=== PATIENT | male | born 1960 | race Caucasian/White ===

== ENCOUNTER → 2019-01-25 | Outpatient (CLI) | payer MEDICARE, BC ==
--- NOTE | 2019-01-25 12:10 | US ---
EXAMINATION TYPE: US venous doppler duplex LE RT DATE OF EXAM: 01/25/2019 11:44 AM COMPARISON: NONE CLINICAL HISTORY: M79.661 PAIN IN RT LOWER LIMB. Rt calf "jeronimo horse" x few months. No hx of bloo d clots. No blood thinners. No swelling. No redness. No previous surgeries. SIDE PERFORMED: Right TECHNIQUE: The lower extremity deep venous system is examined utilizing real time linear array sonog bailey with graded compression, doppler sonography and color-flow sonography. VESSELS IMAGED: External Iliac Vein (EIV) Common Femoral Vein Deep Femoral Vein Greater Saphenous Vein * Femoral Vein Popliteal Vein Small Saphenous Vein * Proximal Calf Veins (* superficial vessels) Right Leg: Negative for DVT IMPRESSION: 1. Right lower extremity ultrasound negative for deep venous thrombosis.
== END | disposition home or self-care (01) ==
LOC: RADUSWWP 11:10
PROVIDERS: ATTEND Internal Medicine
DX: M79.661 Pain in right lower leg (principal)

== ENCOUNTER 2019-08-12 06:54 | Day surgery (SDC) | payer MEDICARE, BC ==
[2019-08-07 14:25] VITALS: BMI 27.2
[~2019-08-12 06:54] MED LIST: LACTATED RINGERS 1,000 ML IV SCH; LIDOCAINE 1% 20 ML VIAL (10MG/ML) FOR IV START INTRADERMA PRN
[2019-08-12] MEDS ORDERED: LACTATED RINGERS 1,000 ML IV ONE (07:04)
[2019-08-12 07:13] VITALS: TEMP 97.7
[2019-08-12 07:26] LABS: Glucose,Whole Blood 191 mg/dL (75-99)
[2019-08-12] MEDS ORDERED: PROPOFOL 10 MG/ML 20 ML VIAL IV ONE (07:29)
--- NOTE | 2019-08-12 08:42 | P.PCN ---
Date of Procedure: 08/12/19 Description of Procedure: BRIEF HISTORY: Patient is a 58-year-old pleasant male scheduled for an elective colonoscopy as a part of evaluation for a personal history of colon polyps as well as family history of colon cancer. He reports 2 colonoscopies in the past and believes that the last 5 years ago was normal but that 10 years ago he had polyps. He also reports a family history of colon cancer in his father in his 50s. No other acute complaints at this time. PROCEDURE PERFORMED: Colonoscopy with polypectomy . PREOPERATIVE DIAGNOSIS: Personal history of colon polyps, family history of colon cancer in his father in his 50s ESTIMATED BLOOD LOSS: Minimal. IV sedation per Anesthesia. PROCEDURE: After informed consent was obtained, the patient, was brought into the endoscopy unit. IV sedation was administered by Anesthesia under continuous monitoring. Digital rectal examination was normal. Initially the Olympus CF-190 flexible video colonoscope was then inserted in the rectum, gradually advanced into the cecum without any difficulty. Careful examination was performed as the scope was gradually being withdrawn. The appendiceal orifice were visualized and appeared normal. Prep was excellent. Mucosa of the cecum, ascending colon, transverse colon, descending colon, sigmoid colon, and rectum appearedgrossly normal. There was a large flat tubulovillous-appearing polyp in the cecum on the distal side of the ileocecal valve measuring approximately 3 cm with a snare polypectomy used to take a piece of the polyp for sampling on the edge. 2 other polyps seen in the measuring 6 mm and 7 mm also removed with hot snare polypectomy. Retroflexion was performed in the rectum and no lesions were seen. The patient tolerated the procedure well. IMPRESSION: Large tubulovillous-appearing polyp in the cecum sampled with hot snare polypectomy. 2 polyps measuring 6 and 7 mm adjacent to this polyp removed with hot snare polypectomy. RECOMMENDATIONS: Findings of this examination were discussed with the patient and his . Await pathology from polypectomy. Patient will likely need referral to advance endoscopy service for further intervention and removal of the polyp, with referral based on findings from pathology.
[2019-08-12 08:46] VITALS: PULSE 65; RESP 18
[2019-08-12 09:10] VITALS: BP 111/70
== END 2019-08-12 09:45 | disposition home or self-care (01) ==
LOC: ORWHC2ENDO 06:54
PROVIDERS: ATTEND Internal Medicine
DX: Z12.11 Encounter for screening for malignant neoplasm of colon (principal); D12.0 Benign neoplasm of cecum; I10 Essential (primary) hypertension; E11.9 Type 2 diabetes mellitus without complications; E07.9 Disorder of thyroid, unspecified; F32.9 Major depressive disorder, single episode, unspecified; Z87.891 Personal history of nicotine dependence; Z80.0 Family history of malignant neoplasm of digestive organs; Z79.84 Long term (current) use of oral hypoglycemic drugs; Z79.890 Hormone replacement therapy; Z79.899 Other long term (current) drug therapy; Z90.89 Acquired absence of other organs; Z85.828 Personal history of other malignant neoplasm of skin; Z98.890 Other specified postprocedural states; Z83.71 Family history of colonic polyps; Z88.1 Allergy status to other antibiotic agents; Z88.0 Allergy status to penicillin; Z88.8 Allergy status to other drugs, medicaments and biological substances; Z88.5 Allergy status to narcotic agent; Z85.818 Personal history of malignant neoplasm of other sites of lip, oral cavity, and pharynx; Z86.010 Personal history of colon polyps
CPT/HCPCS: 88305; 45385; J2704

== ENCOUNTER 2020-01-05 05:30 | Emergency (ER) | payer MEDICARE, BC ==
[2020-01-05 05:39] VITALS: TEMP 97.7
[2020-01-05] MEDS ORDERED: SODIUM CHLORIDE 0.9% 1,000 ML IV STA (05:57)
[2020-01-05] MEDS ORDERED: KETOROLAC 30 MG/ML 1 ML VIAL IVP STA (06:08)
[2020-01-05 06:09] LABS: Basophils % (A) 0 %; Eosinophils # (A) 0.5 k/uL (0-0.7); Eosinophils % (A) 5 %; HCT 48.1 % (39.0-53.0); Lymphocytes # (A) 3.3 k/uL (1.0-4.8); Lymphocytes % (A) 30 %; MCH 33.4 pg (25.0-35.0); MCHC 33.4 g/dL (31.0-37.0); MCV 100.1 fL (80.0-100.0); Mean Platelet Volume 7.7; Monocytes # (A) 0.7 k/uL (0-1.0); Monocytes % (A) 7 %; Neutrophils # (A) 6.3 k/uL (1.3-7.7); Neutrophils % (A) 57 %; Platelet Count 311 k/uL (150-450); RDW 11.9 % (11.5-15.5); WBC 11.1 k/uL (3.8-10.6)
[2020-01-05 06:18] LABS: ALT 15 U/L (4-49); AST 23 U/L (17-59); African American GFR (CKD) >90 (>60 ml/min/1.73 sqM); Albumin 4.5 g/dL (3.5-5.0); Alkaline Phosphatase 63 U/L (38-126); Amylase 49 U/L (30-110); Anion Gap 10 mmol/L; Blood Urea Nitrogen 11 mg/dL (9-20); Calcium 9.6 mg/dL (8.4-10.2); Carbon Dioxide 24 mmol/L (22-30); Chloride 103 mmol/L (98-107); Glucose 152 mg/dL (74-99); Non-African American GFR(CKD) >90 (>60 ml/min/1.73 sqM); Potassium 4.7 mmol/L (3.5-5.1); Sodium 137 mmol/L (137-145); Total Bilirubin 0.7 mg/dL (0.2-1.3); Total Protein 7.5 g/dL (6.3-8.2)
--- NOTE | 2020-01-05 06:25 | ED ---
Abdominal Pain HPI - General Chief Complaint: Abdominal Pain Stated Complaint: Right flank pain Time Seen by Provider: 01/05/20 06:04 Source: patient, RN notes reviewed Mode of arrival: ambulatory Limitations: no limitations - History of Present Illness Initial Comments: This a 59-year-old male presents emergency Department chief complaint of right-sided abdominal, right flank pain. Patient states has been present for last 1 week. Patient states that the dull achy type pain is worse when he tries to turn over or especially when he tries to get out of bed. He denies any trauma. Denies any chest pain or shortness breath no fevers or chills. States that loose stools no melanotic stools or hematochezia. Patient has no complaints of dysuria or hematuria no nausea vomiting. Patient said no prior abdominal surgeries he does admit that he had a colonoscopy in August and which has small polyp removed at that time sounded very large polyp and was referred down to [place] to another surgeon. At this time he had the polyp removed. Patient does not believe he had any injury but he does state that his been doing more work around house. - Related Data Home Medications Medication Instructions Recorded Confirmed Divalproex Sodium [Depakote] 500 mg PO BID 06/11/14 08/12/19 metFORMIN HCL [Glucophage] 1,000 mg PO BID 06/11/14 08/12/19 Levothyroxine Sodium [Synthroid] 25 mcg PO DAILY 08/07/19 08/12/19 glipiZIDE [Glucotrol] 5 mg PO DAILY 08/07/19 08/12/19 Previous Rx's Medication Instructions Recorded Ibuprofen [Motrin] 600 mg PO Q8HR PRN #20 tab 01/05/20 Allergies Allergy/AdvReac Type Severity Reaction Status Date / Time tetracycline [Tetracycline] Allergy Rash/Hives Verified 01/05/20 05:39 Review of Systems ROS Statement: Those systems with pertinent positive or pertinent negative responses have been documented in the HPI. ROS Other: All systems not noted in ROS Statement are negative. Past Medical History Past Medical History: Cancer, Diabetes Mellitus, Hypertension, Thyroid Disorder Additional Past Medical History / Comment(s): skin cancer,throat cancer, had pancreatitis in summer or 2012 History of Any Multi-Drug Resistant Organisms: None Reported Past Surgical History: Appendectomy Additional Past Surgical History / Comment(s): basal cell removed lt shoulder , head Past Anesthesia/Blood Transfusion Reactions: No Reported Reaction Past Psychological History: Bipolar Smoking Status: Current every day smoker Past Alcohol Use History: Daily Past Drug Use History: Marijuana - Past Family History Mother Family Medical History: No Reported History General Exam Limitations: no limitations General appearance: alert, in no apparent distress Head exam: Present: atraumatic, normocephalic, normal inspection Eye exam: Present: normal appearance, PERRL, EOMI. Absent: scleral icterus, conjunctival injection, periorbital swelling ENT exam: Present: normal exam, normal oropharynx, mucous membranes moist Neck exam: Present: normal inspection. Absent: tenderness, meningismus, lymphadenopathy Respiratory exam: Present: normal lung sounds bilaterally, chest wall tenderness (Tenderness over lower ribs on the right). Absent: respiratory distress, wheezes, rales, rhonchi, stridor Cardiovascular Exam: Present: regular rate, normal rhythm, normal heart sounds. Absent: systolic murmur, diastolic murmur, rubs, gallop, clicks GI/Abdominal exam: Present: soft, tenderness, normal bowel sounds. Absent: distended, guarding, rebound, rigid Back exam: Absent: CVA tenderness (R), CVA tenderness (L) Neurological exam: Present: alert, oriented X3, CN II-XII intact Skin exam: Present: warm, dry, intact, normal color. Absent: rash Course Vital Signs 01/05/20 01/05/20 05:36 07:16 Temperature 97.7 F Pulse Rate 84 80 Respiratory 16 18 Rate Blood Pressure 111/79 158/83 O2 Sat by Pulse 99 98 Oximetry Medical Decision Making - Medical Decision Making 59-year-old male presented for right-sided abdominal pain. This is reproducible over the ribs. I do feel this is related to a strain. Patient workup was negative other than finding of aortic aneurysm 5.6 which is not ruptured. Pulse s are equal bilaterally lower extremity is. Patient advised to follow-up with the primary care physician and vascular surgeon. - Lab Data Result diagrams: 01/05/20 05:59 01/05/20 05:59 Lab Results 01/05/20 01/05/20 01/05/20 Range/Units 05:59 05:59 05:59 WBC 11.1 H (3.8-10.6) k/uL RBC 4.80 (4.30-5.90) m/uL Hgb 16.0 (13.0-17.5) gm/dL Hct 48.1 (39.0-53.0) % MCV 100.1 H (80.0-100.0) fL MCH 33.4 (25.0-35.0) pg MCHC 33.4 (31.0-37.0) g/dL RDW 11.9 (11.5-15.5) % Plt Count 311 (150-450) k/uL Neutrophils % 57 % Lymphocytes % 30 % Monocytes % 7 % Eosinophils % 5 % Basophils % 0 % Neutrophils # 6.3 (1.3-7.7) k/uL Lymphocytes # 3.3 (1.0-4.8) k/uL Monocytes # 0.7 (0-1.0) k/uL Eosinophils # 0.5 (0-0.7) k/uL Basophils # 0.0 (0-0.2) k/uL Sodium 137 (137-145) mmol/L Potassium 4.7 (3.5-5.1) mmol/L Chloride 103 (98-107) mmol/L Carbon Dioxide 24 (22-30) mmol/L Anion Gap 10 mmol/L BUN 11 (9-20) mg/dL Creatinine 0.91 (0.66-1.25) mg/dL Est GFR (CKD-EPI)AfAm >90 (>60 ml/min/1.73 sqM) Est GFR (CKD-EPI)NonAf >90 (>60 ml/min/1.73 sqM) Glucose 152 H (74-99) mg/dL Plasma Lactic Acid Gopal 1.6 (0.7-2.0) mmol/L Calcium 9.6 (8.4-10.2) mg/dL Total Bilirubin 0.7 (0.2-1.3) mg/dL AST 23 (17-59) U/L ALT 15 (4-49) U/L Alkaline Phosphatase 63 (38-126) U/L Total Protein 7.5 (6.3-8.2) g/dL Albumin 4.5 (3.5-5.0) g/dL Amylase 49 (30-110) U/L Lipase 135 (23-300) U/L Urine Color Urine Appearance (Clear) Urine pH (5.0-8.0) Ur Specific [place] (1.001-1.035) Urine Protein (Negative) Urine Glucose (UA) (Negative) Urine Ketones (Negative) Urine Blood (Negative) Urine Nitrite (Negative) Urine Bilirubin (Negative) Urine Urobilinogen (<2.0) mg/dL Ur Leukocyte Esterase (Negative) 01/05/20 Range/Units 07:05 WBC (3.8-10.6) k/uL RBC (4.30-5.90) m/uL Hgb (13.0-17.5) gm/dL Hct (39.0-53.0) % MCV (80.0-100.0) fL MCH (25.0-35.0) pg MCHC (31.0-37.0) g/dL RDW (11.5-15.5) % Plt Count (150-450) k/uL Neutrophils % % Lymphocytes % % Monocytes % % Eosinophils % % Basophils % % Neutrophils # (1.3-7.7) k/uL Lymphocytes # (1.0-4.8) k/uL Monocytes # (0-1.0) k/uL Eosinophils # (0-0.7) k/uL Basophils # (0-0.2) k/uL Sodium (137-145) mmol/L Potassium (3.5-5.1) mmol/L Chloride (98-107) mmol/L Carbon Dioxide (22-30) mmol/L Anion Gap mmol/L BUN (9-20) mg/dL Creatinine (0.66-1.25) mg/dL Est GFR (CKD-EPI)AfAm (>60 ml/min/1.73 sqM) Est GFR (CKD-EPI)NonAf (>60 ml/min/1.73 sqM) Glucose (74-99) mg/dL Plasma Lactic Acid Gopal (0.7-2.0) mmol/L Calcium (8.4-10.2) mg/dL Total Bilirubin (0.2-1.3) mg/dL AST (17-59) U/L ALT (4-49) U/L Alkaline Phosphatase (38-126) U/L Total Protein (6.3-8.2) g/dL Albumin (3.5-5.0) g/dL Amylase (30-110) U/L Lipase (23-300) U/L Urine Color Light Yellow Urine Appearance Clear (Clear) Urine pH 6.5 (5.0-8.0) Ur Specific [place] 1.008 (1.001-1.035) Urine Protein Negative (Negative) Urine Glucose (UA) Negative (Negative) Urine Ketones Negative (Negative) Urine Blood Negative (Negative) Urine Nitrite Negative (Negative) Urine Bilirubin Negative (Negative) Urine Urobilinogen <2.0 (<2.0) mg/dL Ur Leukocyte Esterase Negative (Negative) Disposition Clinical Impression: Muscle strain of anterior chest wall Disposition: HOME SELF-CARE Condition: Stable Instructions (If sedation given, give patient instructions): Muscle Strain (ED) Additional Instructions: Please return to the Emergency Department if symptoms worsen or any other concerns. Prescriptions: Ibuprofen [Motrin] 600 mg PO Q8HR PRN #20 tab PRN Reason: Pain Is patient prescribed a controlled substance at d/c from ED?: No Referrals: Marin Eaton MD [Primary Care Provider] - 1-2 days Time of Disposition: 07:39
--- NOTE | 2020-01-05 06:49 | XR ---
EXAMINATION TYPE: XR KUB DATE OF EXAM: 01/05/2020 COMPARISON: NONE HISTORY: Abdominal pain TECHNIQUE: 2 views FINDINGS: 2 views upright show a normal bowel gas pattern. There is no sign of intestinal obstruction or pneumoperitoneum. Fecal pattern is normal. There are no pathologic calcifications. Lung bases are clear. IMPRESSION: Nonacute abdomen. No change.
[2020-01-05 07:13] LABS: Appearance,Urine Clear (Clear); Bilirubin,Urine Negative (Negative); Blood,Urine Negative (Negative); Color,Urine Light Yellow; Glucose,Urine (UA) Negative (Negative); Ketones,Urine Negative (Negative); Leukocyte Esterase,Urine Negative (Negative); Nitrite,Urine Negative (Negative); PH, Urine 6.5 (5.0-8.0); Protein,Urine Negative (Negative); Specific Gravity,Urine 1.008 (1.001-1.035); Urobilinogen,Urine <2.0 mg/dL (<2.0)
[2020-01-05 07:17] VITALS: BP 158/83; PULSE 80; RESP 18
--- NOTE | 2020-01-05 07:28 | CT ---
EXAMINATION TYPE: CT abdomen pelvis w con DATE OF EXAM: 01/05/2020 REFERENCE: NONE HISTORY: Abdominal pain HISTORY: Right sided flank pain. CT DLP: 967 mGy Automated exposure control for dose reduction was used. TECHNIQUE: Helical acquisition through the abdomen and pelvis was obtained following the oral ingesti on of without Oral Contrast and following intravenous administration of 100ml mL of Isovue 300. The d ricardo was reformatted in axial, coronal and sagittal projections. FINDINGS: There is minimal dependent atelectasis at the lung bases. There is no pleural or pericardi al fluid. The heart is not enlarged. Within the abdomen, the liver, spleen and gallbladder are normal. There is mild fullness to both adrenal glands but no definite adrenal mass is seen. Both kidneys demonstrate function and appear morphologically normal. The pancreas is unremarkable. There is a infrarenal abdominal aortic aneurysm with maximal transverse diameter of 5.6 cm. This exte nds to but does not involve the aortic bifurcation. There is moderate atheromatous calcification of t he visualized arterial tree. There is no significant retroperitoneal, iliac or inguinal adenopathy. There is calcification of the prostate gland. There is thickening of the bladder wall measuring up to 5.3 mm in width. This may relate to chronic bladder obstruction. Cystitis would need to BE excluded. There are scattered diverticula within the sigmoid colon without radiographic evidence of diverticuli tis. The appendix is unremarkable. Small bowel loops are of normal caliber. There is no free fluid and no free air identified. There is facet arthropathy within the lumbar facets. There is mild wedging of the T12 and L1 vertebra l IMPRESSION: 1. NO EVIDENCE OF HYDRONEPHROSIS OR NEPHROLITHIASIS. 2. INFRARENAL ABDOMINAL AORTIC ANEURYSM WITH MAXIMAL TRANSVERSE DIAMETER OF 5.6 3. CENTIMETERS. 3. BLADDER WALL THICKENING, EITHER DUE TO CHRONIC BLADDER OBSTRUCTION OR CYSTITIS. PLEASE CORRELATE C LINICALLY. 4. UNCOMPLICATED DIVERTICULOSIS OF THE SIGMOID COLON.
[2020-01-05] MEDS ORDERED: ACET/COD 300 MG/30 MG STARTER PACK 6 TAB BTL PO STA (07:37)
== END 2020-01-05 07:51 | disposition home or self-care (01) ==
LOC: EC 05:30
DX: S29.011A Strain of muscle and tendon of front wall of thorax, initial encounter (principal); E11.9 Type 2 diabetes mellitus without complications; I10 Essential (primary) hypertension; F31.9 Bipolar disorder, unspecified; E07.9 Disorder of thyroid, unspecified; I71.4 Abdominal aortic aneurysm, without rupture; F17.200 Nicotine dependence, unspecified, uncomplicated; Z79.84 Long term (current) use of oral hypoglycemic drugs; Z79.890 Hormone replacement therapy; Z79.899 Other long term (current) drug therapy; Z88.1 Allergy status to other antibiotic agents; Z85.828 Personal history of other malignant neoplasm of skin
CPT/HCPCS: 99284; 96374; 96361 ×2; 36415; 80053; 82150; 83605; 83690; 85025; 81003; 74018; 74177; J1885; Q9967

== ENCOUNTER 2020-08-12 06:24 | Day surgery (SDC) | payer MEDICARE, BC ==
[2020-08-10 16:51] VITALS: BMI 26.5
[~2020-08-12 06:24] MED LIST changes: +LIDOCAINE 1% (10MG/ML) FOR IV START INTRADERMA PRN; -LIDOCAINE 1% 20 ML VIAL (10MG/ML) FOR IV START INTRADERMA PRN
[2020-08-12] MEDS ORDERED: LACTATED RINGERS 1,000 ML IV ONE (06:40)
[2020-08-12 06:53] LABS: Glucose,Whole Blood 189 mg/dL (75-99)
[2020-08-12 07:01] VITALS: RESP 16; TEMP 98
[2020-08-12] MEDS ORDERED: PROPOFOL 10 MG/ML 20 ML VIAL IV ONE (07:10)
[2020-08-12] MEDS ORDERED: LIDOCAINE 1% INJ 10MG/ML (20 ML MDV) ONE (07:10)
--- NOTE | 2020-08-12 07:23 | P.PCN ---
Date of Procedure: 08/12/20 Procedure(s) Performed: BRIEF HISTORY: Patient is a 59-year-old, pleasant, male scheduled for an upper endoscopy as a part of evaluation of chronic epigastric pain for the last 4 months duration. He was recently started on Protonix 40 mg twice daily and symptoms gradually improving.. PROCEDURE PERFORMED: Esophagogastroduodenoscopy. With the biopsy PREOPERATIVE DIAGNOSIS: . chronic epigastric pain of 4 months duration IV sedation per anesthesia. PROCEDURE: After informed consent was obtained, the patient was brought into the endoscopy unit. IV sedation was administered by Anesthesia under continuous monitoring. Initially the Olympus GIF-140 video endoscope was inserted into the mouth. Esophagus intubated without any difficulty. It was gradually advanced into the stomach and duodenum and carefully examined. The bulb and the second part of the duodenum appeared normal. The scope at this time was withdrawn to the stomach, adequately insufflated with air, and upon careful examination, mucosa of the antrum, had mild mottling of the mucosa consistent with gastritis and biopsies were done from this area. The body, cardia and the fundus appeared normal. The scope was then withdrawn into the esophagus. The GE junction was located at 39 cm from the incisors. there was one small erosion at the GE junction consistent with LA grade a reflux esophagitis. The rest of the esophagus appeared normal. biopsies were done from the distal esophagus. The patient tolerated the procedure well. IMPRESSION: 1. Mild antral gastritis 2. One superficial erosion at the GE junction consistent with LA grade A reflux esophagitis. RECOMMENDATIONS: The findings of this examination were discussed with the patient as well as his family. He was advised to follow with the biopsy results. He was advised to continue with Protonix 40 mg twice daily and continue to follow antireflux measures.
[2020-08-12 07:34] VITALS: BP 155/78; PULSE 95
== END 2020-08-12 08:28 | disposition home or self-care (01) ==
LOC: ORWHC2ENDO 06:24
PROVIDERS: ATTEND Internal Medicine Gastroenterology
DX: K29.50 Unspecified chronic gastritis without bleeding (principal); K21.00 Gastro-esophageal reflux disease with esophagitis, without bleeding; G89.29 Other chronic pain; I10 Essential (primary) hypertension; F17.210 Nicotine dependence, cigarettes, uncomplicated; E11.9 Type 2 diabetes mellitus without complications; E07.9 Disorder of thyroid, unspecified; F31.9 Bipolar disorder, unspecified; Z79.84 Long term (current) use of oral hypoglycemic drugs; Z79.890 Hormone replacement therapy; Z79.899 Other long term (current) drug therapy; Z88.1 Allergy status to other antibiotic agents
CPT/HCPCS: 88305; 43239; J2001; J2704

== ENCOUNTER 2020-10-22 03:55 | Emergency (ER) | payer MEDICARE, BC ==
[2020-10-22 04:05] VITALS: RESP 18
[2020-10-22] MEDS ORDERED: SODIUM CHLORIDE 0.9% 1,000 ML IV STA (04:11)
[2020-10-22] MEDS ORDERED: MORPHINE SULFATE 4 MG/ML SYRINGE IV STA (04:11)
--- NOTE | 2020-10-22 04:13 | ED ---
Abdominal Pain HPI - General Chief Complaint: Abdominal Pain Stated Complaint: Abd Pain Time Seen by Provider: 10/22/20 04:02 Source: patient, RN notes reviewed, old records reviewed Mode of arrival: ambulatory Limitations: no limitations - History of Present Illness Initial Comments: This is a 60-year-old male coming in for evaluation of abdominal pain. Patient is very emotional states pain woke him up from sleep. Patient states had nothing but complications nothing requiring surgery or nothing serious but which is chronic pain ever since having abdominal surgery for abdominal aneurysm. Patient is afebrile no significant weight loss. Decreased appetite and normal bowel movements. Otherwise no other significant complaints MD Complaint: abdominal pain Location: diffuse Radiation: epigastric Migration to: epigastric Severity: moderate Severity scale (1-10): 4 Quality: cramping, stabbing Consistency: intermittent Improves With: nothing Context: recent surgery/procedure (1 year) Associated Symptoms: nausea Treatments Prior to Arrival: NSAIDs, antacids - Related Data Home Medications Medication Instructions Recorded Confirmed Divalproex Sodium [Depakote] 500 mg PO TID 06/11/14 08/12/20 metFORMIN HCL [Glucophage] 1,000 mg PO BID 06/11/14 08/12/20 Levothyroxine Sodium [Synthroid] 25 mcg PO DAILY 08/07/19 08/12/20 glipiZIDE [Glucotrol] 5 mg PO DAILY 08/07/19 08/12/20 Lisinopril [Prinivil] 10 mg PO DAILY 08/10/20 08/12/20 Pantoprazole Sodium 40 mg PO DAILY 08/10/20 08/12/20 Allergies Allergy/AdvReac Type Severity Reaction Status Date / Time tetracycline [Tetracycline] Allergy Rash/Hives Verified 10/22/20 04:04 Review of Systems ROS Statement: Those systems with pertinent positive or pertinent negative responses have been documented in the HPI. ROS Other: All systems not noted in ROS Statement are negative. Past Medical History Past Medical History: Cancer, Diabetes Mellitus, Hypertension, Thyroid Disorder Additional Past Medical History / Comment(s): skin cancer,throat cancer, had pancreatitis in summer or 2012, ABD. PAIN WITH NAUSEA History of Any Multi-Drug Resistant Organisms: None Reported Past Surgical History: Appendectomy Additional Past Surgical History / Comment(s): basal cell removed lt shoulder & head, COLONOSCOPY, AAA REPAIR-3 MONTHS AGO AT [facility]. Past Anesthesia/Blood Transfusion Reactions: No Reported Reaction Past Psychological History: Bipolar Smoking Status: Current every day smoker Past Alcohol Use History: None Reported Past Drug Use History: Marijuana - Past Family History Mother Family Medical History: No Reported History General Exam Limitations: no limitations General appearance: alert, in no apparent distress Head exam: Present: atraumatic, normocephalic, normal inspection Eye exam: Present: normal appearance, PERRL, EOMI. Absent: scleral icterus, conjunctival injection, periorbital swelling ENT exam: Present: normal exam, mucous membranes moist Neck exam: Present: normal inspection. Absent: tenderness, meningismus, lymphadenopathy Respiratory exam: Present: normal lung sounds bilaterally. Absent: respiratory distress, wheezes, rales, rhonchi, stridor Cardiovascular Exam: Present: regular rate, normal rhythm, normal heart sounds. Absent: systolic murmur, diastolic murmur, rubs, gallop, clicks GI/Abdominal exam: Present: soft, normal bowel sounds. Absent: distended, tenderness, guarding, rebound, rigid Extremities exam: Present: normal inspection, full ROM, normal capillary refill. Absent: tenderness, pedal edema, joint swelling, calf tenderness Back exam: Present: normal inspection Neurological exam: Present: alert, oriented X3, CN II-XII intact Psychiatric exam: Present: normal affect, normal mood Skin exam: Present: warm, dry, intact, normal color. Absent: rash Course Vital Signs 10/22/20 10/22/20 03:58 05:30 Temperature 98.4 F 98 F Pulse Rate 82 88 Respiratory 18 18 Rate Blood Pressure 91/62 103/79 O2 Sat by Pulse 100 97 Oximetry - Reevaluation(s) Reevaluation #1: 10/22/20 05:03 medical record is reviewed Reevaluation #2: 10/22/20 07:04 Patient reevaluated and symptoms are improved Reevaluation #3: 10/22/20 07:04 spoke patient length regarding findings, questions have been answered Medical Decision Making - Medical Decision Making 60 male DF for eval [place] pain chronic abdominal pain for one year. Patient feels better here in the ER is in no distress. Labwork scan are normal. Patient can be discharged home - Lab Data Result diagrams: 10/22/20 04:39 10/22/20 04:39 Lab Results 10/22/20 10/22/20 10/22/20 Range/Units 04:39 04:39 04:39 WBC 13.2 H (3.8-10.6) k/uL RBC 5.05 (4.30-5.90) m/uL Hgb 16.9 (13.0-17.5) gm/dL Hct 49.9 (39.0-53.0) % MCV 98.8 (80.0-100.0) fL MCH 33.5 (25.0-35.0) pg MCHC 33.9 (31.0-37.0) g/dL RDW 12.6 (11.5-15.5) % Plt Count 266 (150-450) k/uL MPV 7.6 Neutrophils % 75 % Lymphocytes % 16 % Monocytes % 6 % Eosinophils % 2 % Basophils % 0 % Neutrophils # 9.8 H (1.3-7.7) k/uL Lymphocytes # 2.2 (1.0-4.8) k/uL Monocytes # 0.8 (0-1.0) k/uL Eosinophils # 0.3 (0-0.7) k/uL Basophils # 0.0 (0-0.2) k/uL Sodium 136 L (137-145) mmol/L Potassium 4.5 (3.5-5.1) mmol/L Chloride 105 (98-107) mmol/L Carbon Dioxide 25 (22-30) mmol/L Anion Gap 6 mmol/L BUN 13 (9-20) mg/dL Creatinine 0.84 (0.66-1.25) mg/dL Est GFR (CKD-EPI)AfAm >90 (>60 ml/min/1.73 sqM) Est GFR (CKD-EPI)NonAf >90 (>60 ml/min/1.73 sqM) Glucose 218 H (74-99) mg/dL Plasma Lactic Acid Gopal 1.3 (0.7-2.0) mmol/L Calcium 9.5 (8.4-10.2) mg/dL Total Bilirubin 1.2 (0.2-1.3) mg/dL AST 28 (17-59) U/L ALT 25 (4-49) U/L Alkaline Phosphatase 86 (38-126) U/L Total Protein 7.6 (6.3-8.2) g/dL Albumin 4.5 (3.5-5.0) g/dL Amylase 49 (30-110) U/L Lipase 159 (23-300) U/L Urine Color Urine Appearance (Clear) Urine pH (5.0-8.0) Ur Specific [place] (1.001-1.035) Urine Protein (Negative) Urine Glucose (UA) (Negative) Urine Ketones (Negative) Urine Blood (Negative) Urine Nitrite (Negative) Urine Bilirubin (Negative) Urine Urobilinogen (<2.0) mg/dL Ur Leukocyte Esterase (Negative) Urine Opiates Screen (NotDetected) Ur Oxycodone Screen (NotDetected) Urine Methadone Screen (NotDetected) Ur Propoxyphene Screen (NotDetected) Ur Barbiturates Screen (NotDetected) U Tricyclic Antidepress (NotDetected) Ur Phencyclidine Scrn (NotDetected) Ur Amphetamines Screen (NotDetected) U Methamphetamines Scrn (NotDetected) U Benzodiazepines Scrn (NotDetected) Urine Cocaine Screen (NotDetected) U Marijuana (THC) Screen (NotDetected) Serum Alcohol <10 mg/dL 10/22/20 10/22/20 Range/Units 04:45 04:45 WBC (3.8-10.6) k/uL RBC (4.30-5.90) m/uL Hgb (13.0-17.5) gm/dL Hct (39.0-53.0) % MCV (80.0-100.0) fL MCH (25.0-35.0) pg MCHC (31.0-37.0) g/dL RDW (11.5-15.5) % Plt Count (150-450) k/uL MPV Neutrophils % % Lymphocytes % % Monocytes % % Eosinophils % % Basophils % % Neutrophils # (1.3-7.7) k/uL Lymphocytes # (1.0-4.8) k/uL Monocytes # (0-1.0) k/uL Eosinophils # (0-0.7) k/uL Basophils # (0-0.2) k/uL Sodium (137-145) mmol/L Potassium (3.5-5.1) mmol/L Chloride (98-107) mmol/L Carbon Dioxide (22-30) mmol/L Anion Gap mmol/L BUN (9-20) mg/dL Creatinine (0.66-1.25) mg/dL Est GFR (CKD-EPI)AfAm (>60 ml/min/1.73 sqM) Est GFR (CKD-EPI)NonAf (>60 ml/min/1.73 sqM) Glucose (74-99) mg/dL Plasma Lactic Acid Gopal (0.7-2.0) mmol/L Calcium (8.4-10.2) mg/dL Total Bilirubin (0.2-1.3) mg/dL AST (17-59) U/L ALT (4-49) U/L Alkaline Phosphatase (38-126) U/L Total Protein (6.3-8.2) g/dL Albumin (3.5-5.0) g/dL Amylase (30-110) U/L Lipase (23-300) U/L Urine Color Light Yellow Urine Appearance Clear (Clear) Urine pH 6.5 (5.0-8.0) Ur Specific [place] 1.004 (1.001-1.035) Urine Protein Negative (Negative) Urine Glucose (UA) Negative (Negative) Urine Ketones Negative (Negative) Urine Blood Negative (Negative) Urine Nitrite Negative (Negative) Urine Bilirubin Negative (Negative) Urine Urobilinogen <2.0 (<2.0) mg/dL Ur Leukocyte Esterase Negative (Negative) Urine Opiates Screen Not Detected (NotDetected) Ur Oxycodone Screen Not Detected (NotDetected) Urine Methadone Screen Not Detected (NotDetected) Ur Propoxyphene Screen Not Detected (NotDetected) Ur Barbiturates Screen Not Detected (NotDetected) U Tricyclic Antidepress Not Detected (NotDetected) Ur Phencyclidine Scrn Not Detected (NotDetected) Ur Amphetamines Screen Not Detected (NotDetected) U Methamphetamines Scrn Not Detected (NotDetected) U Benzodiazepines Scrn Not Detected (NotDetected) Urine Cocaine Screen Not Detected (NotDetected) U Marijuana (THC) Screen Detected H (NotDetected) Serum Alcohol mg/dL - Radiology Data Radiology results: report reviewed (CT of the abdomen and pelvis is negative for acute disease), image reviewed Disposition Clinical Impression: Abdominal pain Disposition: HOME SELF-CARE Condition: Good Instructions (If sedation given, give patient instructions): Abdominal Pain (ED) Is patient prescribed a controlled substance at d/c from ED?: No Referrals: Marin Eaton MD [Primary Care Provider] - 1-2 days
[2020-10-22] MEDS ORDERED: NICOTINE 14MG/24HR PATCH TRANSDERM STA (04:18)
[2020-10-22 04:46] LABS: Basophils % (A) 0 %; Eosinophils # (A) 0.3 k/uL (0-0.7); Eosinophils % (A) 2 %; HCT 49.9 % (39.0-53.0); HGB 16.9 gm/dL (13.0-17.5); Lymphocytes # (A) 2.2 k/uL (1.0-4.8); Lymphocytes % (A) 16 %; MCH 33.5 pg (25.0-35.0); MCHC 33.9 g/dL (31.0-37.0); MCV 98.8 fL (80.0-100.0); Mean Platelet Volume 7.6; Monocytes # (A) 0.8 k/uL (0-1.0); Monocytes % (A) 6 %; Neutrophils # (A) 9.8 k/uL (1.3-7.7); Neutrophils % (A) 75 %; Platelet Count 266 k/uL (150-450); RBC 5.05 m/uL (4.30-5.90); RDW 12.6 % (11.5-15.5); WBC 13.2 k/uL (3.8-10.6)
[2020-10-22 05:02] LABS: Appearance,Urine Clear (Clear); Bilirubin,Urine Negative (Negative); Blood,Urine Negative (Negative); Color,Urine Light Yellow; Glucose,Urine (UA) Negative (Negative); Ketones,Urine Negative (Negative); Leukocyte Esterase,Urine Negative (Negative); Nitrite,Urine Negative (Negative); PH, Urine 6.5 (5.0-8.0); Protein,Urine Negative (Negative); Specific Gravity,Urine 1.004 (1.001-1.035); Urobilinogen,Urine <2.0 mg/dL (<2.0)
[2020-10-22 05:06] LABS: ALT 25 U/L (4-49); AST 28 U/L (17-59); African American GFR (CKD) >90 (>60 ml/min/1.73 sqM); Albumin 4.5 g/dL (3.5-5.0); Alcohol <10 mg/dL; Alkaline Phosphatase 86 U/L (38-126); Amylase 49 U/L (30-110); Anion Gap 6 mmol/L; Blood Urea Nitrogen 13 mg/dL (9-20); Calcium 9.5 mg/dL (8.4-10.2); Carbon Dioxide 25 mmol/L (22-30); Chloride 105 mmol/L (98-107); Glucose 218 mg/dL (74-99); Lipase 159 U/L (23-300); Non-African American GFR(CKD) >90 (>60 ml/min/1.73 sqM); Potassium 4.5 mmol/L (3.5-5.1); Sodium 136 mmol/L (137-145); Total Bilirubin 1.2 mg/dL (0.2-1.3); Total Protein 7.6 g/dL (6.3-8.2)
[2020-10-22 05:17] LABS: Amphetamine Screen,Urine Not Detected (NotDetected); Barbiturate Screen,Urine Not Detected (NotDetected); Benzodiazepines Screen,Urine Not Detected (NotDetected); Cocaine Screen,Urine Not Detected (NotDetected); Methadone Screen, Urine Not Detected (NotDetected); Opiate Screen,Urine Not Detected (NotDetected); Oxycodone Screen, Urine Not Detected (NotDetected); Phencyclidine Screen,Urine Not Detected (NotDetected); Tricyclic Antidepressant,Urine Not Detected (NotDetected); Urn Cannabinoid Scrn Detected (NotDetected)
[2020-10-22 05:35] VITALS: BP 103/79; PULSE 88; TEMP 98
--- NOTE | 2020-10-22 06:17 | CT ---
EXAM: CT Abdomen and Pelvis With Intravenous Contrast CLINICAL HISTORY: ITS.REASON CT Reason: abdominal pain TECHNIQUE: Axial computed tomography images of the abdomen and pelvis with intravenous contrast. CTDI is 20.77 mGy and DLP is 1037.7 mGy-cm. This CT exam was performed using one or more of the following dose reduction techniques: automated exposure control, adjustment of the mA and/or kV according to patient size, and/or use of iterative reconstruction technique. COMPARISON: CT 01/05/20. FINDINGS: Lung bases: Bibasilar atelectasis/pneumonitis. ABDOMEN: Liver: Unremarkable. Gallbladder and bile ducts: Unremarkable. Pancreas: Unremarkable. Spleen: Unremarkable. Adrenals: Bilateral adrenal thickening. Kidneys and ureters: Punctate nephrolithiasis Nonspecific bilateral perinephric stranding. Bilateral renal pelviectasis or extrarenal pelves. No visualized ureteral stone. Stomach and bowel: Stool-filled colon. Mild rectosigmoid wall thickening or underdistention. Fluid and the small bowel, query ileus or enteritis. PELVIS: Appendix: Appendix not visualized. Bladder: Mild bladder wall thickening. Reproductive: Unremarkable as visualized. ABDOMEN and PELVIS: Intraperitoneal space: No free air. Bones/joints: No acute fracture. Soft tissues: Small fat-containing umbilical and inguinal hernias. Vasculature: Aortobiiliac stent graft noted. Aneurysm sac again seen measuring 6 cm. Occlusion of the left SFA also again noted. Lymph nodes: Unremarkable. IMPRESSION: 1. Stool-filled colon. 2. Additional findings, as above.
== END 2020-10-22 07:15 | disposition home or self-care (01) ==
LOC: EC 03:55
DX: G89.29 Other chronic pain (principal); R10.9 Unspecified abdominal pain; F31.9 Bipolar disorder, unspecified; E11.9 Type 2 diabetes mellitus without complications; I10 Essential (primary) hypertension; F17.200 Nicotine dependence, unspecified, uncomplicated; E07.9 Disorder of thyroid, unspecified; Z79.899 Other long term (current) drug therapy; Z79.84 Long term (current) use of oral hypoglycemic drugs; Z79.890 Hormone replacement therapy; Z88.1 Allergy status to other antibiotic agents; Z87.19 Personal history of other diseases of the digestive system; Z85.828 Personal history of other malignant neoplasm of skin; Z85.818 Personal history of malignant neoplasm of other sites of lip, oral cavity, and pharynx; Z98.890 Other specified postprocedural states
CPT/HCPCS: 36415; 80053; 82150; 83605; 83690; 85025; 81003; 80306; 74177; 99284; 96374; 96361; G0480; S4990; J2270; Q9967; 80320

== ENCOUNTER 2021-01-16 | Emergency (ER) | payer MEDICARE, BC ==
--- NOTE | 2021-01-16 19:38 | ED ---
General Adult HPI - General Chief complaint: Skin/Abscess/Foreign Body Stated complaint: Post Skin surg/not healing Time Seen by Provider: 01/16/21 19:17 Source: patient Mode of arrival: ambulatory Limitations: no limitations - History of Present Illness Initial comments: 60-year-old male presents to the emergency department with a chief complaint of a wound check. 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 Patient was then contacted again for revision which occurred about one week ago. Patient reports there is a strip of his lower lip measuring approximately 3 cm 5 mm that was removed and the mucosal surface was used to form a new lower lip. Patient states he had no to little sutures removed several days ago and had multiple absorbable sutures that are still in place. Patient was also started on Augmentin but had indigestion problems so contacted the surgeon who started him on Keflex instead. Patient is concerned that the infection is affected and could not get into the surgeon's office on time. He denies any fevers or chills or swelling. States he still having pain at the surgical site. - Related Data Home Medications Medication Instructions Recorded Confirmed Divalproex Sodium [Depakote] 500 mg PO TID 06/11/14 08/12/20 metFORMIN HCL [Glucophage] 1,000 mg PO BID 06/11/14 08/12/20 Levothyroxine Sodium [Synthroid] 25 mcg PO DAILY 08/07/19 08/12/20 glipiZIDE [Glucotrol] 5 mg PO DAILY 08/07/19 08/12/20 Lisinopril [Prinivil] 10 mg PO DAILY 08/10/20 08/12/20 Pantoprazole Sodium 40 mg PO DAILY 08/10/20 08/12/20 Allergies Allergy/AdvReac Type Severity Reaction Status Date / Time tetracycline [Tetracycline] Allergy Rash/Hives Verified 01/16/21 18:56 Review of Systems ROS Statement: Those systems with pertinent positive or pertinent negative responses have been documented in the HPI. ROS Other: All systems not noted in ROS Statement are negative. Past Medical History Past Medical History: Cancer, Diabetes Mellitus, Hypertension, Thyroid Disorder Additional Past Medical History / Comment(s): skin cancer,throat cancer, had pancreatitis in summer or 2012, ABD. PAIN WITH NAUSEA History of Any Multi-Drug Resistant Organisms: None Reported Past Surgical History: Appendectomy Additional Past Surgical History / Comment(s): basal cell removed lt shoulder & head, COLONOSCOPY, AAA REPAIR-3 MONTHS AGO AT [facility]. Squamous cell carcinoma removed form lwoer lip December 2020 Past Anesthesia/Blood Transfusion Reactions: No Reported Reaction Past Psychological History: Bipolar Smoking Status: Current every day smoker Past Alcohol Use History: Daily Past Drug Use History: Marijuana - Past Family History Mother Family Medical History: No Reported History General Exam Limitations: no limitations General appearance: alert, in no apparent distress Head exam: Present: atraumatic, normocephalic, normal inspection Eye exam: Present: normal appearance, PERRL, EOMI Pupils: Present: normal accommodation ENT exam: Present: normal exam, normal oropharynx (Well-healing surgical site on the lower lip. No signs of erythema, warmth or discharge noted. Slight tenderness to the touch.), mucous membranes moist, TM's normal bilaterally, normal external ear exam Neck exam: Present: normal inspection, full ROM. Absent: lymphadenopathy Respiratory exam: Present: normal lung sounds bilaterally. Absent: respiratory distress, wheezes, rales, rhonchi, stridor Cardiovascular Exam: Present: regular rate, normal rhythm, normal heart sounds Extremities exam: Present: normal inspection, full ROM, normal capillary refill. Absent: tenderness, pedal edema, joint swelling Back exam: Present: normal inspection, full ROM. Absent: tenderness, CVA tenderness (R), CVA tenderness (L) Neurological exam: Present: alert, oriented X3 Psychiatric exam: Present: normal affect, normal mood Skin exam: Present: warm, dry, intact, normal color Course Vital Signs 01/16/21 18:51 Temperature 98.2 F Pulse Rate 91 Respiratory 18 Rate Blood Pressure 88/67 O2 Sat by Pulse 99 Oximetry Medical Decision Making - Medical Decision Making 60-year-old male presents to the emergency department with chief complaint of a healing wound. On physical examination, the surgical site on the lower lip appears to be healing well. No signs of infection. No erythematous changes, discharge or swelling noted. Absorbable sutures are still seen. There were placed about one week ago. I advised him to continue taking the Keflex. Vital signs are within normal limits. I advised him to follow up with his cake cutter machine that performed the surgery. Strict return parameters were thoroughly discussed the patient was understanding and agreeable. Case discussed with Dr. Mai. Disposition Clinical Impression: Laceration re-check Disposition: HOME SELF-CARE Condition: Stable Instructions (If sedation given, give patient instructions): Care For Your Absorbable Stitches (ED) Additional Instructions: Follow-up with a cake cutter machine. Return to emergency department if symptoms worsen. Is patient prescribed a controlled substance at d/c from ED?: No Referrals: Marin Eaton MD [Primary Care Provider] - 1-2 days Time of Disposition: 19:37
== END 2021-01-16 19:40 | disposition home or self-care (01) ==
CPT/HCPCS: 99282

== ENCOUNTER → 2021-01-18 | Outpatient (CLI) | payer MEDICARE, BC ==
--- NOTE | 2021-01-18 16:11 | XR ---
Left foot HISTORY: Trauma and pain 3 views the left foot Bone mineralization, joint spaces and alignment are maintained. There is a plantar calcaneus spur. So me spurring present at the tibiotalar joint. IMPRESSION: No fracture or dislocation.
== END | disposition home or self-care (01) ==
LOC: RADXRMAIN 12:24
PROVIDERS: ATTEND Internal Medicine
DX: M79.672 Pain in left foot (principal); S99.922A Unspecified injury of left foot, initial encounter

== ENCOUNTER 2021-02-08 23:03 | Emergency (ER) | payer MEDICARE, BC ==
[2021-02-08 23:08] VITALS: TEMP 97.3
[2021-02-08] MEDS ORDERED: SODIUM CHLORIDE 0.9% 1,000 ML IV ONE (23:53)
[2021-02-08] MEDS ORDERED: HYDROmorphone 0.5 MG/0.5 ML SYRINGE IVP STA (23:53)
[2021-02-08] MEDS ORDERED: ONDANSETRON 4 MG/2 ML VIAL IVP STA (23:53)
[2021-02-09 00:26] LABS: Basophils % (A) 0 %; Eosinophils # (A) 0.4 k/uL (0-0.7); Eosinophils % (A) 3 %; HCT 46.2 % (39.0-53.0); HGB 15.5 gm/dL (13.0-17.5); Lymphocytes # (A) 3.2 k/uL (1.0-4.8); Lymphocytes % (A) 30 %; MCH 32.8 pg (25.0-35.0); MCHC 33.6 g/dL (31.0-37.0); MCV 97.7 fL (80.0-100.0); Mean Platelet Volume 7.5; Monocytes # (A) 0.8 k/uL (0-1.0); Monocytes % (A) 8 %; Neutrophils # (A) 6.1 k/uL (1.3-7.7); Neutrophils % (A) 57 %; Platelet Count 297 k/uL (150-450); RBC 4.73 m/uL (4.30-5.90); RDW 12.9 % (11.5-15.5); WBC 10.6 k/uL (3.8-10.6)
[2021-02-09 00:46] LABS: ALT 20 U/L (4-49); AST 25 U/L (17-59); African American GFR (CKD) >90 (>60 ml/min/1.73 sqM); Albumin 4.2 g/dL (3.5-5.0); Alkaline Phosphatase 85 U/L (38-126); Anion Gap 9 mmol/L; Blood Urea Nitrogen 12 mg/dL (9-20); Calcium 9.9 mg/dL (8.4-10.2); Carbon Dioxide 26 mmol/L (22-30); Chloride 102 mmol/L (98-107); Glucose 140 mg/dL (74-99); Lipase 181 U/L (23-300); Non-African American GFR(CKD) >90 (>60 ml/min/1.73 sqM); Potassium 4.6 mmol/L (3.5-5.1); Sodium 137 mmol/L (137-145); Total Bilirubin 0.5 mg/dL (0.2-1.3); Total Protein 6.9 g/dL (6.3-8.2)
[2021-02-09 00:50] LABS: Appearance,Urine Clear (Clear); Bilirubin,Urine Negative (Negative); Blood,Urine Negative (Negative); Color,Urine Colorless; Glucose,Urine (UA) Trace (Negative); Ketones,Urine Negative (Negative); Leukocyte Esterase,Urine Negative (Negative); Nitrite,Urine Negative (Negative); PH, Urine 6.5 (5.0-8.0); Protein,Urine Negative (Negative); Specific Gravity,Urine 1.005 (1.001-1.035); Urobilinogen,Urine <2.0 mg/dL (<2.0)
[2021-02-09] MEDS ORDERED: HYDROmorphone 1 MG/ML 1 ML SYRINGE IVP STA (00:52)
--- NOTE | 2021-02-09 01:27 | CT ---
EXAM: CT Abdomen and Pelvis With Intravenous Contrast CLINICAL HISTORY: ITS.REASON CT Reason: Left flank pain; hx AAA TECHNIQUE: Axial computed tomography images of the abdomen and pelvis with intravenous contrast. CTDI is 19.3 mGy and DLP is 843.3 mGy-cm. This CT exam was performed using one or more of the following dose reduction techniques: automated exposure control, adjustment of the mA and/or kV according to patient size, and/or use of iterative reconstruction technique. COMPARISON: 10/22/2020 FINDINGS: Lung bases: No mass. No consolidation. ABDOMEN: Liver: Steatosis. Gallbladder and bile ducts: Unremarkable. Pancreas: Unremarkable. Spleen: Unremarkable. Adrenals: Unremarkable. Kidneys and ureters: No hydronephrosis. Mild bilateral pelvocaliectasis. Punctate nonobstructive stones bilaterally. Stomach and bowel: No bowel obstruction. No bowel wall thickening. PELVIS: Appendix: No evidence of appendicitis. Bladder: Unremarkable. Reproductive: Unremarkable. ABDOMEN and PELVIS: Intraperitoneal space: Unremarkable. Bones/joints: No acute fractures. Soft tissues: Small fat-containing umbilical and inguinal hernias. Vasculature: Unchanged 6 cm aortic aneurysm with aortoiliac stent in place. Lymph nodes: No enlarged lymph nodes. IMPRESSION: Unchanged 6 cm aortic aneurysm with aortoiliac stent in place. Punctate nonobstructive stones bilaterally. No hydronephrosis or obstructive nephrolithiasis
--- NOTE | 2021-02-09 02:00 | ED ---
General Adult HPI - General Chief complaint: Back Pain/Injury Stated complaint: Back Pain Time Seen by Provider: 02/08/21 23:44 Source: patient Mode of arrival: ambulatory Limitations: no limitations - History of Present Illness Initial comments: 60-year-old male patient presents to the emergency department today for evaluation of left flank pain. Patient states his been having pain to the area for the last 2 weeks that is worsened today. Patient states he is unable to sleep. States the pain worsens when he lies down. States sometimes it hurts wo rse with movement. States the pain is been intermittent but constant all day today. Does report some nausea denies any vomiting. Denies any pain to the abdomen. Denies any constipation or diarrhea. Denies any hematuria, dysuria, urinary frequency, or urinary urgency. Denies fever or chills. States he did have muscular injury to this area about 6 months ago but it did improve. Does have history of AAA that has been stented. Patient denies any recent rash, cough, shortness of breath, chest pain, back pain, numbness, tingling, dizziness, weakness, headache, visual changes, or any other complaints. - Related Data Home Medications Medication Instructions Recorded Confirmed Divalproex Sodium [Depakote] 500 mg PO TID 06/11/14 08/12/20 metFORMIN HCL [Glucophage] 1,000 mg PO BID 06/11/14 08/12/20 Levothyroxine Sodium [Synthroid] 25 mcg PO DAILY 08/07/19 08/12/20 glipiZIDE [Glucotrol] 5 mg PO DAILY 08/07/19 08/12/20 Lisinopril [Prinivil] 10 mg PO DAILY 08/10/20 08/12/20 Pantoprazole Sodium 40 mg PO DAILY 08/10/20 08/12/20 Allergies Allergy/AdvReac Type Severity Reaction Status Date / Time tetracycline [Tetracycline] Allergy Rash/Hives Verified 02/08/21 23:08 Review of Systems ROS Statement: Those systems with pertinent positive or pertinent negative responses have been documented in the HPI. ROS Other: All systems not noted in ROS Statement are negative. Past Medical History Past Medical History: Cancer, Diabetes Mellitus, Hypertension, Thyroid Disorder Additional Past Medical History / Comment(s): skin cancer,throat cancer, had pancreatitis in summer or 2012, ABD. 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 Vital signs upon presentation are temperature 97.3F, pulse 99, respirations 18, blood pressure 109/78, pulse ox 99% on room air.) Eye exam: Present: normal appearance, PERRL, EOMI. Absent: scleral icterus, conjunctival injection, periorbital swelling ENT exam: Present: normal exam, normal oropharynx, mucous membranes moist Respiratory exam: Present: normal lung sounds bilaterally. Absent: respiratory distress, wheezes, rales, rhonchi, stridor Cardiovascular Exam: Present: regular rate, normal rhythm, normal heart sounds. Absent: systolic murmur, diastolic murmur, rubs, gallop, clicks GI/Abdominal exam: Present: soft, normal bowel sounds. Absent: distended, tenderness, guarding, rebound, rigid Back exam: Present: normal inspection, CVA tenderness (L). Absent: CVA tenderness (R) Neurological exam: Present: alert, oriented X3, CN II-XII intact Psychiatric exam: Present: normal affect, normal mood Skin exam: Present: warm, dry, intact, normal color. Absent: rash Course Vital Signs 02/08/21 02/09/21 23:04 02:29 Temperature 97.3 F L Pulse Rate 99 89 Respiratory 18 16 Rate Blood Pressure 109/78 114/76 O2 Sat by Pulse 99 99 Oximetry Medical Decision Making - Medical Decision Making 60-year-old male patient presents to the emergency department today for evaluation of left flank pain. Physical examination did reveal some tenderness over the left CVA region. No rash. Abdomen soft and nontender. Labs reviewed and are unremarkable. CT abdomen and pelvis with contrast was obtained and redemonstrated 6 cm AAA that has been stented. There is since punctate stones within the kidney but no obstructing stone is identified. No other abno rmalities. Patient was given IV fluids and pain medication. Upon reevaluation is resting comfortably in bed. States pain is still present but better. I did discuss findings and results with him. Discharge to follow-up with his primary care physician for recheck in the morning. Return parameters were discussed in detail. He verbalizes understanding and agrees with this plan. Case discussed with my attending Dr. Wells. - Lab Data Result diagrams: 02/08/21 23:54 02/08/21 23:54 Lab Results 02/08/21 02/08/21 02/08/21 Range/Units 23:54 23:54 23:54 WBC 10.6 (3.8-10.6) k/uL RBC 4.73 (4.30-5.90) m/uL Hgb 15.5 (13.0-17.5) gm/dL Hct 46.2 (39.0-53.0) % MCV 97.7 (80.0-100.0) fL MCH 32.8 (25.0-35.0) pg MCHC 33.6 (31.0-37.0) g/dL RDW 12.9 (11.5-15.5) % Plt Count 297 (150-450) k/uL MPV 7.5 Neutrophils % 57 % Lymphocytes % 30 % Monocytes % 8 % Eosinophils % 3 % Basophils % 0 % Neutrophils # 6.1 (1.3-7.7) k/uL Lymphocytes # 3.2 (1.0-4.8) k/uL Monocytes # 0.8 (0-1.0) k/uL Eosinophils # 0.4 (0-0.7) k/uL Basophils # 0.0 (0-0.2) k/uL Sodium 137 (137-145) mmol/L Potassium 4.6 (3.5-5.1) mmol/L Chloride 102 (98-107) mmol/L Carbon Dioxide 26 (22-30) mmol/L Anion Gap 9 mmol/L BUN 12 (9-20) mg/dL Creatinine 0.83 (0.66-1.25) mg/dL Est GFR (CKD-EPI)AfAm >90 (>60 ml/min/1.73 sqM) Est GFR (CKD-EPI)NonAf >90 (>60 ml/min/1.73 sqM) Glucose 140 H (74-99) mg/dL Plasma Lactic Acid Gopal (0.7-2.0) mmol/L Calcium 9.9 (8.4-10.2) mg/dL Total Bilirubin 0.5 (0.2-1.3) mg/dL AST 25 (17-59) U/L ALT 20 (4-49) U/L Alkaline Phosphatase 85 (38-126) U/L Total Protein 6.9 (6.3-8.2) g/dL Albumin 4.2 (3.5-5.0) g/dL Lipase 181 (23-300) U/L Urine Color Colorless Urine Appearance Clear (Clear) Urine pH 6.5 (5.0-8.0) Ur Specific [place] 1.005 (1.001-1.035) Urine Protein Negative (Negative) Urine Glucose (UA) Trace H (Negative) Urine Ketones Negative (Negative) Urine Blood Negative (Negative) Urine Nitrite Negative (Negative) Urine Bilirubin Negative (Negative) Urine Urobilinogen <2.0 (<2.0) mg/dL Ur Leukocyte Esterase Negative (Negative) 02/08/21 Range/Units 23:54 WBC (3.8-10.6) k/uL RBC (4.30-5.90) m/uL Hgb (13.0-17.5) gm/dL Hct (39.0-53.0) % MCV (80.0-100.0) fL MCH (25.0-35.0) pg MCHC (31.0-37.0) g/dL RDW (11.5-15.5) % Plt Count (150-450) k/uL MPV Neutrophils % % Lymphocytes % % Monocytes % % Eosinophils % % Basophils % % Neutrophils # (1.3-7.7) k/uL Lymphocytes # (1.0-4.8) k/uL Monocytes # (0-1.0) k/uL Eosinophils # (0-0.7) k/uL Basophils # (0-0.2) k/uL Sodium (137-145) mmol/L Potassium (3.5-5.1) mmol/L Chloride (98-107) mmol/L Carbon Dioxide (22-30) mmol/L Anion Gap mmol/L BUN (9-20) mg/dL Creatinine (0.66-1.25) mg/dL Est GFR (CKD-EPI)AfAm (>60 ml/min/1.73 sqM) Est GFR (CKD-EPI)NonAf (>60 ml/min/1.73 sqM) Glucose (74-99) mg/dL Plasma Lactic Acid Gopal 1.7 (0.7-2.0) mmol/L Calcium (8.4-10.2) mg/dL Total Bilirubin (0.2-1.3) mg/dL AST (17-59) U/L ALT (4-49) U/L Alkaline Phosphatase (38-126) U/L Total Protein (6.3-8.2) g/dL Albumin (3.5-5.0) g/dL Lipase (23-300) U/L Urine Color Urine Appearance (Clear) Urine pH (5.0-8.0) Ur Specific [place] (1.001-1.035) Urine Protein (Negative) Urine Glucose (UA) (Negative) Urine Ketones (Negative) Urine Blood (Negative) Urine Nitrite (Negative) Urine Bilirubin (Negative) Urine Urobilinogen (<2.0) mg/dL Ur Leukocyte Esterase (Negative) - Radiology Data Radiology results: report reviewed, image reviewed CT abdomen and pelvis is obtained. Report was reviewed in its entirety. Impression by Dr. Schmidt shows unchanged 6 cm aortic aneurysm with aortoiliac stent in place. Punctate nonobstructive stones bilaterally. No hydronephrosis or obstructive nephrolithiasis. Disposition Clinical Impression: Left flank pain Disposition: HOME SELF-CARE Condition: Good Instructions (If sedation given, give patient instructions): Flank Pain (ED) Additional Instructions: Monitor skin for development of rash. Follow up with your primary care physician for recheck in 1-2 days. Return for any new, worsening, or concerning symptoms. Is patient prescribed a controlled substance at d/c from ED?: No Referrals: Marin Eaton MD [Primary Care Provider] - 1-2 days Time of Disposition: 02:00
[2021-02-09 02:31] VITALS: BP 114/76; PULSE 89; RESP 16
== END 2021-02-09 02:30 | disposition home or self-care (01) ==
LOC: EC 23:03
DX: R10.9 Unspecified abdominal pain (principal); I10 Essential (primary) hypertension; E11.9 Type 2 diabetes mellitus without complications; E07.9 Disorder of thyroid, unspecified; F12.90 Cannabis use, unspecified, uncomplicated; F17.200 Nicotine dependence, unspecified, uncomplicated; Z79.84 Long term (current) use of oral hypoglycemic drugs; Z85.828 Personal history of other malignant neoplasm of skin; Z90.49 Acquired absence of other specified parts of digestive tract
CPT/HCPCS: 99284; 96374; 96376; 96361 ×2; 96375; 36415; 83690; 80053; 83605; 85025; 81003; 74177; J2405; J1170 ×2; Q9967

== ENCOUNTER 2021-02-26 05:08 | Emergency (ER) | payer MEDICARE, BC ==
[2021-02-26 05:17] VITALS: BP 122/71; PULSE 98; RESP 18; TEMP 97.4
--- NOTE | 2021-02-26 06:06 | ED ---
Skin/Abscess/FB HPI - General Chief complaint: Skin/Abscess/Foreign Body Stated complaint: Non-healing wound Time Seen by Provider: 02/26/21 05:17 Source: patient Mode of arrival: ambulatory - History of Present Illness Initial comments: This patient is a 60-year-old man who presents to be evaluated for what he believes is an infected surgical site. Patient states that approximately 2 months ago he had a squamous cell carcinoma resected from his lower lip. He states that the left side of the surgical incision he developed an infection. He states that he is been placed on course of antibiotic and then followed up with the surgeon. He last saw the surgeon about a week ago and he had a new course of antibiotics. When the patient woke today he noticed that the swelling had increased and now some redness. Patient did drain a fair amount of pus from the incision at home. He has not had systemic symptoms. Denies fever or chills. No chest pain, dyspnea, palpitations. MD complaint: abscess/boil -: week(s) Tetanus Up to Date: yes Location: face Severity: mild Quality: dull Consistency: constant Improves with: none Worsens with: none Associated symptoms: denies other symptoms Treatments Prior to Arrival: attempted to drain pus at home, antibiotic - Related Data Home Medications Medication Instructions Recorded Confirmed Divalproex Sodium [Depakote] 500 mg PO TID 06/11/14 08/12/20 metFORMIN HCL [Glucophage] 1,000 mg PO BID 06/11/14 08/12/20 Levothyroxine Sodium [Synthroid] 25 mcg PO DAILY 08/07/19 08/12/20 glipiZIDE [Glucotrol] 5 mg PO DAILY 08/07/19 08/12/20 Lisinopril [Prinivil] 10 mg PO DAILY 08/10/20 08/12/20 Pantoprazole Sodium 40 mg PO DAILY 08/10/20 08/12/20 Allergies Allergy/AdvReac Type Severity Reaction Status Date / Time tetracycline [Tetracycline] Allergy Rash/Hives Verified 02/26/21 05:17 Review of Systems ROS Statement: Those systems with pertinent positive or pertinent negative responses have been documented in the HPI. ROS Other: All systems not noted in ROS Statement are negative. Constitutional: Denies: fever, chills Eyes: Denies: eye pain, eye discharge, vision change ENT: Denies: dental pain, congestion Respiratory: Denies: cough, dyspnea Cardiovascular: Denies: chest pain, palpitations Skin: Reports: as per HPI, other (Lip infection) Neurological: Denies: headache Past Medical History Past Medical History: Cancer, Diabetes Mellitus, Hypertension, Thyroid Disorder Additional Past Medical History / Comment(s): skin cancer,throat cancer, had pancreatitis in summer or 2012, ABD. PAIN WITH NAUSEA History of Any Multi-Drug Resistant Organisms: None Reported Past Surgical History: Appendectomy Additional Past Surgical History / Comment(s): basal cell removed lt shoulder & head, COLONOSCOPY, AAA REPAIR-Squamous cell carcinoma removed form lower lip December 2020 Past Anesthesia/Blood Transfusion Reactions: No Reported Reaction Past Psychological History: Bipolar Smoking Status: Current every day smoker Past Alcohol Use History: None Reported Past Drug Use History: None Reported, Marijuana - Past Family History Mother Family Medical History: No Reported History General Exam General appearance: alert, in no apparent distress Head exam: Present: atraumatic, normocephalic Eye exam: Present: normal appearance Neck exam: Present: full ROM. Absent: lymphadenopathy Skin exam: Present: warm, dry, intact, erythema, other (There is a small amount of erythema adjacent to the healed surgical incision. There is a small ulceration.) Course Vital Signs 02/26/21 05:09 Temperature 97.4 F L Pulse Rate 98 Respiratory 18 Rate Blood Pressure 122/71 O2 Sat by Pulse 99 Oximetry Medical Decision Making - Medical Decision Making With some gentle pressure to the lip, I was able to express a small amount of purulent drainage and some this for culture and sensitivity. The patient is taking Bactrim and clindamycin, and at this point we'll have him continue until he culture and sensitivity results are returned. We discussed appropriate further care and follow-up as well as return parameters. Disposition Clinical Impression: Wound infection Disposition: HOME SELF-CARE Condition: Good Instructions (If sedation given, give patient instructions): Abscess (ED) Is patient prescribed a controlled substance at d/c from ED?: No Referrals: Marin Eaton MD [Primary Care Provider] - 1-2 days
== END 2021-02-26 06:20 | disposition home or self-care (01) ==
LOC: EC 05:08
DX: T81.41XA Infection following a procedure, superficial incisional surgical site, initial encounter (principal); E11.9 Type 2 diabetes mellitus without complications; I10 Essential (primary) hypertension; F17.200 Nicotine dependence, unspecified, uncomplicated; Z79.84 Long term (current) use of oral hypoglycemic drugs; Z85.828 Personal history of other malignant neoplasm of skin; Z88.1 Allergy status to other antibiotic agents
CPT/HCPCS: 87070; 87205; 99283

== ENCOUNTER 2021-09-12 15:29 | Emergency (ER) | payer MEDICARE, BC ==
[2021-09-12 15:36] VITALS: BP 95/67; PULSE 94; RESP 18; TEMP 97.3
[2021-09-12] MEDS ORDERED: ACET/COD 300 MG/30 MG STARTER PACK 6 TAB BTL PO STA (16:22)
--- NOTE | 2021-09-12 16:23 | ED ---
Skin/Abscess/FB HPI - General Chief complaint: Skin/Abscess/Foreign Body Stated complaint: Cyst on lip Time Seen by Provider: 09/12/21 16:04 Source: patient, RN notes reviewed Mode of arrival: ambulatory Limitations: no limitations - History of Present Illness Initial comments: Patient is a 60-year-old male that presents to the emergency department comp laining of a right lower lip bump. He notes he was up and possibly squeezed it and then over the course but today it got larger and tender. Patient notes he does have a history of cysts and he does see a non profit director to have them removed. Patient was otherwise well-appearing. He noted that he does have Bactrim double strength 20 tablets at home. He notes here UTI and was given Bactrim with several refills. Patient took 2 tablets today. Patient notes he did research online and stated that he only took it because the Internet told was okay. Patient denied any other issues or complaints. He denied chest pain shortness of breath headache nausea vomiting diarrhea constipation fever fatigue chills. - Related Data Home Medications Medication Instructions Recorded Confirmed Divalproex Sodium [Depakote] 500 mg PO TID 06/11/14 08/12/20 metFORMIN HCL [Glucophage] 1,000 mg PO BID 06/11/14 08/12/20 Levothyroxine Sodium [Synthroid] 25 mcg PO DAILY 08/07/19 08/12/20 glipiZIDE [Glucotrol] 5 mg PO DAILY 08/07/19 08/12/20 Lisinopril [Prinivil] 10 mg PO DAILY 08/10/20 08/12/20 Pantoprazole Sodium 40 mg PO DAILY 08/10/20 08/12/20 Allergies Allergy/AdvReac Type Severity Reaction Status Date / Time tetracycline [Tetracycline] Allergy Rash/Hives Verified 09/12/21 15:35 Review of Systems ROS Statement: Those systems with pertinent positive or pertinent negative responses have been documented in the HPI. ROS Other: All systems not noted in ROS Statement are negative. Past Medical History Past Medical History: Cancer, Diabetes Mellitus, Hypertension, Thyroid Disorder Additional Past Medical History / Comment(s): skin cancer,throat cancer, had pancreatitis in summer or 2012, ABD. PAIN WITH NAUSEA History of Any Multi-Drug Resistant Organisms: None Reported Past Surgical History: Appendectomy Additional Past Surgical History / Comment(s): basal cell removed lt shoulder & head, COLONOSCOPY, AAA REPAIR-Squamous cell carcinoma removed form lower lip December 2020 Past Anesthesia/Blood Transfusion Reactions: No Reported Reaction Past Psychological History: Bipolar Smoking Status: Current every day smoker Past Alcohol Use History: None Reported Past Drug Use History: None Reported, Marijuana - Past Family History Mother Family Medical History: No Reported History General Exam Limitations: no limitations General appearance: alert, in no apparent distress Head exam: Present: atraumatic, normocephalic, normal inspection Eye exam: Present: normal appearance, PERRL, EOMI. Absent: scleral icterus, conjunctival injection, periorbital swelling ENT exam: Present: normal exam, mucous membranes moist Neck exam: Present: normal inspection Respiratory exam: Present: normal lung sounds bilaterally. Absent: respiratory distress, wheezes, rales, rhonchi, stridor Cardiovascular Exam: Present: regular rate, normal rhythm, normal heart sounds. Absent: systolic murmur, diastolic murmur, rubs, gallop, clicks GI/Abdominal exam: Present: soft, normal bowel sounds. Absent: distended, tenderness, guarding, rebound, rigid Extremities exam: Present: normal inspection, full ROM, normal capillary refill. Absent: tenderness, pedal edema, joint swelling, calf tenderness Neurological exam: Present: alert, oriented X3 Psychiatric exam: Present: normal affect, normal mood Skin exam: Present: warm, dry, intact, normal color, erythema (Right lower lip consistent with a mild cellulitis). Absent: rash Course Vital Signs 09/12/21 15:31 Temperature 97.3 F L Pulse Rate 94 Respiratory 18 Rate Blood Pressure 95/67 O2 Sat by Pulse 97 Oximetry Medical Decision Making - Medical Decision Making 60-year-old male with a right lower lip area of tenderness. Patient notes that there was a pea-sized nodule/bump that he tried squeezing and then got worse. Patient was informed he most likely has a local cellulitis/folliculitis. Per patient's request needle aspiration was attempted only expressing blood. Patient was informed to continue his Bactrim until complete. Case discussed with Dr. Michael, patient can discharge home with follow-up to dermatology and primary care. Disposition Clinical Impression: Cellulitis Disposition: HOME SELF-CARE Condition: Stable Instructions (If sedation given, give patient instructions): Cellulitis (ED) Additional Instructions: Please return to the Emergency Department if symptoms worsen or any other concerns. Follow-up primary care 1-2 days. Follow-up with dermatology as soon as possible. Take one tablet of double strength Bactrim twice a day for 10 days. Can use warm compresses for symptomatically. Take Tylenol Motrin as needed for pain control. Is patient prescribed a controlled substance at d/c from ED?: No Referrals: Marin Eaton MD [Primary Care Provider] - 1-2 days Time of Disposition: 16:22
== END 2021-09-12 16:51 | disposition home or self-care (01) ==
LOC: EC 15:29
DX: K13.0 Diseases of lips (principal); E11.9 Type 2 diabetes mellitus without complications; I10 Essential (primary) hypertension; E07.9 Disorder of thyroid, unspecified; F31.9 Bipolar disorder, unspecified; F17.200 Nicotine dependence, unspecified, uncomplicated; F12.90 Cannabis use, unspecified, uncomplicated; Z79.84 Long term (current) use of oral hypoglycemic drugs; Z88.1 Allergy status to other antibiotic agents; Z85.828 Personal history of other malignant neoplasm of skin; Z90.49 Acquired absence of other specified parts of digestive tract
CPT/HCPCS: 99283

== ENCOUNTER 2021-12-15 15:59 | Emergency (ER) | payer MEDICARE, BC ==
[2021-12-15 16:15] VITALS: BP 89/64; PULSE 56; RESP 18; TEMP 98.1
[2021-12-15] MEDS ORDERED: LIDOCAINE 1% INJ 10MG/ML (20 ML MDV) SQ ONE (17:59)
--- NOTE | 2021-12-15 18:25 | ED ---
General Adult HPI - General Chief complaint: Skin/Abscess/Foreign Body Stated complaint: Boil on chest Time Seen by Provider: 12/15/21 17:14 Source: patient Mode of arrival: ambulatory Limitations: no limitations - History of Present Illness Initial comments: This 61-year-old male percents emergency department with abscess to his anterior chest. Patient states he has a history of multiple abscesses in his past in different locations which he gets lanced and placed on antibiotics and they heal. Patient states he does not want the abscess packed and he states he just wants it to be cut open. Patient states he believes it started as an ingrown hair about 2 weeks ago and over the last 3-5 days if began to become erythematous and fluctuant when he palpates it. He states it does have slight pain. Patient states he saw his primary care provider for this on Monday who placed him on Keflex 10 days, however he states it is not helping the problem and he wants it popped. Patient denies any history of MRSA infections past. He denies any fever. Patient states he is ALLERGIC to Bactrim and ciprofloxacin. Patient denies any chest pain, shortness breath, abdominal pain, nausea, vomiting, change in bowel or bladder, back pain, headache, lightheadedness, dizziness. - Related Data Home Medications Medication Instructions Recorded Confirmed Divalproex Sodium [Depakote] 500 mg PO TID 06/11/14 08/12/20 metFORMIN HCL [Glucophage] 1,000 mg PO BID 06/11/14 08/12/20 Levothyroxine Sodium [Synthroid] 25 mcg PO DAILY 08/07/19 08/12/20 glipiZIDE [Glucotrol] 5 mg PO DAILY 08/07/19 08/12/20 Lisinopril [Prinivil] 10 mg PO DAILY 08/10/20 08/12/20 Pantoprazole Sodium 40 mg PO DAILY 08/10/20 08/12/20 Previous Rx's Medication Instructions Recorded Clindamycin HCl 300 mg PO Q6H #40 cap 12/15/21 Allergies Allergy/AdvReac Type Severity Reaction Status Date / Time tetracycline [Tetracycline] Allergy Rash/Hives Verified 12/15/21 16:12 Review of Systems ROS Statement: Those systems with pertinent positive or pertinent negative responses have been documented in the HPI. ROS Other: All systems not noted in ROS Statement are negative. Past Medical History Past Medical History: Cancer, Diabetes Mellitus, Hypertension, Thyroid Disorder Additional Past Medical History / Comment(s): skin cancer,throat cancer, had pancreatitis in summer or 2012, ABD. PAIN WITH NAUSEA History of Any Multi-Drug Resistant Organisms: None Reported Past Surgical History: Appendectomy Additional Past Surgical History / Comment(s): basal cell removed lt shoulder & head, COLONOSCOPY, AAA REPAIR-Squamous cell carcinoma removed form lower lip December 2020 Past Anesthesia/Blood Transfusion Reactions: No Reported Reaction Past Psychological History: Bipolar Smoking Status: Current every day smoker Past Alcohol Use History: None Reported Past Drug Use History: None Reported, Marijuana - Past Family History Mother Family Medical History: No Reported History General Exam Limitations: no limitations General appearance: alert, in no apparent distress Head exam: Present: atraumatic, normocephalic, normal inspection Eye exam: Present: normal appearance, PERRL, EOMI Pupils: Present: normal accommodation ENT exam: Present: normal exam, mucous membranes moist Neck exam: Present: normal inspection, full ROM. Absent: tenderness, meningismus, lymphadenopathy Respiratory exam: Present: normal lung sounds bilaterally. Absent: respiratory distress, wheezes, rales, rhonchi, stridor Cardiovascular Exam: Present: regular rate, normal rhythm, normal heart sounds. Absent: systolic murmur, diastolic murmur, rubs, gallop, clicks GI/Abdominal exam: Present: soft, normal bowel sounds. Absent: distended, tenderness, guarding, rebound, rigid Extremities exam: Present: normal inspection, full ROM, normal capillary refill. Absent: tenderness, pedal edema, joint swelling, calf tenderness Back exam: Present: full ROM. Absent: CVA tenderness (R), CVA tenderness (L), paraspinal tenderness, vertebral tenderness Neurological exam: Present: alert, oriented X3, CN II-XII intact Psychiatric exam: Present: normal affect, normal mood Skin exam: Present: warm. Absent: intact (Patient with 3 x 3 cm abscess on anterior chest wall in the center of his chest. No warmth to palpation. F luctuant over center of abscess. ) Course Vital Signs 12/15/21 16:12 Temperature 98.1 F Pulse Rate 56 L Respiratory 18 Rate Blood Pressure 89/64 O2 Sat by Pulse 92 L Oximetry Procedures - Incision & Drainage Consent Obtained: verbal consent Site: chest Anesthetic Used: lidocaine 1% I&D Cleaning Method: Alcohol Wipe Scalpel Used: #11 I&D Drainage Obtained: Pus, Blood Packing: Iodoform (Patient did not want any packing placed into the abscess after drinking.) Patient Tolerated Procedure: well, no complications Medical Decision Making - Medical Decision Making This 61-year-old male presents to the emergency department with abscess to anterior surface of mid chest. I&D was performed to 3 x 3 cm abscess. Patient did refuse packing. Pus and blood drained from abscess. Wound culture obtained. Patient is already on Keflex 4 times a day from his primary care provider on Monday. Due to patient having an allergy to Bactrim and ciprofloxacin, patient placed on clindamycin 10 days. Patient instructed to follow up with his primary care provider next 1-2 days. Strict return precautions were discussed. Patient verbally agreed to plan. Patient sent home in stable condition. Case discussed with my attending, . Oxygen was 92% on room air, patient no respiratory distress and states he is a daily smoker since 12 years old and he does have possible COPD, he states he that at baseline and states he is only here to get his abscess drained. Disposition Clinical Impression: Abscess, Encounter for incision and drainage procedure Disposition: HOME SELF-CARE Condition: Stable Instructions (If sedation given, give patient instructions): Abscess (ED), Abscess Incision and Drainage (DC) Additional Instructions: Continue Keflex that you were placed on on Monday for duration of 10 days. Begin clindamycin antibiotic and use as directed. Follow up with your primary care provider in 1 to 2 days. Return to the emergency department with any new, worsening, or concerning symptoms. Prescriptions: Clindamycin HCl 300 mg PO Q6H #40 cap Is patient prescribed a controlled substance at d/c from ED?: No Referrals: Marin Eaton MD [Primary Care Provider] - 1-2 days Time of Disposition: 18:25
== END 2021-12-15 19:04 | disposition home or self-care (01) ==
LOC: EC 15:59
DX: J86.9 Pyothorax without fistula (principal); E11.9 Type 2 diabetes mellitus without complications; I10 Essential (primary) hypertension; E07.9 Disorder of thyroid, unspecified; F31.9 Bipolar disorder, unspecified; F17.200 Nicotine dependence, unspecified, uncomplicated; F12.90 Cannabis use, unspecified, uncomplicated; Z79.84 Long term (current) use of oral hypoglycemic drugs; Z88.1 Allergy status to other antibiotic agents; Z85.828 Personal history of other malignant neoplasm of skin; Z90.49 Acquired absence of other specified parts of digestive tract
CPT/HCPCS: 99283; 10060; 87070; 87205; J2001

== ENCOUNTER 2022-05-04 16:22 | Inpatient (IN) | payer MEDICARE, BC ==
--- NOTE | 2022-05-04 17:25 | ED ---
General Adult HPI - General Chief complaint: Dizziness Stated complaint: Dizzy Time Seen by Provider: 05/04/22 16:45 Source: patient, RN notes reviewed, old records reviewed Mode of arrival: ambulatory Limitations: no limitations - History of Present Illness Initial comments: 61-year-old male presenting with chief complaint of dizziness which is been pr esent throughout the day today. At approximately 10 AM the patient noticed left-sided arm and left sided leg numbness and left face. He denied headache. Denied central chest pain. He has history of abdominal aortic aneurysm, peripheral vascular disease. He states that he's had a low blood pressure and his left arm for at least one year. Patient denies abdominal pain but reports some nausea. No headache. - Related Data Home Medications Medication Instructions Recorded Confirmed Divalproex Sodium [Depakote] 500 mg PO TID 06/11/14 08/12/20 metFORMIN HCL [Glucophage] 1,000 mg PO BID 06/11/14 08/12/20 Levothyroxine Sodium [Synthroid] 25 mcg PO DAILY 08/07/19 08/12/20 glipiZIDE [Glucotrol] 5 mg PO DAILY 08/07/19 08/12/20 Pantoprazole Sodium 40 mg PO DAILY 08/10/20 08/12/20 lisinopriL [Prinivil] 10 mg PO DAILY 08/10/20 08/12/20 Previous Rx's Medication Instructions Recorded clindamycin HCL [Clindamycin HCl] 300 mg PO Q6H #40 cap 12/15/21 Allergies Allergy/AdvReac Type Severity Reaction Status Date / Time tetracycline [Tetracycline] Allergy Rash/Hives Verified 05/04/22 18:48 Review of Systems ROS Statement: Those systems with pertinent positive or pertinent negative responses have been documented in the HPI. ROS Other: All systems not noted in ROS Statement are negative. Past Medical History Past Medical History: Cancer, Diabetes Mellitus, Hypertension, Thyroid Disorder Additional Past Medical History / Comment(s): skin cancer,throat cancer, had pancreatitis in summer or 2012, ABD. PAIN WITH NAUSEA History of Any Multi-Drug Resistant Organisms: None Reported Past Surgical History: Appendectomy Additional Past Surgical History / Comment(s): basal cell removed lt shoulder & head, COLONOSCOPY, AAA REPAIR-Squamous cell carcinoma removed form lower lip December 2020 Past Anesthesia/Blood Transfusion Reactions: No Reported Reaction Past Psychological History: Bipolar Smoking Status: Current every day smoker Past Alcohol Use History: Daily, Heavy Past Drug Use History: Marijuana - Past Family History Mother Family Medical History: No Reported History General Exam Limitations: no limitations General appearance: alert, in no apparent distress Head exam: Present: atraumatic, normocephalic Eye exam: Present: normal appearance, PERRL ENT exam: Present: normal exam Neck exam: Present: normal inspection. Absent: tenderness, meningismus Respiratory exam: Present: normal lung sounds bilaterally. Absent: respiratory distress, wheezes Cardiovascular Exam: Present: regular rate, normal rhythm GI/Abdominal exam: Present: soft. Absent: distended, tenderness, guarding, rebound Extremities exam: Present: normal inspection, other (Bilateral femoral pulses present, 2+. Decreased left radial pulse compared to the right.). Absent: normal capillary refill Neurological exam: Present: alert, oriented X3, CN II-XII intact, motor sensory deficit (NIH 2 left arm and left leg numbness) Psychiatric exam: Present: normal affect, normal mood Skin exam: Present: warm, dry, intact. Absent: cyanosis, diaphoretic Course Vital Signs 05/04/22 16:23 Temperature 97.8 F Pulse Rate 88 Respiratory 16 Rate Blood Pressure 219/102 O2 Sat by Pulse 97 Oximetry - Reevaluation(s) Reevaluation #1: 05/04/22 1700 Current stroke activated onset 10 AM. I discussed case with Dr. Franklin, recommends medical management given the low NIH and onset of symptoms. Not a TPA candidate due to low NIH and onset of 7 hours prior to arrival. Reevaluation #2: 05/04/22 1801 I did discuss the angiography findings with Dr. Carter, recommends Brilinta 90 mg now and 90 mg twice a day as well as aspirin. Reevaluation #3: 05/04/22 18:25 I discussed case with Dr. Douglass regarding the EKG changes and troponin elevation. I reevaluated the patient there is no chest pain. His neurologic exam is unchanged. Given the acute CVA will trend cardiac enzymes and treated with aspirin in Brilinta, no heparin at this time. EKG Findings - EKG Comments: EKG Findings:: EKG: Sinus rhythm with T-wave abnormality in the precordial leads, question ST segment elevation in V3 only. Ventricular rate of 89, WI interval 163, QRS duration 92, QTC 412. Medical Decision Making - Medical Decision Making 61-year-old male presenting with left face, left arm and left leg numbness. He has an NIH of 2. He has no chest pain no headache. No focal weakness. No ataxia. He is hypertensive on the right and normotensive on the left upper extremity. Patient does indicate that this is been an ongoing issue for some time. His legs are warm. He has palpable femoral pulses bilaterally. He is hypertensive upon arrival but does come down without treatment. 170s systolic. The patient has a normal CBC. He has normal CMP with exception of hyponatremia 128. His troponin level is elevated at 0.26. He has EKG changes although his most recent EKG was in 2013. He has a biphasic T-wave with ST segment elevation in V3 alone. He has no active chest pain. I did discuss both the troponin elevation and the EKG changes with Dr. Douglass. The patient has no chest pain. He remains chest pain-free while under my care. I discussed case with the stroke intervention team at the onset and with Dr. Nii rothman for neurology. The patient's neuro exam remains unchanged no focal weakness no ataxia. His cardiac enzymes will be trended. Echo has been ordered. He will be admitted to internal medicine with consults to neurology and cardiology. - Lab Data Result diagrams: 05/04/22 17:21 05/04/22 17:21 Lab Results 05/04/22 05/04/22 05/04/22 Range/Units 17:21 17:21 17:21 WBC 9.0 (3.8-10.6) k/uL RBC 4.56 (4.30-5.90) m/uL Hgb 15.4 (13.0-17.5) gm/dL Hct 45.4 (39.0-53.0) % MCV 99.7 (80.0-100.0) fL MCH 33.8 (25.0-35.0) pg MCHC 33.9 (31.0-37.0) g/dL RDW 11.8 (11.5-15.5) % Plt Count 225 (150-450) k/uL MPV 7.6 Neutrophils % 65 % Lymphocytes % 23 % Monocytes % 8 % Eosinophils % 2 % Basophils % 1 % Neutrophils # 5.8 (1.3-7.7) k/uL Lymphocytes # 2.1 (1.0-4.8) k/uL Monocytes # 0.8 (0-1.0) k/uL Eosinophils # 0.2 (0-0.7) k/uL Basophils # 0.1 (0-0.2) k/uL PT 11.0 (9.0-12.0) sec INR 1.0 (<1.2) APTT 24.7 (22.0-30.0) sec Sodium 128 L (137-145) mmol/L Potassium 4.8 (3.5-5.1) mmol/L Chloride 94 L (98-107) mmol/L Carbon Dioxide 28 (22-30) mmol/L Anion Gap 6 mmol/L BUN 10 (9-20) mg/dL Creatinine 0.83 (0.66-1.25) mg/dL Est GFR (CKD-EPI)AfAm >90 (>60 ml/min/1.73 sqM) Est GFR (CKD-EPI)NonAf >90 (>60 ml/min/1.73 sqM) Glucose 153 H (74-99) mg/dL Calcium 9.1 (8.4-10.2) mg/dL Total Bilirubin 0.8 (0.2-1.3) mg/dL AST 19 (17-59) U/L ALT 14 (4-49) U/L Alkaline Phosphatase 54 (38-126) U/L Troponin I (0.000-0.034) ng/mL Total Protein 6.7 (6.3-8.2) g/dL Albumin 4.0 (3.5-5.0) g/dL 05/04/22 Range/Units 17:21 WBC (3.8-10.6) k/uL RBC (4.30-5.90) m/uL Hgb (13.0-17.5) gm/dL Hct (39.0-53.0) % MCV (80.0-100.0) fL MCH (25.0-35.0) pg MCHC (31.0-37.0) g/dL RDW (11.5-15.5) % Plt Count (150-450) k/uL MPV Neutrophils % % Lymphocytes % % Monocytes % % Eosinophils % % Basophils % % Neutrophils # (1.3-7.7) k/uL Lymphocytes # (1.0-4.8) k/uL Monocytes # (0-1.0) k/uL Eosinophils # (0-0.7) k/uL Basophils # (0-0.2) k/uL PT (9.0-12.0) sec INR (<1.2) APTT (22.0-30.0) sec Sodium (137-145) mmol/L Potassium (3.5-5.1) mmol/L Chloride (98-107) mmol/L Carbon Dioxide (22-30) mmol/L Anion Gap mmol/L BUN (9-20) mg/dL Creatinine (0.66-1.25) mg/dL Est GFR (CKD-EPI)AfAm (>60 ml/min/1.73 sqM) Est GFR (CKD-EPI)NonAf (>60 ml/min/1.73 sqM) Glucose (74-99) mg/dL Calcium (8.4-10.2) mg/dL Total Bilirubin (0.2-1.3) mg/dL AST (17-59) U/L ALT (4-49) U/L Alkaline Phosphatase (38-126) U/L Troponin I 0.264 H* (0.000-0.034) ng/mL Total Protein (6.3-8.2) g/dL Albumin (3.5-5.0) g/dL Critical Care Time Critical Care Time: Yes Total Critical Care Time: 35 Disposition Clinical Impression: CVA (cerebral vascular accident), Troponin level elevated Disposition: ADMITTED IP TO THIS [facility] Condition: Serious Is patient prescribed a controlled substance at d/c from ED?: No Referrals: Marin Eaton MD [Primary Care Provider] - 1-2 days Time of Disposition: 18:51
--- NOTE | 2022-05-04 17:29 | CT ---
EXAMINATION TYPE: CT brain wo con DATE OF EXAM: 05/04/2022 COMPARISON: None HISTORY: cva CT DLP: 1100.2 mGycm Automated exposure control for dose reduction was used. Images of the brain obtained with no contrast. There is a 6 cm area of hypodensity in the right parietal lobe. No mass effect. There is hypodensity in the anterior internal capsule bilaterally consistent with old lacunar infarcts. There is no mass e ffect nor midline shift. No evidence of intracranial hemorrhage. Calvarium is intact. IMPRESSION: Hypodensity right parietal lobe consistent with old cortical infarct. Bilateral internal capsule lacu rico infarcts. No hemorrhage.
[2022-05-04 17:40] LABS: Basophils # (A) 0.1 k/uL (0-0.2); Basophils % (A) 1 %; Eosinophils # (A) 0.2 k/uL (0-0.7); Eosinophils % (A) 2 %; HCT 45.4 % (39.0-53.0); HGB 15.4 gm/dL (13.0-17.5); Lymphocytes # (A) 2.1 k/uL (1.0-4.8); Lymphocytes % (A) 23 %; MCH 33.8 pg (25.0-35.0); MCHC 33.9 g/dL (31.0-37.0); MCV 99.7 fL (80.0-100.0); Mean Platelet Volume 7.6; Monocytes # (A) 0.8 k/uL (0-1.0); Monocytes % (A) 8 %; Neutrophils # (A) 5.8 k/uL (1.3-7.7); Neutrophils % (A) 65 %; Platelet Count 225 k/uL (150-450); RBC 4.56 m/uL (4.30-5.90); RDW 11.8 % (11.5-15.5)
[2022-05-04 17:50] LABS: Partial Thromboplastin Time 24.7 sec (22.0-30.0)
[2022-05-04 17:52] LABS: ALT 14 U/L (4-49); AST 19 U/L (17-59); African American GFR (CKD) >90 (>60 ml/min/1.73 sqM); Alkaline Phosphatase 54 U/L (38-126); Anion Gap 6 mmol/L; Blood Urea Nitrogen 10 mg/dL (9-20); Calcium 9.1 mg/dL (8.4-10.2); Carbon Dioxide 28 mmol/L (22-30); Chloride 94 mmol/L (98-107); Glucose 153 mg/dL (74-99); Non-African American GFR(CKD) >90 (>60 ml/min/1.73 sqM); Potassium 4.8 mmol/L (3.5-5.1); Sodium 128 mmol/L (137-145); Total Bilirubin 0.8 mg/dL (0.2-1.3); Total Protein 6.7 g/dL (6.3-8.2)
--- NOTE | 2022-05-04 17:55 | CT ---
EXAMINATION TYPE: CT angio head neck DATE OF EXAM: 05/04/2022 COMPARISON: None HISTORY: cva CT DLP: 631.8 mGycm Automated exposure control for dose reduction was used. CONTRAST: Performed with IV Contrast, patient injected with 65cc mL of Isovue 370. Images obtained from the aortic arch to the vertex of the brain with IV contrast. There are 3-D post processed images. There is normal branching pattern of the great vessels on the aortic arch. 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 There is arterial flow in the right subclavian artery. There is arterial flow in the common internal and external carotid arteries bilaterally. There is bilateral plaque formation at the carotid artery bifurcations. There is tortuo us origins of the internal carotid arteries bilaterally. There is plaque formation at the carotid art oma bifurcations without evidence of hemodynamic stenosis. There is some kinking of the proximal inte rnal carotid arteries bilaterally and close to 50% luminal narrowing. No carotid dissection. There is arterial flow in both vertebral arteries. There is diminutive left vertebral artery and the basilar artery appears to fill entirely through the right vertebral artery. There is arterial flow in the anterior middle and posterior cerebral arteries bilaterally. No mass ef fect. No evidence of intracranial aneurysm or neovascularity. No evidence of intracranial hemodynamic arterial stenosis. No evidence of intracranial aneurysm or neovascularity. There is significant prun ing of the right middle cerebral artery. There is very little arterial flow demonstrated in the sylvi an fissure on the right side. 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 This c orresponds to the area of infarct in the right cerebral hemisphere. 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 There is distal left subclavian artery co ntrast opacification. Filling of the vessel distally is from uncertain location. No obvious subclavia n steal phenomenon. Left vertebral artery is diminutive. There is some kinking of the proximal internal carotid arteries bilaterally without definite hemodyna dada stenosis.
[2022-05-04] MEDS ORDERED: TICAGRELOR 90 MG TAB PO STA (18:09)
[2022-05-04] MEDS ORDERED: ASPIRIN 325 MG TAB PO STA (18:10)
--- NOTE | 2022-05-04 18:35 | XR ---
EXAMINATION TYPE: XR chest 2V DATE OF EXAM: 05/04/2022 COMPARISON: 06/10/2014 HISTORY: Dizziness TECHNIQUE: 2 view FINDINGS: There is no heart failure nor confluent pneumonic infiltrate. Costophrenic angles are clear . Bony thorax is intact. There are chest leads. IMPRESSION: No active cardiopulmonary disease. No change.
[2022-05-04 20:29] LABS: Glucose,Whole Blood 219 mg/dL (70-110)
[2022-05-04] MEDS ORDERED: ALPRAZolam 0.5 MG TAB PO SCH (21:00)
[2022-05-04] MEDS ORDERED: MELATONIN 5 MG TABLET PO SCH (21:00)
[2022-05-04] MEDS ORDERED: ATORVASTATIN 80 MG TAB PO SCH (21:00)
[2022-05-04] MEDS: DIVALPROEX ER 500 MG TAB.ER.24H PO SCH (21:27)
[2022-05-04] MEDS: metFORMIN 500 MG TAB PO SCH (21:27)
[2022-05-04] MEDS: SODIUM CHLORIDE 0.9% 1,000 ML IV SCH (21:32)
[2022-05-05 06:23] LABS: Glucose,Whole Blood 164 mg/dL (70-110)
[2022-05-05] MEDS ORDERED: LEVOTHYROXINE 25 MCG TAB PO SCH (06:30)
[2022-05-05] MEDS: DIVALPROEX ER 500 MG TAB.ER.24H PO SCH ×2 (08:15→18:21)
[2022-05-05] MEDS: metFORMIN 500 MG TAB PO SCH ×2 (08:16→18:22)
[2022-05-05] MEDS: SODIUM CHLORIDE 0.9% 1,000 ML IV SCH (08:19)
[2022-05-05] MEDS ORDERED: buPROPion XL 300 MG TAB.ER.24H PO SCH (09:00)
[2022-05-05] MEDS ORDERED: lisinopriL 10 MG TAB PO SCH (09:00)
[2022-05-05] MEDS ORDERED: ASPIRIN 81 MG PO SCH (09:00)
[2022-05-05] MEDS ORDERED: ATORVASTATIN 80 MG TAB PO SCH (09:00)
[2022-05-05] MEDS ORDERED: TICAGRELOR 90 MG TAB PO SCH (09:00)
--- NOTE | 2022-05-05 11:06 | US ---
EXAMINATION TYPE: US carotid duplex BILAT DATE OF EXAM: 05/05/2022 COMPARISON: NONE CLINICAL HISTORY: CVA. [place] TECHNIQUE: Carotid duplex ultrasound examination. Indirect Doppler criteria was utilized. FINDINGS: EXAM MEASUREMENTS: RIGHT: Peak Systolic Velocity (PSV) cm/sec ----- Right CCA: 285.6 ----- Right ICA: 274.5 ----- Right ECA: 175.4 ICA/CCA ratio: 1.0 RIGHT: End Diastole cm/sec ----- Right CCA: 26.8 ----- Right ICA: 21.6 ----- Right ECA: 17.9 LEFT: Peak Systolic Velocity (PSV) cm/sec ----- Left CCA: 68.6 ----- Left ICA: 142.9 ----- Left ECA: 133.6 ICA/CCA ratio: 2.1 LEFT: End Diastole cm/sec ----- Left CCA: 14.7 ----- Left ICA: 24 ----- Left ECA: 12.8 VERTEBRALS (direction of flow): Right Vertebral: Antegrade Left Vertebral: Retrograde Rhythm: Normal FOREIGN CLERK NOTES: Elevated velocities right CCA, ICA and ECA. Bilateral plaque. IMPRESSION: 1. Greater than 70% stenosis of the right carotid bifurcation by peak systolic velocity, 2. 50-69% stenosis of the left carotid bifurcation Criteria for Assigning % of Stenosis / Diameter reduction (Estimation based on the indirect measurements of the internal carotid artery velocities (ICA PSV). 1. Normal (no stenosis)=ICA PSV < 125 cm/s: ratio < 2.0: ICA EDV<40 cm/s. 2. Less than 50% stenosis=ICA PSV < 125 cm/s: ratio < 2.0: ICA EDV<40 cm/s. 3. 50 to 69% stenosis=ICA PSV of 125 to 230 cm/s: ration 2.0 ? 4.0: ICA EDV 40-100 cm/s. 4. Greater than 70% stenosis to near occlusion= ICA PSV > 230 cm/s: ratio > 4.0: ICA EDV > 100 cm/s. 5. Near occlusion= ICA PSV velocities may be low or undetectable: variable ratio and ICA EDV. 6. Total occlusion=unable to detect flow.
--- NOTE | 2022-05-05 11:45 | P.CRDCN ---
History of Present Illness History of present illness: 61-year-old male with a past medical history of hypertension, type 2 diabetes, basal cell carcinoma, throat cancer, AAA s/p repair at [facility] by Dr. Cardenas 2 years ago per patient, current every day smoker and alcohol drinking, peripheral vascular disease. He does not follow with a health and safety consultant, did see Dr. Hill in 2019 for pre-op eval in the past. He presenting with chief complaint of dizziness. Yesterday morning patient was mowing his lawn and had acute onset dizziness, he saw "lights flashing". He states he went inside, laid down and symptoms did not improve, presented to the ER for further evaluation. He does also have bilateral lower extremity numbness, tingling and left arm tingling and numbness. He states that the symptoms have been chronic he's been having bilateral lower extremity tingling for about 2 years since his AAA repair. He denies any chest pain, shortness of breath, lightheadedness, dizziness, syncope or near-syncope. He denies any palpitations. He denies any history of coronary artery disease, [place], prior stroke, heart failure. He smokes 1PPD and drinks about 3 beers per day. DIAGNOSTICS * EKG reveals sinus rhythm, heart rate 89, early repolarization in leads V3-V6. No acute ischemia noted. Prior EKG in 2013 with similar findings. * 2D echo in 03/2020, revealed EF 55%, mild mitral regurgitation, mild tricuspid regurgitation, interarterial septum is normal, pericardium is normal. * Telemetry tracings indicate sinus rhythm, no arrhythmia noted * CT brain reported as hypodensity right parietal lobe consistent with old vertical infarct, bilateral internal capsule lacunar infarcts. No hemorrhage * CT angiogram of head and neck reported thrombosis of the right middle cerebral artery and anterior right sylvian fissure. Thrombosis of the proximal left subclavian artery, distal left circumflex coronary artery contrast opacification. No obvious subclavian steal phenomenon. No definitive hemodynamic stenosis of internal carotid arteries. * Chest xray no acute cardiopulmonary process * Laboratory reviewed, CBC unremarkable, troponin 0.26 and 0.34, 0.37, sodium 128, potassium 4.8, BUN 10, serum creatinine 0.8 * Current home cardiac medications include lisinopril 10 mg daily * Lexiscan in 2019, fixed inferior wall defect probably secondary to soft tissue attenuation. No reversible perfusion Defects noted REVIEW OF SYSTEMS At the time of my exam: CONSTITUTIONAL: Denies fever or chills. CARDIOVASCULAR: Denies chest pain, shortness of breath, orthopnea, PND or palpitations. RESPIRATORY: Denies cough. GASTROINTESTINAL: Denies abdominal pain, diarrhea, constipation, nausea or vomiting. MUSCULOSKELETAL: Denies myalgias. NEUROLOGIC: +dizziness Denies numbness, tingling, headacbe or weakness. ENDOCRINE: Denies fatigue, weight change, polydipsia or polyurina. GENITOURINARY: Denies burning, hematuria or urgency with micturation. HEMATOLOGIC: Denies history of anemia or bleeding. PHYSICAL EXAMINATION Blood pressure 173/78, heart rate 90, afebrile, saturations 99% room air CONSTITUTIONAL: No apparent distress. HEENT: Head is normocephalic. Pupils are equal, round. Sclerae anicteric. Mucous membranes of the mouth are moist. No JVD. CHEST EXAMINATION: Lungs are clear to auscultation. No chest wall tenderness is noted on palpation or with deep breathing. HEART EXAMINATION: Regular rate and rhythm. S1, S2 heard. No murmurs, gallops or rub. ABDOMEN: Soft, nontender. Positive bowel sounds. EXTREMITIES: 2+ peripheral pulses, no lower extremity edema and no calf tenderness. NEUROLOGIC EXAMINATION: Patient is awake, alert and oriented x3. 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 Cardenas 2 years ago per patient Current every day smoker Daily alcohol use PLAN 2D echocardiogram and doppler obtained, awaiting read Neurology requesting MAL, Plan for MAL today with Dr. Boyd Continue cardiac telemetry Continue lisinopril I have discussed the risks, benefits and alternative therapies for the above- mentioned procedure and for both sedation/analgesia, as they pertain to this patient. The patient has indicated understanding and acceptance of the risks and procedures discussed. Questions have been answered appropriately and he is agreeable to move forward with the above-stated procedure. Further recommendations based on clinical course Nurse practitioner note has been reviewed by physician. Signing provider agrees with the documented findings, assessment, and plan of care. Past Medical History Past Medical History: Cancer, Diabetes Mellitus, Hypertension, Thyroid Disorder Additional Past Medical History / Comment(s): skin cancer,throat cancer, had pancreatitis in summer or 2012, ABD. PAIN WITH NAUSEA History of Any Multi-Drug Resistant Organisms: None Reported Past Surgical History: Appendectomy Additional Past Surgical History / Comment(s): basal cell removed lt shoulder & head, COLONOSCOPY, AAA REPAIR-Squamous cell carcinoma removed form lower lip December 2020 Past Anesthesia/Blood Transfusion Reactions: No Reported Reaction Past Psychological History: Bipolar Smoking Status: Current every day smoker Past Alcohol Use History: Daily, Heavy Additional Past Alcohol Use History / Comment(s): QUIT SMOKING 2013, STARTED BACK 2017-SMOKING 1 PPD. 3 BEERS NIGHTLY Past Drug Use History: Marijuana Additional Drug Use History / Comment(s): MARIJUANA USE DAILY-INSTRUCTED TO REFRAIN FROM USE FOR AT LEAST 24 HOURS PRIOR TO PROCEDURE - Past Family History Mother Family Medical History: No Reported History Medications and Allergies Home Medications Medication Instructions Recorded Confirmed Type Levothyroxine Sodium [Synthroid] 25 mcg PO DAILY 08/07/19 05/04/22 History glipiZIDE [Glucotrol] 5 mg PO TID PRN 08/07/19 05/04/22 History lisinopriL [Prinivil] 10 mg PO DAILY 08/10/20 05/04/22 History ALPRAZolam [Xanax] 0.5 mg PO HS 05/04/22 05/04/22 History Divalproex ER [Depakote ER] 500 mg PO BID 05/04/22 05/04/22 History Melatonin [Melatonin Dissolving 10 mg PO HS 05/04/22 05/04/22 History Tablet] Nicotine 14Mg/24Hr Patch [Habitrol 1 patch TRANSDERM DAILY PRN 05/04/22 05/04/22 History 14Mg/24Hr Patch] buPROPion XL [Wellbutrin XL] 300 mg PO DAILY 05/04/22 05/04/22 History metFORMIN HCL 1,000 mg PO BID 05/04/22 05/04/22 History Allergies Allergy/AdvReac Type Severity Reaction Status Date / Time tetracycline [Tetracycline] Allergy Rash/Hives Verified 05/04/22 18:48 Physical Exam Vitals: Vital Signs Temp Pulse Pulse Resp BP BP BP 05/05/22 04:15 97.8 F 77 13 70/52 167/79 05/05/22 00:08 97.6 F 84 6 L 150/79 05/04/22 20:36 92/63 05/04/22 20:00 97.4 F L 81 14 179/89 05/04/22 19:48 80 159/84 05/04/22 17:45 88 16 176/93 05/04/22 17:30 85 16 190/100 05/04/22 17:15 90 16 204/92 05/04/22 16:23 97.8 F 88 16 219/102 Pulse Ox 05/05/22 04:15 93 L 05/05/22 00:08 99 05/04/22 20:36 05/04/22 20:00 96 05/04/22 19:48 96 05/04/22 17:45 98 05/04/22 17:30 100 05/04/22 17:15 99 05/04/22 16:23 97 Intake and Output 05/04/22 05/05/22 05/05/22 22:59 06:59 14:59 Output Total 1650 Balance -1650 Output: Urine 1650 Other: Weight 83.915 kg Results 05/04/22 17:21 05/04/22 17:21 Cardiac Enzymes 05/04/22 05/04/22 05/04/22 Range/Units 17:21 17:21 20:04 AST 19 (17-59) U/L Troponin I 0.264 H* 0.340 H* (0.000-0.034) ng/mL 05/05/22 Range/Units 00:07 AST (17-59) U/L Troponin I 0.374 H* (0.000-0.034) ng/mL Coagulation 05/04/22 Range/Units 17:21 PT 11.0 (9.0-12.0) sec APTT 24.7 (22.0-30.0) sec CBC 05/04/22 Range/Units 17:21 WBC 9.0 (3.8-10.6) k/uL RBC 4.56 (4.30-5.90) m/uL Hgb 15.4 (13.0-17.5) gm/dL Hct 45.4 (39.0-53.0) % Plt Count 225 (150-450) k/uL Comprehensive Metabolic Panel 05/04/22 Range/Units 17:21 Sodium 128 L (137-145) mmol/L Potassium 4.8 (3.5-5.1) mmol/L Chloride 94 L (98-107) mmol/L Carbon Dioxide 28 (22-30) mmol/L BUN 10 (9-20) mg/dL Creatinine 0.83 (0.66-1.25) mg/dL Glucose 153 H (74-99) mg/dL Calcium 9.1 (8.4-10.2) mg/dL AST 19 (17-59) U/L ALT 14 (4-49) U/L Alkaline Phosphatase 54 (38-126) U/L Total Protein 6.7 (6.3-8.2) g/dL Albumin 4.0 (3.5-5.0) g/dL Current Medications Generic Name Dose Route Start Last Admin Trade Name Freq PRN Reason Stop Dose Admin Alprazolam 0.5 mg 05/04/22 21:00 05/04/22 21:26 Alprazolam 0.5 Mg Tab PO 0.5 mg HS ARTHUR Administration Aspirin 81 mg 05/05/22 09:00 Aspirin 81 Mg PO DAILY [facility] Atorvastatin Calcium 80 mg 05/05/22 09:00 Atorvastatin 80 Mg Tab PO DAILY ARTHUR Bupropion HCl 300 mg 05/05/22 09:00 Bupropion Xl 300 Mg Tab.Er.24h PO DAILY [facility] Divalproex Sodium 500 mg 05/04/22 21:00 05/04/22 21:27 Divalproex Er 500 Mg Tab.Er.24h PO 500 mg BID ARTHUR Administration Glipizide 5 mg 05/04/22 22:00 Glipizide 5 Mg Tab PO TID PRN HIGH BLOOD SUGAR Sodium Chloride 1,000 mls @ 75 mls/hr 05/04/22 18:45 05/04/22 21:32 Saline 0.9% IV 75 mls/hr .[id number] ARTHUR Administration Levothyroxine Sodium 25 mcg 05/05/22 06:30 05/05/22 06:24 Levothyroxine 25 Mcg Tab PO 25 mcg DAILY@0630 ARTHUR Administration Lisinopril 10 mg 05/05/22 09:00 Lisinopril 10 Mg Tab PO DAILY [facility] Melatonin 10 mg 05/04/22 21:00 05/04/22 21:26 Melatonin 5 Mg Tablet PO 10 mg HS ARTHUR Administration Metformin HCl 1,000 mg 05/04/22 21:00 05/04/22 21:27 Metformin 500 Mg Tab PO 1,000 mg BID ARTHUR Administration Nicotine 1 patch 05/05/22 09:00 Nicotine 14mg/24hr Patch TRANSDERM DAILY PRN Nicotine Cravings Ticagrelor 90 mg 05/05/22 09:00 Ticagrelor 90 Mg Tab PO BID ARTHUR Intake and Output 05/04/22 05/05/22 05/05/22 22:59 06:59 14:59 Output Total 1650 Balance -1650 Output: Urine 1650 Other: Weight 83.915 kg 05/04/22 17:21 05/04/22 17:21
--- NOTE | 2022-05-05 11:52 | P.CNNES ---
History of Present Illness Consult date: 05/05/20 Requesting physician: Kenny Wilson Reason for Consult: CVA History of Present Illness: This is a 61 year-old gentleman with medical history of hypertension, diabetes mellitus, abdominal aortic aneurysm post stent, hypothyroidism, throat cancer s/p radiation therapy about >7 years ago, chronic tobacco user who presented emergency department on 05/04/2022 for left sided numbness and dizziness. Patient stated that yesterday around 10 AM he was more in the line and then felt dizzy and then noticed his left side was numb. He notified the ED team that he was weak in the left arm but he denied any weakness to the left arm for many. He denied of any headache, any difficulty getting his words out, any visual di sturbance. He is on any antiplatelets or at any statin use or any anticoagulation. He stated that he's been smoking for at least 45 years and was smoking 2 packs a day and cut down to one pack and for the past close to 2 weeks has been the evening, and even more down and is on Wellbutrin for that. He stated that he has a difference in blood pressure between the right and left arm for years. He does have history of abdominal aortic aneurysm and had a stent in the past but does not follow up with anybody only follows up with his primary care physician. Patient feels she is been tired fatigue for some time. He denies any history of stroke As a result stroke would was activated. His NIH per ED team was a 2 for left arm and leg numbness. He did not have any focal weakness in the ED team. CT of the head is reported as hypodensity in the right parietal lobe consistent with an old cortical infarct bilateral internal capsule lacunar infarct. No hemorrhage. CT angiography of the head and neck was reported as there is thrombosis of the right middle cerebral artery in the anterior right sylvian pager. This responded to the area of the infarct in the right cerebral hemisphere. 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 There is a distal left subclavian artery contrast opacification. Filling of the vessel distally from the ulcer location. No obvious subclavian steal phenomena. Left vertebral artery is at diminutive. There is some kinking of the proximal internal carotid arteries bilaterally without definite of hemodynamic stenosis. IV TPA since patient is outside the window of more than 4-1/2 hours and he was about 7 hours outside the window and the risk outweighed the benefit. He recommended medical management of Brilinta and ASA. Other lab findings/Work-up finding during this hospital visit: Initial blood pressure is 219/102. His blood pressure over the left arm is 70/52 while the right arm is 167/79. His troponin is 0.264 and it's trending up the sodium is 128 initial serum glucose is 153. PT, PTT and INR is within normal limits I Personally reviewed the CT of the head and I felt the the right parietal was more subacute than the old. I do feel that the patient has old lacunar infarct over the bilateral basal ganglia Review of Systems Review of system: The 12 point system was reviewed and apparent positive and negative per HPI. Past Medical History Past Medical History: Cancer, Diabetes Mellitus, Hypertension, Thyroid Disorder Additional Past Medical History / Comment(s): skin cancer,throat cancer, had pancreatitis in summer or 2012, ABD. PAIN WITH NAUSEA History of Any Multi-Drug Resistant Organisms: None Reported Past Surgical History: Appendectomy Additional Past Surgical History / Comment(s): basal cell removed lt shoulder & head, COLONOSCOPY, AAA REPAIR-Squamous cell carcinoma removed form lower lip December 2020 Past Anesthesia/Blood Transfusion Reactions: No Reported Reaction Past Psychological History: Bipolar Smoking Status: Current every day smoker Past Alcohol Use History: Daily, Heavy Additional Past Alcohol Use History / Comment(s): QUIT SMOKING 2013, STARTED BACK 2017-SMOKING 1 PPD. 3 BEERS NIGHTLY Past Drug Use History: Marijuana Additional Drug Use History / Comment(s): MARIJUANA USE DAILY-INSTRUCTED TO REFRAIN FROM USE FOR AT LEAST 24 HOURS PRIOR TO PROCEDURE - Past Family History Mother Family Medical History: No Reported History Medications and Allergies Home Medications Medication Instructions Recorded Confirmed Type Levothyroxine Sodium [Synthroid] 25 mcg PO DAILY 08/07/19 05/04/22 History glipiZIDE [Glucotrol] 5 mg PO TID PRN 08/07/19 05/04/22 History lisinopriL [Prinivil] 10 mg PO DAILY 08/10/20 05/04/22 History ALPRAZolam [Xanax] 0.5 mg PO HS 05/04/22 05/04/22 History Divalproex ER [Depakote ER] 500 mg PO BID 05/04/22 05/04/22 History Melatonin [Melatonin Dissolving 10 mg PO HS 05/04/22 05/04/22 History Tablet] Nicotine 14Mg/24Hr Patch [Habitrol 1 patch TRANSDERM DAILY PRN 05/04/22 05/04/22 History 14Mg/24Hr Patch] buPROPion XL [Wellbutrin XL] 300 mg PO DAILY 05/04/22 05/04/22 History metFORMIN HCL 1,000 mg PO BID 05/04/22 05/04/22 History Allergies Allergy/AdvReac Type Severity Reaction Status Date / Time tetracycline [Tetracycline] Allergy Rash/Hives Verified 05/04/22 18:48 Physical Examination - Vital Signs Vital Signs: Vital Signs Temp Pulse Pulse Resp BP BP BP 05/05/22 08:29 05/05/22 08:24 97.2 F L 90 17 173/78 05/05/22 04:15 97.8 F 77 13 70/52 167/79 05/05/22 00:08 97.6 F 84 6 L 150/79 05/04/22 20:36 92/63 05/04/22 20:00 97.4 F L 81 14 179/89 05/04/22 19:48 80 159/84 05/04/22 17:45 88 16 176/93 05/04/22 17:30 85 16 190/100 05/04/22 17:15 90 16 204/92 05/04/22 16:23 97.8 F 88 16 219/102 Pulse Ox 05/05/22 08:29 97 05/05/22 08:24 99 05/05/22 04:15 93 L 05/05/22 00:08 99 05/04/22 20:36 05/04/22 20:00 96 05/04/22 19:48 96 05/04/22 17:45 98 05/04/22 17:30 100 05/04/22 17:15 99 05/04/22 16:23 97 Intake and Output 05/04/22 05/05/22 05/05/22 22:59 06:59 14:59 Output Total 1650 Balance -1650 Output: Urine 1650 Other: Weight 83.915 kg GENERAL: The patient is lying in bed and is not in acute distress. CHEST: The heart rate is regular rate rhythm. No murmurs to auscultation. LUNG: Clear to auscultation bilaterally no wheezing noted throughout. Not labored breathing. ABDOMEN/GI: Bowel sounds present in all 4 quadrants. No tenderness to palpation throughout. NEUROLOGICAL: Higher mental function: The patient is awake, alert, oriented to self, place and time. Patient is following commands. No aphasia and no neglect. Cranial nerves: The pupils are round, equal and reactive to light and accommodation. Visual landry are full to confrontation throughout. Extraocular movement is intact no nystagmus is noted. Facial sensation is normal to touch throughout. The facial strength is normal throughout. Hearing is normal bilaterally to hand rub. Tongue is midline and moved [id number] without any difficulty. No dysarthria is noted. Shoulder shrug is normal bilaterally. Motor: Gait is normal. The strength is 5 over 5 throughout. Normal tone and bulk. Cerebellum: Normal finger to nose heel to toscano bilaterally. Sensation: Sensation is normal to touch throughout. Reflexes (right/left): 1+ throughout. Plantars are downgoing bilaterally. Results - Laboratory Findings CBC and BMP: 05/04/22 17:21 05/04/22 17:21 Abnormal Lab Findings: Abnormal Labs 05/04/22 05/04/22 05/04/22 17:21 17:21 20:04 Sodium 128 L Chloride 94 L Glucose 153 H POC Glucose (mg/dL) Troponin I 0.264 H* 0.340 H* 05/04/22 05/05/22 05/05/22 20:27 00:07 06:21 Sodium Chloride Glucose POC Glucose (mg/dL) 219 H 164 H Troponin I 0.374 H* Assessment and Plan Assessment: Acute ischemic stroke (left sided numbness including face and notified ED felt left arm weakness). On initial presentation NIH 2. Currently feels he is back to baseline. No IV tpa since outside window and risk outweigh benefit. On CT head reported as old right parietal but I felt more subacute. Right middle cerebral artery thrombus, proximal left subclavian artery thrombus per CTA History of abdominal aortic aneurysm status post stent many years back Unequal blood pressure between two arms 70/52 while the right arm is 167/79 and stated had this for at least > 1 year Old lacunar strokes due to chronic small vessel disease due to his risk factors Elevated Hypertension and currently elevated likely due to stroke. Elevated troponin Diabetes mellitus Hypothyroidism Chronic ongoing tobacco use Plan: In the ED he received Brilinta 90mg once then was started on Brilinta 90mg 1 tab bid, with ASA 325mg once with ASA 81mg daily per neurointerventionalist. Is started on Lipitor 80mg daily. I ordered MRI the brain. 2-D echo is ordered by ED team and pending report we'll attempt to pursue with also transesophageal echocardiogram. Vascular surgery team is on board in the ordered carotid duplex. Lipid panel is ordered and is pending We'll let vascular team address the difference in blood pressure the right arm versus the left arm to rule out any dissection or any other etiology causing this. PT, OT and [facility] EDGER are consulted Continue neuro checks On cardiac monitoring I ordered TSH, vitamin B12 and folate as well as his hemoglobin A1c because of his generalized weakness. Patient was counseled on tobacco cessation. We'll defer the rest of the medical management to primary team I started the patient on subcu heparin 5000 units every 8 hours for DVT prophylaxis next Plan was discussed with the patient, his son who is at bedside and and his nurse Thank you for the consultation. Leonardo Bales M.D. Neuro-hospitalist Time with Patient: Greater than 30
--- NOTE | 2022-05-05 11:57 | P.GSCN ---
History of Present Illness Consult date: 05/05/22 Reason for Consult: Thrombosis of right cerebral artery and left subclavian artery Requesting physician: Marin Eaton History of present illness: This a pleasant 61-year-old male with multiple medical comorbidities including peripheral arterial disease, abdominal aortic aneurysm status post stenting, hypertension, squamous cell carcinoma, lung cancer, diabetes mellitus, current smoker 45 years, and thyroid disorder who presented to the emergency department wit complaints of left upper and lower extremity numbness and tingling, and left facial numbness and tingling. Patient states he was mowing the lawn he became very dizzy and then he felt that his left upper and lower extremity may be slightly weaker and feeling numbness and tingling. He states he does have chronic lower extremity weakness and pain with ambulation. He states after he rests for 15-30 minutes the pain does improve. He states it's in bilateral calves however worse on the left. he has part of his workup in the emergency department he underwent a CT of the brain as well as a CT angiogram. Concern for CVA, thrombosis of the right middle cerebral artery and thrombosis of the proximal left subclavian artery. Vascular surgery was consulted for the above. Patient currently denies any shortness of breath or chest pain. He denies any visual changes, difficulty with speaking or swallowing. He has been able to ambulate. States that he still has some numbness and tingling in the left upper and lower extremity, no change from yesterday. He denies any recent sick contacts, no fevers, chills. CT brain without contrast reports hypodensity right parietal lobe consistent with old cortical infarct. Bilateral internal capsule lacunar infarcts. No hemorrhage. CT angiogram head and neck reports thrombosis of the right middle cerebral artery and the anterior right sylvian fissure. This corresponds to the area of infarct in the right cerebral hemisphere. Thrombosis of the proximal left subclavian artery. There is distal left subclavian artery contrast opacification. Filling of the vessel distally is from uncertain location. No obvious subclavian steal phenomenon. Left vertebral artery is diminutive. Some kinking of the proximal internal carotid arteries bilaterally without definite hemodynamic stenosis. Chest x-ray no active cardiopulmonary disease. No change Review of Systems A 14 point review systems was completed all pertinent positives and negatives as stated in the HPI. Past Medical History Past Medical History: Cancer, Diabetes Mellitus, Hypertension, Thyroid Disorder Additional Past Medical History / Comment(s): skin cancer,throat cancer, had pancreatitis in summer or 2012, ABD. PAIN WITH NAUSEA History of Any Multi-Drug Resistant Organisms: None Reported Past Surgical History: Appendectomy Additional Past Surgical History / Comment(s): basal cell removed lt shoulder & head, COLONOSCOPY, AAA REPAIR-Squamous cell carcinoma removed form lower lip December 2020 Past Anesthesia/Blood Transfusion Reactions: No Reported Reaction Past Psychological History: Bipolar Smoking Status: Current every day smoker Past Alcohol Use History: Daily, Heavy Additional Past Alcohol Use History / Comment(s): QUIT SMOKING 2013, STARTED BACK 2017-SMOKING 1 PPD. 3 BEERS NIGHTLY Past Drug Use History: Marijuana Additional Drug Use History / Comment(s): MARIJUANA USE DAILY-INSTRUCTED TO REFRAIN FROM USE FOR AT LEAST 24 HOURS PRIOR TO PROCEDURE - Past Family History Mother Family Medical History: No Reported History Medications and Allergies Home Medications Medication Instructions Recorded Confirmed Type Levothyroxine Sodium [Synthroid] 25 mcg PO DAILY 08/07/19 05/04/22 History glipiZIDE [Glucotrol] 5 mg PO TID PRN 08/07/19 05/04/22 History lisinopriL [Prinivil] 10 mg PO DAILY 08/10/20 05/04/22 History ALPRAZolam [Xanax] 0.5 mg PO HS 05/04/22 05/04/22 History Divalproex ER [Depakote ER] 500 mg PO BID 05/04/22 05/04/22 History Melatonin [Melatonin Dissolving 10 mg PO HS 05/04/22 05/04/22 History Tablet] Nicotine 14Mg/24Hr Patch [Habitrol 1 patch TRANSDERM DAILY PRN 05/04/22 05/04/22 History 14Mg/24Hr Patch] buPROPion XL [Wellbutrin XL] 300 mg PO DAILY 05/04/22 05/04/22 History metFORMIN HCL 1,000 mg PO BID 05/04/22 05/04/22 History Allergies Allergy/AdvReac Type Severity Reaction Status Date / Time tetracycline [Tetracycline] Allergy Rash/Hives Verified 05/04/22 18:48 Surgical - Exam Vital Signs Temp Pulse Resp BP Pulse Ox 97.8 F 88 16 219/102 97 05/04/22 16:23 05/04/22 16:23 05/04/22 16:23 05/04/22 16:23 05/04/22 16:23 General appearance: The patient is alert, oriented, appears in no acute distress. HET: Head is normocephalic and atraumatic. Pupils are equal and reactive. Neck: Supple without lymphadenopathy. Trachea midline. No audible carotid bruit. Heart: S1 S2. Regular rate and rhythm. Lungs: Clear to auscultation bilaterally. Abdomen: Soft, nontender, nondistended. Extremities: Normal skin color and turgor. No edema bilateral lower extremities. Palpable femoral pulses bilaterally. Nonpalpable popliteal, posterior tibialis and dorsalis pedis. Palpable +2 right radial pulse, nonpalpable left radial pulse. Patient has full range of motion of bilateral u pper and lower extremities. Neurological: No focal deficits. Patient has facial symmetry, tongue protrudes midline. Speech is fluent. Patient answers questions appropriately. He is alert and oriented 3. Bilateral upper and lower extremity strength and tone intact.. Results - Labs 05/04/22 17:21 05/04/22 17:21 Abnormal Lab Results - Last 24 Hours (Table) 05/04/22 05/04/22 05/04/22 Range/Units 17:21 17:21 20:04 Sodium 128 L (137-145) mmol/L Chloride 94 L (98-107) mmol/L Glucose 153 H (74-99) mg/dL POC Glucose (mg/dL) (70-110) mg/dL Troponin I 0.264 H* 0.340 H* (0.000-0.034) ng/mL 05/04/22 05/05/22 05/05/22 Range/Units 20:27 00:07 06:21 Sodium (137-145) mmol/L Chloride (98-107) mmol/L Glucose (74-99) mg/dL POC Glucose (mg/dL) 219 H 164 H (70-110) mg/dL Troponin I 0.374 H* (0.000-0.034) ng/mL Diabetes panel 05/04/22 Range/Units 17:21 Sodium 128 L (137-145) mmol/L Potassium 4.8 (3.5-5.1) mmol/L Chloride 94 L (98-107) mmol/L Carbon Dioxide 28 (22-30) mmol/L BUN 10 (9-20) mg/dL Creatinine 0.83 (0.66-1.25) mg/dL Glucose 153 H (74-99) mg/dL Calcium 9.1 (8.4-10.2) mg/dL AST 19 (17-59) U/L ALT 14 (4-49) U/L Alkaline Phosphatase 54 (38-126) U/L Total Protein 6.7 (6.3-8.2) g/dL Albumin 4.0 (3.5-5.0) g/dL Calcium panel 05/04/22 Range/Units 17:21 Calcium 9.1 (8.4-10.2) mg/dL Albumin 4.0 (3.5-5.0) g/dL Pituitary panel 05/04/22 Range/Units 17:21 Sodium 128 L (137-145) mmol/L Potassium 4.8 (3.5-5.1) mmol/L Chloride 94 L (98-107) mmol/L Carbon Dioxide 28 (22-30) mmol/L BUN 10 (9-20) mg/dL Creatinine 0.83 (0.66-1.25) mg/dL Glucose 153 H (74-99) mg/dL Calcium 9.1 (8.4-10.2) mg/dL Adrenal panel 05/04/22 Range/Units 17:21 Sodium 128 L (137-145) mmol/L Potassium 4.8 (3.5-5.1) mmol/L Chloride 94 L (98-107) mmol/L Carbon Dioxide 28 (22-30) mmol/L BUN 10 (9-20) mg/dL Creatinine 0.83 (0.66-1.25) mg/dL Glucose 153 H (74-99) mg/dL Calcium 9.1 (8.4-10.2) mg/dL Total Bilirubin 0.8 (0.2-1.3) mg/dL AST 19 (17-59) U/L ALT 14 (4-49) U/L Alkaline Phosphatase 54 (38-126) U/L Total Protein 6.7 (6.3-8.2) g/dL Albumin 4.0 (3.5-5.0) g/dL - Imaging Comments: CT angiogram head and neck reviewed, overall nondiagnostic due to 8 mm cut on imaging. Carotid duplex right ICA PSV to 74.5, ICA/CCA ratio 1.0 left ICA PSV 142.9, ICA/CCA ratio 2.1. Greater than 70% stenosis of the right carotid bifurcation. Peak systolic velocity, 50-69% stenosis of the left carotid bifurcation. Assessment and Plan Assessment: 1. Right ICA stenosis 70%, left 50-69% per carotid duplex 2. Thrombosis of left proximal subclavian artery, no concern for steal syndrome 3. 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 Current tobacco abuse, one pack per day 45 years 6. History of throat cancer 7. History of squamous cell carcinoma 8. Hypertension 9. Peripheral arterial disease 10. History of abdominal aortic aneurysm status post stenting Plan: 1. Recommend aspirin and statin. The patient was started on Brilinta, we'll defer anti-platelet recommendations to neurology. 2. CT angiogram nondiagnostic due to 8 mm cut on imaging 3. Carotid duplex ordered 4. No vascular surgical intervention planned for thrombosed subclavian artery at this time 5. Defer to neurology for recommendations for thrombosed right middle cerebral artery 6. Further recommendations forthcoming based on clinical course Thank you for this consultation, we will continue to follow. The impression and plan of care has been dictated as directed. Dr. Garcia I performed a history and examination of this patient, discussed the same with the dictator. I agree with the dictator's note ,documented as a scribe. Any additional findings or plans will be noted.
[2022-05-05 11:59] LABS: Glucose,Whole Blood 147 mg/dL (70-110)
[2022-05-05] MEDS ORDERED: fentaNYL (PF) 50 MCG/ML 2 ML AMP ONE (13:29)
[2022-05-05] MEDS ORDERED: IV FLUID CONTINUATION 1,000 ML IV ONE (14:10)
[2022-05-05] MEDS ORDERED: BENZOCAINE SPRAY 1 CAN TOPICAL ONE (14:12)
[2022-05-05] MEDS ORDERED: fentaNYL (PF) 50 MCG/ML 2 ML AMP IV ONE (14:18)
[2022-05-05] MEDS ORDERED: MIDAZOLAM 2 MG/2 ML VIAL IV ONE ×2 (14:18→14:22)
[2022-05-05 14:52] LABS: Chol/HDL Ratio 3.91 Ratio; LDL Cholesterol,Calculated 126.2 mg/dL (0.0-131.0)
--- NOTE | 2022-05-05 14:54 | P.PCN ---
Date of Procedure: 05/05/22 Operative Findings: TRANSESOPHAGEAL ECHOCARDIOGRAM FIRE PILOT: VIRGILIO BESS MD, RPVI INDICATION: Rule out cardiac source of embolization. The patient is a 61-year-old gentleman with lower extremities abdominal aortic aneurysm as well as carotid atherosclerosis and also hypertension and dyslipidemia who presented to the hospital with symptoms concerning for embolic stroke. He underwent a computed tomography scan which also was concerning. In the light of that rises she'll echocardiogram was advised. SEDATION: Conscious sedation COMPLICATION: None LEVEL OF SEDATION Moderate with sedation length of 10 minutes PROCEDURE DESCRIPTION: After obtaining an informed consent, the patient was brought to transesophageal echocardiogram room. Pulse oximetry and heart monitors were attached to the patient. The patient throat was sprayed using lidocaine. The patient was turned into left lateral position. After that a bite guard was placed. After an appropriate conscious sedation was initiated, the transesophageal echocardiogram was advanced through a bite guard into the mid esophagus. A 2-D echocardiogram images, color Doppler images, continuous wave images, pulse-wave images, of various cardiac structure were performed. After that the transesophageal echocardiogram probe was advanced into the stomach and fixed to obtain transgastric view was. The probe was brought into the mid esophagus. Inter-atrial septum was interrogated using 2D images, color Doppler images, and then contrast study. After that transesophageal echocardiogram was withdrawn out and upon withdrawing the descending thoracic aorta all the way up to the arch was evaluated. FINDING: The left ventricular dimension and systolic function appeared to be within normal limits. The right ventricle appeared to be within normal limits as well. The left atrium appears to be mildly dilated. The left atrial appendage appeared to be free from any thrombus. The interatrial septum appeared to be intact. The aortic valve is trileaflet valve without stenosis or regurgitation. 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 The mitral valve seems to be mildly prolapsing was mild MR only. There is no tricuspid regurgitation seen. The aorta appears to be mildly dilated. CONCLUSION: 1. 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 The echodensity is a small. The differential diagnosis is also could be degenerative changes 2. Normal mitral valve was only mild physiologic MR 3. Normal tricuspid valve and pulmonic valve 4. Intact interatrial septum was no shunt 5. Normal left atrial abdomen the 6. Normal left ventricular dimension and systolic function
--- NOTE | 2022-05-05 15:13 | CA ---
Transthoracic Echo Report Name: Sumit Yang Age: 61 Gender: M : 1960 Exam Date: 05/05/2022 07:33 Exam Location: [facility] Ht (in): 71 Wt (lb): 185 Ordering Physician: Kenny Wilson MD Attending/Referring Phys: [id number], Katie Research Program Manager Bindu Orr RDCS Procedure CPT: Indications: Thrombus Cardiac Hx: diabetes,htn Technical Quality: Fair Contrast 1: Lumason Total Dose (mL): 1 Contrast 2: Agitated Saline Total Dose (mL): 1 MEASUREMENTS (Male / Female) Normal Values 2D ECHO LV Diastolic Diameter PLAX 3.5 cm 4.2 - 5.9 / 3.9 - 5.3 cm LV Systolic Diameter PLAX 1.4 cm IVS Diastolic Thickness 1.6 cm 0.6 - 1.0 / 0.6 - 0.9 cm LVPW Diastolic Thickness 1.4 cm 0.6 - 1.0 / 0.6 - 0.9 cm LV Relative Wall Thickness 0.9 LA Volume 36.9 cm??? 18 - 58 / 22 - 52 cm??? M-MODE Aortic Root Diameter MM 4.3 cm LA Systolic Diameter MM 3.1 cm LA Ao Ratio MM 0.7 MV E Point Septal Separation 1.4 cm AV Cusp Separation MM 2.3 cm DOPPLER AV Peak Velocity 94.7 cm/s AV Peak Gradient 3.6 mmHg MV Area PHT 5.0 cm??? Mitral E Point Velocity 40.9 cm/s Mitral A Point Velocity 74.8 cm/s Mitral E to A Ratio 0.5 MV Deceleration Time 150.5 ms MV E' Velocity 4.5 cm/s Mitral E to MV E' Ratio 9.1 TR Peak Velocity 103.9 cm/s TR Peak Gradient 4.3 mmHg Right Ventricular Systolic Press 9.0 mmHg FINDINGS Left Ventricle Moderately increased septal wall thickness. Left ventricular ejection fraction is estimated at 50-55_%. Left ventricular cavity size normal. Right Ventricle The right ventricle is normal in size and function. Right Atrium The right atrium is normal in size. Left Atrium The left atrium is normal in size. Mitral Valve Structurally normal mitral valve without significant stenosis or prolapse. There is trace mitral regurgitation. Aortic Valve Structurally normal aortic valve without significant sclerosis or stenosis. There is no aortic regurgitation. Tricuspid Valve Structurally normal tricuspid valve without significant stenosis. Pulmonary artery systolic pressure is normal. Trace tricuspid regurgitation. Pulmonic Valve Structurally normal pulmonic valve without significant stenosis. There is no pulmonic regurgitation. Pericardium Normal pericardium without effusion. Aorta Normal aortic root dimension. CONCLUSIONS Increase LV mass with an ejection fraction of 50-55% with apical hypokinesis Previewed by: Dr. Thor Hoffmann MD (Electronically Signed) Final Date: 05 May 2022 15:12
[2022-05-05] MEDS: HEPARIN SODIUM,PORCINE/PF 5,000 UNIT/0.5 ML SYRINGE SQ SCH (15:36)
[2022-05-05] MEDS: NICOTINE 14MG/24HR PATCH TRANSDERM PRN (16:33)
[2022-05-05 17:05] LABS: Glucose,Whole Blood 214 mg/dL (70-110)
[2022-05-05 18:15] LABS: Glucose,Whole Blood 220 mg/dL (70-110)
[2022-05-05] MEDS: TICAGRELOR 90 MG TAB PO SCH (18:22)
[2022-05-05] MEDS: glipiZIDE 5 MG TAB PO PRN (18:22)
[2022-05-05] MEDS ORDERED: MELATONIN 5 MG TABLET PO SCH (18:30)
[2022-05-05] MEDS ORDERED: ALPRAZolam 0.5 MG TAB PO SCH (18:30)
--- NOTE | 2022-05-05 19:40 | P.HPIM ---
History of Present Illness H&P Date: 05/05/22 Sumit Yang, is a 61-year-old male who presented to [facility] emergency room with a chief complaint of dizziness and numbness involving the left side of his body including the left side of the face and the left upper and lower extremities He was evaluated in the emergency room vital examination on presentation revealed a temperature of 97.8 pulse 88 respirations 16 blood pressure 219 over 1 or 2 pulse ox 97% on room air Laboratory data reveals a white blood count of 9.0 hemoglobin 15.4 platelet count 225 sodium 128 potassium 4.8 chloride 94 CO2 28 BUN 10 creatinine 0.83 troponin level on presentation 0.340 Testing in the emergency room revealed CT angiogram of the head and neck revealed thrombosis of the right middle cerebral artery, and evidence of thrombosis of the proximal left subclavian artery, Patient was admitted to medical floor for further evaluation and treatment, neurology consultation cardiology consultation and vascular surgery consultation requested Past Medical History Past Medical History: Cancer, Diabetes Mellitus, Hypertension, Thyroid Disorder Additional Past Medical History / Comment(s): skin cancer,throat cancer, had pancreatitis in summer or 2012, ABD. PAIN WITH NAUSEA History of Any Multi-Drug Resistant Organisms: None Reported Past Surgical History: Appendectomy Additional Past Surgical History / Comment(s): basal cell removed lt shoulder & head, COLONOSCOPY, AAA REPAIR-Squamous cell carcinoma removed form lower lip December 2020 Past Anesthesia/Blood Transfusion Reactions: No Reported Reaction Past Psychological History: Bipolar Smoking Status: Current every day smoker Past Alcohol Use History: Daily, Heavy Additional Past Alcohol Use History / Comment(s): QUIT SMOKING 2013, STARTED BACK 2017-SMOKING 1 PPD. 3 BEERS NIGHTLY Past Drug Use History: Marijuana Additional Drug Use History / Comment(s): MARIJUANA USE DAILY-INSTRUCTED TO REFRAIN FROM USE FOR AT LEAST 24 HOURS PRIOR TO PROCEDURE - Past Family History Mother Family Medical History: No Reported History Medications and Allergies Home Medications Medication Instructions Recorded Confirmed Type Levothyroxine Sodium [Synthroid] 25 mcg PO DAILY 08/07/19 05/04/22 History glipiZIDE [Glucotrol] 5 mg PO TID PRN 08/07/19 05/04/22 History lisinopriL [Prinivil] 10 mg PO DAILY 08/10/20 05/04/22 History ALPRAZolam [Xanax] 0.5 mg PO HS 05/04/22 05/04/22 History Divalproex ER [Depakote ER] 500 mg PO BID 05/04/22 05/04/22 History Melatonin [Melatonin Dissolving 10 mg PO HS 05/04/22 05/04/22 History Tablet] Nicotine 14Mg/24Hr Patch [Habitrol 1 patch TRANSDERM DAILY PRN 05/04/22 05/04/22 History 14Mg/24Hr Patch] buPROPion XL [Wellbutrin XL] 300 mg PO DAILY 05/04/22 05/04/22 History metFORMIN HCL 1,000 mg PO BID 05/04/22 05/04/22 History Allergies Allergy/AdvReac Type Severity Reaction Status Date / Time tetracycline [Tetracycline] Allergy Rash/Hives Verified 05/04/22 18:48 Physical Exam Vitals: Vital Signs Temp Pulse Pulse Resp BP BP BP 05/05/22 08:29 05/05/22 08:24 97.2 F L 90 17 173/78 05/05/22 04:15 97.8 F 77 13 70/52 167/79 05/05/22 00:08 97.6 F 84 6 L 150/79 05/04/22 20:36 92/63 05/04/22 20:00 97.4 F L 81 14 179/89 05/04/22 19:48 80 159/84 05/04/22 17:45 88 16 176/93 05/04/22 17:30 85 16 190/100 05/04/22 17:15 90 16 204/92 05/04/22 16:23 97.8 F 88 16 219/102 Pulse Ox 05/05/22 08:29 97 05/05/22 08:24 99 05/05/22 04:15 93 L 05/05/22 00:08 99 05/04/22 20:36 05/04/22 20:00 96 05/04/22 19:48 96 05/04/22 17:45 98 05/04/22 17:30 100 05/04/22 17:15 99 05/04/22 16:23 97 Intake and Output 05/04/22 05/05/22 05/05/22 22:59 06:59 14:59 Output Total 1650 Balance -1650 Output: Urine 1650 Other: Weight 83.915 kg In general patient is alert and oriented x 3 in no distress HEENT head normocephalic and atraumatic Neck is supple no JVD no goiter no lymphadenopathy no carotid bruit Chest examination is clear to auscultation no crackles no wheezing Cardiac exam reveals regular heart sounds S1 and S2 no gallops no murmurs Abdomen is soft nontender no organomegaly with normal bowel sounds Extremity exam reveals no edema no cyanosis or clubbing Neurological examination reveals no gross focal deficits patient is alert and oriented 3 cranial nerve II through XII are intact there is no focal motor or sensory deficit that I could appreciate reflexes are 1+ bilaterally and Babinski is negative bilaterally Results CBC & Chem 7: 05/04/22 17:21 05/04/22 17:21 Labs: Abnormal Lab Results - Last 24 Hours (Table) 05/04/22 05/04/22 05/04/22 Range/Units 17:21 17:21 20:04 Sodium 128 L (137-145) mmol/L Chloride 94 L (98-107) mmol/L Glucose 153 H (74-99) mg/dL POC Glucose (mg/dL) (70-110) mg/dL Troponin I 0.264 H* 0.340 H* (0.000-0.034) ng/mL 05/04/22 05/05/22 05/05/22 Range/Units 20:27 00:07 06:21 Sodium (137-145) mmol/L Chloride (98-107) mmol/L Glucose (74-99) mg/dL POC Glucose (mg/dL) 219 H 164 H (70-110) mg/dL Troponin I 0.374 H* (0.000-0.034) ng/mL Thrombosis Risk Factor Assmnt - Choose All That Apply Any of the Below Risk Factors Present?: Yes Each Risk Factor Represents 2 Points: Age 61-74 years Each Risk Factor Represents 5 Points: Stroke (< 1 month) Thrombosis Risk Factor Assessment Total Risk Factor Score: 7 Thrombosis Risk Factor Assessment Level: High Risk Assessment and Plan Plan: Evidence of acute ischemic stroke Episode of dizziness Episodes of numbness involving the left side of the body including the face and the left upper extremity and left lower extremity Evidence of thrombosis of the left proximal subclavian artery Evidence of thrombosis of the right middle cerebral artery Underlying history of abdominal aortic aneurysm Underlying history of hypothyroidism Underlying history of hypertension Underlying history of [id number] diabetes mellitus Underlying history of gastroesophageal reflux disease Underlying history of bipolar disorder Underlying history of squamous cell carcinoma of the lip, with multiple surgical interventions by Dr. Zavala Prolonged history of tobacco use At this time patient is admitted to telemetry floor Neurology consultation cardiology consultation and vascular surgery consultation requested Home medications reviewed and reordered Will follow closely
[2022-05-05 19:55] LABS: Glucose,Whole Blood 163 mg/dL (70-110)
[2022-05-06] MEDS: HEPARIN SODIUM,PORCINE/PF 5,000 UNIT/0.5 ML SYRINGE SQ SCH ×2 (00:09→07:35)
[2022-05-06] MEDS: SODIUM CHLORIDE 0.9% 1,000 ML IV SCH (02:36)
[2022-05-06] MEDS: metFORMIN 500 MG TAB PO SCH (03:02)
[2022-05-06] MEDS: TICAGRELOR 90 MG TAB PO SCH ×2 (03:03→17:15)
[2022-05-06] MEDS: DIVALPROEX ER 500 MG TAB.ER.24H PO SCH (03:03)
[2022-05-06] MEDS ORDERED: ASPIRIN 81 MG PO SCH (04:00)
[2022-05-06] MEDS ORDERED: metFORMIN 500 MG TAB PO SCH (04:00)
[2022-05-06] MEDS ORDERED: TICAGRELOR 90 MG TAB PO SCH (04:00)
[2022-05-06] MEDS ORDERED: DIVALPROEX ER 500 MG TAB.ER.24H PO SCH (04:00)
[2022-05-06] MEDS ORDERED: LEVOTHYROXINE 25 MCG TAB PO SCH (04:00)
[2022-05-06] MEDS ORDERED: buPROPion XL 300 MG TAB.ER.24H PO SCH (04:00)
[2022-05-06] MEDS ORDERED: lisinopriL 10 MG TAB PO SCH (04:00)
[2022-05-06] MEDS ORDERED: ATORVASTATIN 80 MG TAB PO SCH (04:00)
[2022-05-06 05:59] LABS: Glucose,Whole Blood 107 mg/dL (70-110)
[2022-05-06] MEDS: NICOTINE 14MG/24HR PATCH TRANSDERM PRN (07:35)
--- NOTE | 2022-05-06 08:54 | P.PN ---
Subjective Progress Note Date: 05/06/22 Principal diagnosis: Carotid stenosis Patient seen and examined today as a follow-up for carotid stenosis. He states overall he is feeling better. Denies any dizziness or focal deficits. He's been seen by cardiology. 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 The differential diagnosis could also be degenerative changes. Carotid duplex shows right ICA PSV to 74.5, with an inconsistent ICA/CCA ratio. Left ICA PSV 142.9. There is likely greater than 70% stenosis of the right carotid bifurcation, 50-69% stenosis of the left carotid bifurcation. Objective - Vital Signs Vital signs: Vital Signs Temp 98.1 F 05/06/22 03:33 Pulse 88 05/06/22 03:33 Resp 16 05/06/22 03:33 BP 169/85 05/06/22 03:33 Pulse Ox 95 05/06/22 03:33 FiO2 Intake & Output 05/05/22 05/05/22 05/06/22 06:59 18:59 06:59 Intake Total 440 Output Total 1650 300 325 Balance -1650 140 -325 Weight 83.915 kg Intake: IV 200 Oral 240 Output: Urine 1650 300 325 - Exam General appearance: The patient is alert, oriented, appears in no acute distress. HET: Head is normocephalic and atraumatic. Pupils are equal and reactive. Neck: Supple without lymphadenopathy. Trachea midline. No audible carotid bruit. Extremities: Normal skin color and turgor. No edema bilateral lower extremities. Palpable femoral pulses bilaterally. Nonpalpable popliteal, posterior tibialis and dorsalis pedis. Palpable +2 right radial pulse, nonpalpable left radial pulse. Patient has full range of motion of bilateral upper and lower extremities. Neurological: No focal deficits. Patient has facial symmetry, tongue protrudes midline. Speech is fluent. Patient answers questions appropriately. He is alert and oriented 3. Bilateral upper and lower extremity strength and tone intact.. - Labs CBC & Chem 7: 05/04/22 17:21 05/04/22 17:21 Labs: Abnormal Lab Results - Last 24 Hours (Table) 05/05/22 05/05/22 05/05/22 Range/Units 09:00 09:00 11:58 POC Glucose (mg/dL) 147 H (70-110) mg/dL Hemoglobin A1c 6.9 H (0.0-6.0) % Cholesterol 205.00 H (0.00-200.00) mg/dL 05/05/22 05/05/22 05/05/22 Range/Units 17:03 18:14 19:54 POC Glucose (mg/dL) 214 H 220 H 163 H (70-110) mg/dL Hemoglobin A1c (0.0-6.0) % Cholesterol (0.00-200.00) mg/dL Assessment and Plan Assessment: 1. Right ICA stenosis 70%, left 50-69% per carotid duplex 2. Thrombosis of left proximal subclavian artery, no concern for steal syndrome 3. 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 Current tobacco abuse, one pack per day 45 years 6. History of throat cancer 7. History of squamous cell carcinoma 8. Hypertension 9. Peripheral arterial disease 10. History of abdominal aortic aneurysm status post stenting Plan: 1. Recommend aspirin and statin. Continue Brilinta. 2. CT angiogram nondiagnostic due to 8 mm cut on imaging 3. Carotid duplex ordered and reviewed 4. No vascular surgical intervention planned for thrombosed subclavian artery at this time 5. Defer to neurology for recommendations for thrombosed right middle cerebral artery 6. Recommend outpatient right carotid endarterectomy within the next 1-2 weeks. This was discussed with neurology. Will need medical and cardiac clearance. Thank you for this consultation, patient is cleared from a vascular surgical standpoint for discharge. Follow-up within one week. The impression and plan of care has been dictated as directed. Dr. Garcia I performed a history and examination of this patient, discussed the same with the dictator. I agree with the dictator's note ,documented as a scribe. Any additional findings or plans will be noted.
[2022-05-06 11:55] LABS: Basophils % (A) 1 %; Eosinophils # (A) 0.1 k/uL (0-0.7); Eosinophils % (A) 2 %; HCT 48.1 % (39.0-53.0); HGB 15.7 gm/dL (13.0-17.5); Lymphocytes # (A) 2.2 k/uL (1.0-4.8); Lymphocytes % (A) 30 %; MCH 33.1 pg (25.0-35.0); MCHC 32.6 g/dL (31.0-37.0); MCV 101.7 fL (80.0-100.0); Mean Platelet Volume 7.7; Monocytes # (A) 0.5 k/uL (0-1.0); Monocytes % (A) 7 %; Neutrophils # (A) 4.3 k/uL (1.3-7.7); Neutrophils % (A) 59 %; Platelet Count 305 k/uL (150-450); RBC 4.73 m/uL (4.30-5.90); RDW 11.9 % (11.5-15.5); WBC 7.3 k/uL (3.8-10.6)
[2022-05-06 12:05] LABS: Glucose,Whole Blood 166 mg/dL (70-110)
[2022-05-06 12:41] LABS: ALT 17 U/L (4-49); AST 21 U/L (17-59); African American GFR (CKD) >90 (>60 ml/min/1.73 sqM); Albumin 4.4 g/dL (3.5-5.0); Alkaline Phosphatase 57 U/L (38-126); Anion Gap 10 mmol/L; Blood Urea Nitrogen 11 mg/dL (9-20); Calcium 8.9 mg/dL (8.4-10.2); Carbon Dioxide 22 mmol/L (22-30); Chloride 100 mmol/L (98-107); Glucose 171 mg/dL (74-99); Non-African American GFR(CKD) 85 (>60 ml/min/1.73 sqM); Potassium 4.8 mmol/L (3.5-5.1); Sodium 132 mmol/L (137-145); Total Bilirubin 1.5 mg/dL (0.2-1.3); Total Protein 7.1 g/dL (6.3-8.2)
[2022-05-06] MEDS: glipiZIDE 5 MG TAB PO PRN (12:52)
[2022-05-06 14:16] VITALS: TEMP 97.8
--- NOTE | 2022-05-06 14:58 | MR ---
EXAMINATION TYPE: MR brain wo con DATE OF EXAM: 05/06/2022 COMPARISON: CT brain from 2 days ago HISTORY: Mid back pain, left side lower t-spine radiculopathy. CVA on admission 2 days earlier. TECHNIQUE: Multiplanar, multisequence imaging of the brain and brainstem is performed without IV cont rast. FINDINGS: Diffusion weighted images demonstrate area of increased linear signal diffusion weighted images with diminished signal on ADC mapping involving the right aspect of the hue series 303 image 80 and serie s 305 image 76 where there is T2 hyperintense signal axial image 11 could reflect evolving acute infa rct measuring 10 x 3 mm. There is ventricular and sulcal prominence redemonstrated. Scattered focal and confluent areas of T2 hyperintensity throughout the deep and periventricular white matter including involvement in the hue are present. There is old infarct right parietal bowel posterior watershed distribution redemonstrat ed. Smaller old lacunar infarcts in the bilateral internal capsules again seen. Also old infarct infe rior right cerebellum redemonstrated. Midline structures demonstrate normal morphology. The craniocervical junction appears within normal limits. Normal vascular flow voids are present. The visualized sinuses are clear and the globes are i ntact. Increased fluid signal right mastoid air cells on MRI. IMPRESSION: 1. Suspect evolving acute linear infarct right aspect of the hue measuring 10 x 3 mm. 2. Background mild diffuse cerebral atrophy with moderate to advanced chronic small vessel ischemic c hange along with multiple old infarcts is redemonstrated. 3. There is new increased fluid signal right mastoid air cells raises concern for developing mastoidi tis, correlate clinically.
--- NOTE | 2022-05-06 15:03 | P.PN ---
Subjective 61-year-old male with a past medical history of hypertension, type 2 diabetes, basal cell carcinoma, throat cancer, AAA s/p repair at [facility] by Dr. Cardenas 2 years ago per patient, current every day smoker and alcohol drinking, peripheral vascular disease. He does not follow with a bull driver, did see Dr. Hill in 2019 for pre-op eval in the past. He presenting with chief complaint of dizziness. Yesterday morning patient was mowing his lawn and had acute onset dizziness, he saw "lights flashing". He states he went inside, laid down and symptoms did not improve, presented to the ER for further evaluation. He does also have bilateral lower extremity numbness, tingling and left arm tingling and numbness. He states that the symptoms have been chronic he's been having bilateral lower extremity tingling for about 2 years since his AAA repair. He denies any chest pain, shortness of breath, lightheadedness, dizziness, syncope or near-syncope. He denies any palpitations. He denies any history of coronary artery disease, PR, prior stroke, heart failure. He smokes 1PPD and drinks about 3 beers per day. DIAGNOSTICS * EKG reveals sinus rhythm, heart rate 89, early repolarization in leads V3-V6. No acute ischemia noted. Prior EKG in 2013 with similar findings. * 2D echo in 03/2020, revealed EF 55%, mild mitral regurgitation, mild tricuspid regurgitation, interarterial septum is normal, pericardium is normal. * Telemetry tracings indicate sinus rhythm, no arrhythmia noted * CT brain reported as hypodensity right parietal lobe consistent with old vertical infarct, bilateral internal capsule lacunar infarcts. No hemorrhage * CT angiogram of head and neck reported thrombosis of the right middle cerebral artery and anterior right sylvian fissure. Thrombosis of the proximal left subclavian artery, distal left circumflex coronary artery contrast opacification. No obvious subclavian steal phenomenon. No definitive hemodynamic stenosis of internal carotid arteries. * Chest xray no acute cardiopulmonary process * Laboratory reviewed, CBC unremarkable, troponin 0.26 and 0.34, 0.37, sodium 128, potassium 4.8, BUN 10, serum creatinine 0.8 * Current home cardiac medications include lisinopril 10 mg daily * Lexiscan in 2019, fixed inferior wall defect probably secondary to soft tissue attenuation. No reversible perfusion Defects noted 05/05 MAL Report 1. 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 The echodensity is a small. The differential diagnosis is also could be degenerative changes 2. Normal mitral valve was only mild physiologic MR 3. Normal tricuspid valve and pulmonic valve 4. Intact interatrial septum was no shunt 5. Normal left atrial abdomen the 6. Normal left ventricular dimension and systolic function 05/06/2022 Patient seen and examined at bedside, no acute distress. He denies chest pain or shortness of breath. No signs of heart failure. He is euvolemic on exam. Vital signs are stable. PHYSICAL EXAMINATION Vitals reviewed CONSTITUTIONAL: No apparent distress. HEENT: Head is normocephalic. Pupils are equal, round. Sclerae anicteric. Mucous membranes of the mouth are moist. No JVD. CHEST EXAMINATION: Lungs are clear to auscultation. No chest wall tenderness is noted on palpation or with deep breathing. HEART EXAMINATION: Regular rate and rhythm. S1, S2 heard. No murmurs, gallops or rub. ABDOMEN: Soft, nontender. Positive bowel sounds. EXTREMITIES: 2+ peripheral pulses, no lower extremity edema and no calf tenderness. NEUROLOGIC EXAMINATION: Patient is awake, alert and oriented x3. 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 Cardenas 2 years ago per patient Current every day smoker Daily alcohol use PLAN From cardiology perspective, no further inpatient workup is indicated at this time. Vascular recommended right carotid endarterectomy within the next 12 weeks. From a cardiology perspective, this is an intermediate surgery. Patient has no acute cardiac conditions at this time. Patient is euvolemic on exam, no chest pain, no source of breath. Patient is able to perform >4 METs levels of acti vity. There are no absolute contraindications to undergo surgery at this time. Continue aspirin and statin, Brilinta, lisinopril. No further changes at this time. Patient is stable. Recommend close follow-up as an outpatient. Nurse practitioner note has been reviewed by physician. Signing provider agrees with the documented findings, assessment, and plan of care. Objective - Vital Signs Vital signs: Vital Signs Temp 97.8 F 05/06/22 12:17 Pulse 96 05/06/22 12:17 Resp 18 05/06/22 12:17 BP 188/97 05/06/22 12:17 Pulse Ox 99 05/06/22 12:17 FiO2 Intake & Output 05/05/22 05/06/22 05/06/22 18:59 06:59 18:59 Intake Total 440 Output Total 300 325 Balance 140 -325 Intake: IV 200 Oral 240 Output: Urine 300 325 Other: # Voids 3 - Labs CBC & Chem 7: 05/06/22 11:16 05/06/22 11:16 Labs: Abnormal Lab Results - Last 24 Hours (Table) 05/05/22 05/05/22 05/05/22 Range/Units 09:00 17:03 18:14 MCV (80.0-100.0) fL Sodium (137-145) mmol/L Glucose (74-99) mg/dL POC Glucose (mg/dL) 214 H 220 H (70-110) mg/dL Hemoglobin A1c 6.9 H (0.0-6.0) % Total Bilirubin (0.2-1.3) mg/dL 05/05/22 05/06/22 05/06/22 Range/Units 19:54 11:16 11:16 MCV 101.7 H (80.0-100.0) fL Sodium 132 L (137-145) mmol/L Glucose 171 H (74-99) mg/dL POC Glucose (mg/dL) 163 H (70-110) mg/dL Hemoglobin A1c (0.0-6.0) % Total Bilirubin 1.5 H (0.2-1.3) mg/dL 05/06/22 Range/Units 12:04 MCV (80.0-100.0) fL Sodium (137-145) mmol/L Glucose (74-99) mg/dL POC Glucose (mg/dL) 166 H (70-110) mg/dL Hemoglobin A1c (0.0-6.0) % Total Bilirubin (0.2-1.3) mg/dL
--- NOTE | 2022-05-06 15:06 | P.PN ---
Subjective Progress Note Date: 05/06/22 The patient is seen at bedside and feels doing better today. He continues to have numbness on left side but otherwise no new neurological deficits. Objective - Vital Signs Vital signs: Vital Signs Temp 97.8 F 05/06/22 12:17 Pulse 96 05/06/22 12:17 Resp 18 05/06/22 12:17 BP 188/97 05/06/22 12:17 Pulse Ox 99 05/06/22 12:17 FiO2 Intake & Output 05/05/22 05/06/22 05/06/22 18:59 06:59 18:59 Intake Total 440 Output Total 300 325 Balance 140 -325 Intake: IV 200 Oral 240 Output: Urine 300 325 - Exam GENERAL: The patient is sitting at side of bed and is not in acute distress. NEUROLOGICAL: Higher mental function: The patient is awake, alert, oriented to self, place and time. Patient is following commands. No aphasia and no neglect. Cranial nerves: The pupils are round, equal and reactive to light and acc ommodation. Visual landry are full to confrontation throughout. Extraocular movement is intact no nystagmus is noted. Facial sensation is normal to touch throughout. The facial strength is normal throughout. Hearing is normal bilaterally to hand rub. Tongue is midline and moved [id number] without any difficulty. No dysarthria is noted. Shoulder shrug is normal bilaterally. Motor: Gait is normal. Gait is normal. The strength is 5 over 5 throughout. Normal tone and bulk. Cerebellum: Normal finger to nose heel to toscano bilaterally. Sensation: Sensation is normal to touch throughout but subjectively feel numbness on the left side in patchy distribution on feet, hand. Reflexes (right/left): 1+ throughout. Plantars are downgoing bilaterally. SOME OF THE WORK-UP DURING THIS HOSPITAL VISIT CONSISTED OF: Lipid panel is triglyceride 132, cholesterol 205, LDLs 126 and HDL of 52 Hemoglobin A1c is 6.9 Vitamin B12 is 5/70 Folate is 11.[address] of the head is reported as hypodensity in the right parietal lobe consistent with an old cortical infarct bilateral internal capsule lacunar infarct. No hemorrhage. CT angiography of the head and neck was reported as there is thrombosis of the right middle cerebral artery in the anterior right sylvian pager. This r esponded to the area of the infarct in the right cerebral hemisphere. 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 There is a distal left subclavian artery contrast opacification. Filling of the vessel distally from the ulcer location. No obvious subclavian steal phenomena. Left vertebral artery is at diminutive. There is some kinking of the proximal internal carotid arteries bilaterally without definite of hemodynamic stenosis. PT, PTT and INR is within normal limits The echo was reported as increased left ventricle mass with ejection fraction of 50-55% with apical hypokinesis. 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 The echodensity is a small. Differential diagnosis also could be degenerative changes. Intact intra- arterial septum with no shunt. Normal left ventricular dye mentioned and systolic function. Carotid Duplex was reported as greater than 70% stenosis of the right carotid the bifurcation by peak systolic velocity. 50-69% stenosis of the left carotid bifurcation - Labs CBC & Chem 7: 05/06/22 11:16 05/06/22 11:16 Labs: Abnormal Lab Results - Last 24 Hours (Table) 05/05/22 05/05/22 05/05/22 Range/Units 09:00 09:00 17:03 MCV (80.0-100.0) fL Sodium (137-145) mmol/L Glucose (74-99) mg/dL POC Glucose (mg/dL) 214 H (70-110) mg/dL Hemoglobin A1c 6.9 H (0.0-6.0) % Total Bilirubin (0.2-1.3) mg/dL Cholesterol 205.00 H (0.00-200.00) mg/dL 05/05/22 05/05/22 05/06/22 Range/Units 18:14 19:54 11:16 MCV 101.7 H (80.0-100.0) fL Sodium (137-145) mmol/L Glucose (74-99) mg/dL POC Glucose (mg/dL) 220 H 163 H (70-110) mg/dL Hemoglobin A1c (0.0-6.0) % Total Bilirubin (0.2-1.3) mg/dL Cholesterol (0.00-200.00) mg/dL 05/06/22 05/06/22 Range/Units 11:16 12:04 MCV (80.0-100.0) fL Sodium 132 L (137-145) mmol/L Glucose 171 H (74-99) mg/dL POC Glucose (mg/dL) 166 H (70-110) mg/dL Hemoglobin A1c (0.0-6.0) % Total Bilirubin 1.5 H (0.2-1.3) mg/dL Cholesterol (0.00-200.00) mg/dL Assessment and Plan Assessment: Acute ischemic stroke (left sided numbness including face and notified ED felt left arm weakness). On initial presentation NIH 2. Currently feels he continues to have numbness on left side. No IV tpa since outside window and risk outweigh benefit. On CT head reported as old right parietal but I felt more subacute. Right middle cerebral artery thrombus, proximal left subclavian artery thrombus per CTA Right ICA >70% stenosis which is symptomatic per carotid dupllex History of abdominal aortic aneurysm status post stent many years back Unequal blood pressure between two arms 70/52 while the right arm is 167/79 and stated had this for at least > 1 year Old lacunar strokes due to chronic small vessel disease due to his risk factors Elevated Hypertension and currently elevated likely due to stroke. Elevated troponin Diabetes mellitus Hypothyroidism Chronic ongoing tobacco use Plan: Continue Brilinta 90mg 1 tab bid and ASA 81mg daily (both new) per neurointerventionalist. This is sufficient for stroke prophylaxis and carotid stenosis. Will have him continue dual antiplatlets and have him follow-up with neurologit and vascular for modification of medication of medication. Continue Lipitor 80mg daily for secondary stroke prophylaxis and it was felt patient has peripheral arterial disease. Pending MRI the brain. Vascular surgery team is on board. For his symptomatic right ICA stenosis, recommend intervention within 1-2 weeks. We'll let vascular team address the difference in blood pressure the right arm versus the left arm to rule out any dissection or any other etiology causing this. PT, OT and [employer] are consulted Continue neuro checks On cardiac monitoring MAL reported as echodensity attached to the aortic side of the noncoronary cusp of the aortic valve concerning for fibroadenoma. The echodensity is a small. Differential diagnosis also could be degenerative changes. Intact intra- arterial septum with no shunt. Normal left ventricular dye mentioned and systolic function. I spoke with spanish tutor and he stated they will observe. Patient was counseled on tobacco cessation. We'll defer the rest of the medical management to primary team On subcu heparin 5000 units every 8 hours for DVT prophylaxis Upon discharge the patient to follow-up with neurologist as outpatient within 1- 2 weeks. Plan was discussed with the patient, his son who is at bedside and and his nurse UPDATE: MRI Brain is reported suspected evolving acute linear infarct in the right hospital hue measuring 10 x 3 mm. Background mild diffuse cerebral atrophy with moderate to advanced chronic small vessel ischemic changes along the multiple old infarct is reviewed demonstrated. I personally reviewed the MRI and I do agree the patient has an acute infarct over the right hue. I feel the patient's stroke is likely due to his all multiple risk factor of his diabetes, hypertension, peripheral arterial disease, tobacco use, history of old strokes. From a neurology perspective patient is cleared for discharge. Leonardo Bales M.D. Neuro-hospitalist Time with Patient: Less than 30
--- NOTE | 2022-05-06 16:39 | P.DS ---
Providers Date of admission: 05/04/22 18:38 Expected date of discharge: 05/06/22 Attending physician: Marin Eaton Consults: 05/04/22 18:36 Consult Physician Routine Consulting Provider: Leonardo Bales Consult Reason/Comments: CVA Do you want consulting provider notified?: Already Contacted Consult Physician Urgent Consulting Provider: Katrina Douglass Consult Reason/Comments: trop elevated Do you want consulting provider notified?: Already Contacted 05/04/22 20:52 Consult Physician Routine Consulting Provider: Alfa Lane Consult Reason/Comments: thrombosis of R cerebral artery and L subclavian artery Do you want consulting provider notified?: Yes, Notify in am Primary care physician: Marin Angelito [facility] Course: Diagnosis on discharge: Evidence of acute ischemic stroke Episode of dizziness Episodes of numbness involving the left side of the body including the face and the left upper extremity and left lower extremity 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 Zavala Prolonged history of tobacco use Hospital course: Sumit Yang, is a 61-year-old male who presented to [facility] emergency room with a chief complaint of dizziness and numbness involving the left side of his body including the left side of the face and the left upper and lower extremities He was evaluated in the emergency room vital examination on presentation revealed a temperature of 97.8 pulse 88 respirations 16 blood pressure 219 over 1 or 2 pulse ox 97% on room air Laboratory data reveals a white blood count of 9.0 hemoglobin 15.4 platelet count 225 sodium 128 potassium 4.8 chloride 94 CO2 28 BUN 10 creatinine 0.83 troponin level on presentation 0.340 Testing in the emergency room revealed CT angiogram of the head and neck revealed thrombosis of the right middle cerebral artery, and evidence of thrombosis of the proximal left subclavian artery, Patient was admitted to medical floor for further evaluation and treatment, neurology consultation cardiology consultation and vascular surgery consultation requested on 05/06/2022 patient was seen and examined on the telemetry floor, he is alert and oriented x 3 in no distress, he is feeling better and denies any symptoms at this time, MRI revealed evidence of stroke, he was evaluated by neurology and was cleared for discharge, baby aspirin, Brilinta and atorvastatin were added to his medication regimen, he was evaluated by cardiology and was cleared for discharge and also cleared for surgery for carotid endarterectomy in the next 2 weeks. Patient will follow with me in the office within one week, he will also follow with vascular surgery in one week. Patient was counseled in length during this admission in regard to smoking cessation. MRI revealed evidence of acute mastoiditis, he was given a course of Ceftin 500 mg twice daily for 10 days at the time of discharge. Patient Condition at Discharge: Serious Plan - Discharge Summary Discharge Rx Participant: No New Discharge Prescriptions: New Ticagrelor [Brilinta] 90 mg PO 1800,0400 tab cefUROXime axetiL [Cefuroxime] 500 mg PO BID 10 Days #20 tab Aspirin 81 mg PO 0400 tab Atorvastatin [Lipitor] 80 mg PO 0400 tab Continue glipiZIDE [Glucotrol] 5 mg PO TID PRN PRN Reason: HIGH BLOOD SUGAR Levothyroxine Sodium [Synthroid] 25 mcg PO DAILY lisinopriL [Prinivil] 10 mg PO DAILY Divalproex ER [Depakote ER] 500 mg PO BID buPROPion XL [Wellbutrin XL] 300 mg PO DAILY ALPRAZolam [Xanax] 0.5 mg PO HS metFORMIN HCL 1,000 mg PO BID Nicotine 14Mg/24Hr Patch [Habitrol] 1 patch TRANSDERM DAILY PRN PRN Reason: Nicotine Cravings Melatonin [Melatonin Dissolving Tablet] 10 mg PO HS Discharge Medication List Levothyroxine Sodium [Synthroid] 25 mcg PO DAILY 08/07/19 [History] glipiZIDE [Glucotrol] 5 mg PO TID PRN 08/07/19 [History] lisinopriL [Prinivil] 10 mg PO DAILY 08/10/20 [History] ALPRAZolam [Xanax] 0.5 mg PO HS 05/04/22 [History] Divalproex ER [Depakote ER] 500 mg PO BID 05/04/22 [History] Melatonin [Melatonin Dissolving Tablet] 10 mg PO HS 05/04/22 [History] Nicotine 14Mg/24Hr Patch [Habitrol] 1 patch TRANSDERM DAILY PRN 05/04/22 [History] buPROPion XL [Wellbutrin XL] 300 mg PO DAILY 05/04/22 [History] metFORMIN HCL 1,000 mg PO BID 05/04/22 [History] Aspirin 81 mg PO 0400 tab 05/06/22 [Rx] Atorvastatin [Lipitor] 80 mg PO 0400 tab 05/06/22 [Rx] Ticagrelor [Brilinta] 90 mg PO 1800,0400 tab 05/06/22 [Rx] cefUROXime axetiL [Cefuroxime] 500 mg PO BID 10 Days #20 tab 05/06/22 [Rx] Follow up Appointment(s)/Referral(s): [facility] [NON-STAFF] - [facility], [NON-STAFF] - [facility] [REFERRING] - Mauro Garcia DO [Doctor of Osteopathic Medicine] - 1 Week Marin Eaton MD [Primary Care Provider] - 1-2 days Julio Hill MD [STAFF PHYSICIAN] - 1 Week Discharge/Stand Alone Forms: Who Do I Call?
[2022-05-06 17:30] VITALS: BP 175/84; PULSE 95; RESP 17
== END 2022-05-06 17:18 | disposition home health service (06) | DRG 65 ==
LOC: EC 16:22 → 3SCARD 18:38
PROVIDERS: ADMIT Internal Medicine; ATTEND Internal Medicine
PROC: B24BZZ4 Ultrasonography of Heart with Aorta, Transesophageal (ICD-10-PCS; principal; 2022-05-05 12:15)
DX: I63.311 Cerebral infarction due to thrombosis of right middle cerebral artery (principal); E87.1 Hypo-osmolality and hyponatremia; I74.8 Embolism and thrombosis of other arteries; H70.001 Acute mastoiditis without complications, right ear; G81.94 Hemiplegia, unspecified affecting left nondominant side; E11.51 Type 2 diabetes mellitus with diabetic peripheral angiopathy without gangrene; G31.9 Degenerative disease of nervous system, unspecified; F31.9 Bipolar disorder, unspecified; I71.4 Abdominal aortic aneurysm, without rupture; R29.702 NIHSS score 2; I10 Essential (primary) hypertension; I65.21 Occlusion and stenosis of right carotid artery; E03.9 Hypothyroidism, unspecified; E78.5 Hyperlipidemia, unspecified; K21.9 Gastro-esophageal reflux disease without esophagitis; R77.8 Other specified abnormalities of plasma proteins; F17.210 Nicotine dependence, cigarettes, uncomplicated; Z71.6 Tobacco abuse counseling; Z79.84 Long term (current) use of oral hypoglycemic drugs; Z79.890 Hormone replacement therapy; Z79.899 Other long term (current) drug therapy; Z86.73 Personal history of transient ischemic attack (TIA), and cerebral infarction without residual deficits; Z95.828 Presence of other vascular implants and grafts; Z85.819 Personal history of malignant neoplasm of unspecified site of lip, oral cavity, and pharynx; Z85.118 Personal history of other malignant neoplasm of bronchus and lung; Z85.828 Personal history of other malignant neoplasm of skin; Z92.3 Personal history of irradiation; Z87.19 Personal history of other diseases of the digestive system; Z88.1 Allergy status to other antibiotic agents
CPT/HCPCS: 36415; 70450; 70496; 70498; 70551; 71046; 80053; 80061; 82607; 82746; 83036; 84443; 84484; 85025; 85610; 85730; 93306; 93312; 93320; 93325; 93880; 94760; 99291

== ENCOUNTER → 2022-06-30 | Outpatient (CLI) | payer MEDICARE, BC ==
[2022-06-30 18:33] LABS: HCT 40.8 % (39.6-50.0); HGB 14.3 g/dL (13.0-17.0); MCH 34.1 pg (27.0-32.0); MCV 97.4 fL (80.0-97.0); Mean Platelet Volume 9.6 fL (9.5-12.2); NRBC Per 100 WBC 0 /100 WBCS (0.0-0.0); Platelet Count 289 X 10*3/uL (140-440); RBC 4.19 X 10*6/uL (4.40-5.60); RDW 12.4 % (11.5-14.5)
== END | disposition home or self-care (01) ==
LOC: LABPAT 13:24
PROVIDERS: ATTEND Surgery
DX: Z01.812 Encounter for preprocedural laboratory examination (principal)
CPT/HCPCS: 85027

== ENCOUNTER 2022-07-04 08:47 | Inpatient (IN) | payer MEDICARE, BC ==
[2022-06-29 12:40] VITALS: BMI 26.6
[~2022-07-04 08:47] MED LIST changes: +HYDROmorphone 0.5 MG/0.5 ML SYRINGE IVP PRN; +ONDANSETRON 4 MG/2 ML VIAL IVP ONE
[2022-07-04 09:40] LABS: Glucose,Whole Blood 147 mg/dL (70-110)
[2022-07-04] MEDS ORDERED: ONDANSETRON 4 MG/2 ML VIAL IVP ONE (09:45)
[2022-07-04] MEDS ORDERED: METOCLOPRAMIDE 5 MG/ML 2 ML VIAL IVP ONE (09:45)
[2022-07-04] MEDS ORDERED: METOCLOPRAMIDE 5 MG/ML 2 ML VIAL ONE (09:49)
[2022-07-04 09:58] LABS: HCT 39.7 % (39.0-53.0); HGB 13.9 gm/dL (13.0-17.5); MCH 33.3 pg (25.0-35.0); MCHC 35.1 g/dL (31.0-37.0); Mean Platelet Volume 7.8; Platelet Count 288 k/uL (150-450); RBC 4.18 m/uL (4.30-5.90); RDW 12.7 % (11.5-15.5)
[2022-07-04 10:00] LABS: MCV 94.9 fL (80.0-100.0)
[2022-07-04] MEDS ORDERED: MIDAZOLAM 2 MG/2 ML VIAL IVP ONE (10:15)
[2022-07-04] MEDS ORDERED: LIDOCAINE 2% INJ 20 MG/ML (2 ML VIAL) ONE (11:00)
[2022-07-04] MEDS ORDERED: PROTAMINE SULFATE 10 MG/ML 5 ML VIAL IV ONE (11:00)
[2022-07-04] MEDS ORDERED: LIDOCAINE 4% LTA KIT (4 ML) TOPICAL ONE (11:00)
[2022-07-04] MEDS ORDERED: WATER FOR INJECTION, STERILE 10 ML VIAL IV ONE (11:00)
[2022-07-04] MEDS ORDERED: MIDAZOLAM 2 MG/2 ML VIAL ONE (11:00)
[2022-07-04] MEDS ORDERED: SUCCINYLCHOLINE CHLORIDE 200 MG/10 ML VIAL IV ONE (11:00)
[2022-07-04] MEDS ORDERED: ROCURONIUM 10 MG/ML (5 ML VIAL) IV ONE (11:00)
[2022-07-04] MEDS ORDERED: PROPOFOL 10 MG/ML 20 ML VIAL IV ONE (11:00)
[2022-07-04] MEDS ORDERED: NEOSTIGMINE 1 MG/ML 10 ML VIAL ONE (11:00)
[2022-07-04] MEDS ORDERED: GLYCOPYRROLATE 0.2 MG/ML 2 ML VIAL ONE (11:00)
[2022-07-04] MEDS ORDERED: NITROGLYCERIN-D5W PMX 50 MG/250 ML BOTTLE IV ONE (11:00)
[2022-07-04] MEDS ORDERED: HEPARIN SODIUM,PORCINE 10,000 UNIT/ML 1 ML VIAL ONE (11:00)
[2022-07-04] MEDS ORDERED: LABETALOL 5 MG/ML VIAL MDV ONE (11:00)
[2022-07-04] MEDS ORDERED: fentaNYL (PF) 50 MCG/ML 2 ML AMP ONE (11:00)
[2022-07-04] MEDS ORDERED: PHENYLEPHRINE-0.9% NACL SYG 1,000 MCG/10 ML SYRINGE ONE (11:00)
[2022-07-04] MEDS ORDERED: HEPARIN SODIUM (1,000 UNIT/ML) 2,000 UNIT in SODIUM CHLORIDE 0.9% 1,000 ML IRRIGATION ONE (12:20)
[2022-07-04] MEDS ORDERED: THROMBIN (BOVINE) 5,000 UNIT VIAL TOPICAL ONE (13:24)
[2022-07-04] MEDS ORDERED: GELATIN SPONGE,ABSORB (SMALL) 1 EACH SPONGE TOPICAL ONE (13:25)
[2022-07-04] MEDS ORDERED: LACTATED RINGERS 1,000 ML IV ONE (14:00)
[2022-07-04] MEDS ORDERED: TRIMETHOBENZAMIDE 100 MG/ML 2 ML VIAL IM PRN (14:05)
[2022-07-04] MEDS ORDERED: MAG HYDROX/AL HYDROX/SIMETH 30 ML CUP PO PRN (14:05)
[2022-07-04] MEDS ORDERED: HYDROcodone/APAP 5-325MG 1 EACH TAB PO PRN (14:05)
[2022-07-04] MEDS ORDERED: ACETAMINOPHEN TAB 325 MG TAB PO PRN (14:05)
[2022-07-04] MEDS ORDERED: ASPIRIN 81 MG PO SCH (14:15)
[2022-07-04 14:21] LABS: Glucose,Whole Blood 116 mg/dL (70-110)
--- NOTE | 2022-07-04 15:21 | P.OP ---
Date of Procedure: 07/04/22 Preoperative Diagnosis: Hemodynamically severe right ICA stenosis. Postoperative Diagnosis: Same. Procedure(s) Performed: Right carotid endarterectomy with patch angioplasty. Implants: None. Anesthesia: GETA Surgeon: Mauro Garcia Estimated Blood Loss (ml): 100 Urine output (ml): 0 Pathology: other (Right cervical lymph node) Condition: stable Disposition: PACU Indications for Procedure: Patient is a 58 through male with a history of radiation therapy to the cervical area for cancer therapy who was found to be suffering from hemodynamically severe right ICA stenosis. The patient was not considered an appropriate cand idate for carotid stenting secondary to anatomic considerations. Because the degree of severity was felt appropriate the patient undergo carotid endarterectomy. The procedure, risk and benefits were discussed. Patient wishes to proceed. Operative Findings: Please see operative note. Description of Procedure: Patient was brought the upper and placed in the supine position and administered general endotracheal anesthesia delivered by the department anesthesiology. The patient received intravenously administered prophylactic antibiotics in the perioperative phase. The right lateral neck supraclavicular and anterior chest wall were sterilely prepped and draped in usual manner. Incision was made along the anterior border sternocleidomastoid muscle carried down through subjacent tissues. Hemostasis was achieved using electrocautery. Incision was deepened through the platysma muscle and continued along the anterior border of the sternocleidomastoid muscle. Facial vein was identified doubly ligated and divided. Entrance was gained into the carotid sheath. Inflammatory changes from his radiation were evident. The common carotid artery was identified dissected free of investing tissues and encircled Vesseloops. The dissection was then carried cephalad toward the bulb area. A large ansa cervicalis branch was identified. This was mobilized but left intact otherwise. The origin of the external carotid artery was identified and encircled Vesseloops as was the origin of the superior thyroid artery. The vagus nerve was identified and left undisturbed. The dissection was then carried cephalad along the internal carotid artery. The hypoglossal nerve was identified and left undisturbed. The artery was tortuous and required mobilization however once mobilized a vessel loop was placed around the internal carotid artery. The patient was systemically heparinized and after adequate circulation time the Vesseloops surrounding the internal carotid followed by the common and external and carotid segments were drawn closed. Arteriotomy was made in the common carotid and extended with Potshelbi Paredes scissors into the internal carotid. Backbleeding was questionable as to indication of adequate collateral flow. Difficulty was experienced obtaining a stump pressure and as such a shunt was placed. This was initially placed in the internal carotid artery allowed to backbleed and then placed in the common carotid artery. Flow was then restored into the internal segment. Endarterectomy was begun at the level of the common and extended to the bulb where a retraction endarterectomy was performed on the external segment. The thromboendarterectomy plane was then extended into the internal segment and the plaque was removed and sent to the pathology department. The distal end did not feather off as otherwise desired and was tacked with 6-0 Prolene suture. The remaining luminal surface was inspected for any loose or free-floating material and where identified was removed. Patch angioplasty closure of the arteriotomy was performed with bovine pericardium and 6-0 Prolene suture placed in running fashion. Just prior to completion of the anastomotic line the shunt was clamped and removed. The artery was then flushed with heparinized saline solution and just prior to completion of the anastomotic line backbleeding through the internal and common as well as external carotid arteries were performed and no thrombus was retrieved. The anastomotic line was then completed. Vesseloops surrounding the external carotid were released and flow was then restored into the internal carotid segment excellent pulse was identified in the internal segment to distal to the endarterectomy plane. 2 points of bleeding were identified about the anastomotic line. These were controlled with Prolene suture. The patient received 25 mg of protamine to reverse the heparin effect. Topical thrombin and Gelfoam were placed about the anastomotic line. Reinspection demonstrated adequate hemostasis. Deep tissues were closed with 3-0 Vicryl and dermis was approximated with a running intradermal suture of 4-0 Monocryl. Skin glue and appropriate dressings were applied. Patient tolerated procedure well. Awoke without apparent neurologic complication was transferred to the recovery areas fact and stable condition.
[2022-07-04] MEDS ORDERED: HYDROmorphone 0.5 MG/0.5 ML SYRINGE IVP ONE (16:14)
[2022-07-04 16:51] LABS: Glucose,Whole Blood 141 mg/dL (70-110)
[2022-07-04 19:40] LABS: Glucose,Whole Blood 176 mg/dL (70-110)
[2022-07-04] MEDS ORDERED: ENOXAPARIN 40 MG/0.4 ML SYRINGE SQ SCH (20:00)
[2022-07-04] MEDS: metFORMIN 500 MG TAB PO SCH (20:03)
[2022-07-04] MEDS: glipiZIDE 5 MG TAB PO SCH (20:03)
[2022-07-04] MEDS: DIVALPROEX ER 500 MG TAB.ER.24H PO SCH (20:03)
--- NOTE | 2022-07-04 20:27 | P.ANPRN ---
Procedure Note - Anesthesia - Invasive Line Right Arterial Line Time Out Performed: Yes Date of Procedure: 07/04/22 Time of Procedure: 10:35 Location of Patient: PreOp Preparation: Sterile Prep, Sterile Dressing Arterial Line Location: Brachial Ultrasound Used: Yes Purpose - Visualization and Identification of Vasculature: Yes Narrative: Central line placement per sterile protocol utilized. Informed consent obtained from the patient. Procedure was performed under complete aseptic precautions. The right wrist is slightly extended and placed on a roll of cloth. Radial artery palpated and appeared to have a intact collateral circulation. Front of the wrist was cleaned with ChloraPrep. It was draped and 2 mL of 1% lidocaine was infiltrated and ability into the front of the wrist. A 20-gauge two and half inch Arrow arterial catheter was inserted and a bright red blood/back was noticed. I was unable to thread the catheter through the guidewire. After a few attempts it was abandoned. A right brachial arterial line was inserted under ultrasound guidance in aseptic manner. It was connected to the pressure monitoring line and the flashback was confirmed. The line was sutured into the skin. Tegaderm dressing was applied. Patient tolerated the procedure very well with no apparent complications.
[2022-07-04] MEDS ORDERED: METOPROLOL SUCCINATE 25 MG PO SCH (21:00)
[2022-07-04] MEDS ORDERED: ALPRAZolam 0.5 MG TAB PO SCH (21:00)
[2022-07-04] MEDS ORDERED: MELATONIN 5 MG TABLET PO SCH (21:00)
[2022-07-05 05:40] LABS: Glucose,Whole Blood 157 mg/dL (70-110)
[2022-07-05] MEDS ORDERED: LEVOTHYROXINE 25 MCG TAB PO SCH (06:30)
[2022-07-05] MEDS: metFORMIN 500 MG TAB PO SCH (06:39)
--- NOTE | 2022-07-05 07:28 | P.PN ---
Progress Note - Text Consult received. I am on vacation this week. IPR has been notified of referal. No PT/OT orders on chart or H&P. Insurance will require these.
[2022-07-05] MEDS ORDERED: PANTOPRAZOLE 40 MG TABLET PO SCH (07:30)
[2022-07-05] MEDS ORDERED: buPROPion XL 300 MG TAB.ER.24H PO SCH (09:00)
[2022-07-05] MEDS ORDERED: lisinopriL 10 MG TAB PO SCH (09:00)
[2022-07-05] MEDS ORDERED: TICAGRELOR 90 MG TAB PO SCH (09:00)
[2022-07-05] MEDS ORDERED: METOPROLOL SUCCINATE (ER) 25 MG TAB.ER.24H PO SCH (09:00)
[2022-07-05] MEDS ORDERED: ASPIRIN 81 MG PO SCH (09:00)
[2022-07-05] MEDS ORDERED: ATORVASTATIN 80 MG TAB PO SCH (09:00)
[2022-07-05] MEDS ORDERED: NICOTINE 14MG/24HR PATCH TRANSDERM STA (09:40)
[2022-07-05] MEDS: glipiZIDE 5 MG TAB PO SCH (09:46)
[2022-07-05] MEDS: DIVALPROEX ER 500 MG TAB.ER.24H PO SCH (09:46)
[2022-07-05 11:12] VITALS: PULSE 84
[2022-07-05 11:24] VITALS: BP 160/74; RESP 20; TEMP 98.2
[2022-07-05 11:38] LABS: Glucose,Whole Blood 148 mg/dL (70-110)
--- NOTE | 2022-07-05 13:09 | P.DS ---
Providers Date of admission: 07/04/22 08:47 Expected date of discharge: 07/05/22 Attending physician: Mauro Garcia, Consults: 07/04/22 14:05 Consult Physician Routine Consulting Provider: Marin Eaton Consult Reason/Comments: medical management Do you want consulting provider notified?: Yes 07/04/22 17:17 Consult Physician Routine Consulting Provider: Reji Pickering Consult Reason/Comments: gait disturbance Do you want consulting provider notified?: Yes Primary care physician: Marin [facility] Course: This is a pleasant 61-year-old man who was diagnosed with severe right internal carotid artery stenosis, yesterday he presented for scheduled right carotid endarterectomy with patch angioplasty. Today he is postop day #1. He states he does have some tenderness along the right side of his neck. He is not having any difficulty swallowing. He has no reported focal deficits through the night. Blood pressure is stable. Primary medicine following an consulted Dr. Pickering, inpatient rehab has been notified for gait imbalance. However patient states he lives alone he walks and ambulates without any difficulty. Moore catheter was discontinued, he has voided. He has been up and ambulating in the room to the chair. Exam General appearance: The patient is alert, oriented, appears in no acute distress. HET: Head is normocephalic and atraumatic. Pupils are equal and reactive. Neck: Supple without lymphadenopathy. Trachea midline. Right-sided neck surgical incision well approximated with glue, some surrounding swelling, no erythema no hematoma. Heart: S1 S2. Regular rate and rhythm. Lungs: Clear to auscultation bilaterally. Abdomen: Soft, nontender, nondistended. Extremities: Normal skin color and turgor. No cyanosis, rash, ulceration, clubbing, or edema. Neurological: No focal deficits. Strength and sent sensation intact. The impression and plan of care has been dictated as directed. I performed a history and examination of this patient, discussed the same with the dictator. I agree with the dictator's note ,documented as a scribe. Any additional findings or plans will be noted. Procedures: Right carotid endarterectomy with patch angioplasty Patient Condition at Discharge: Stable Plan - Discharge Summary Discharge Rx Participant: Yes New Discharge Prescriptions: Continue glipiZIDE [Glucotrol] 5 mg PO TID Levothyroxine Sodium [Synthroid] 25 mcg PO QAM Divalproex ER [Depakote ER] 500 mg PO BID buPROPion XL [Wellbutrin XL] 300 mg PO QAM ALPRAZolam [Xanax] 0.5 mg PO HS Pantoprazole [Protonix] 40 mg PO QAM lisinopriL [Zestril] 10 mg PO DAILY metFORMIN HCL 1,000 mg PO BID Melatonin [Melatonin Dissolving Tablet] 10 mg PO HS Ticagrelor [Brilinta] 90 mg PO DAILY Atorvastatin [Lipitor] 80 mg PO DAILY Aspirin 81 mg PO DAILY Metoprolol Succinate (? Dose) 25 mg PO DAILY Discharge Medication List Levothyroxine Sodium [Synthroid] 25 mcg PO QAM 08/07/19 [History] glipiZIDE [Glucotrol] 5 mg PO TID 08/07/19 [History] ALPRAZolam [Xanax] 0.5 mg PO HS 05/04/22 [History] Divalproex ER [Depakote ER] 500 mg PO BID 05/04/22 [History] Melatonin [Melatonin Dissolving Tablet] 10 mg PO HS 05/04/22 [History] buPROPion XL [Wellbutrin XL] 300 mg PO QAM 05/04/22 [History] metFORMIN HCL 1,000 mg PO BID 05/04/22 [History] Aspirin 81 mg PO DAILY 06/29/22 [History] Atorvastatin [Lipitor] 80 mg PO DAILY 06/29/22 [History] Metoprolol Succinate (? Dose) 25 mg PO DAILY 06/29/22 [History] Pantoprazole [Protonix] 40 mg PO QAM 06/29/22 [History] Ticagrelor [Brilinta] 90 mg PO DAILY 06/29/22 [History] lisinopriL [Zestril] 10 mg PO DAILY 07/04/22 [History] Follow up Appointment(s)/Referral(s): Mauro Garcia DO [Doctor of Osteopathic Medicine] - 2 Weeks Marin Eaton MD [Primary Care Provider] - 3 Days Patient Instructions/Handouts: Carotid Endarterectomy (DC) Activity/Diet/Wound Care/Special Instructions: No strenuous activity or heavy lifting greater than 10 pounds. May shower tomorrow 07/06/2022 but no tub bathing or soaking. Watch incision site for infection including redness, drainage, or temperature greater than 100.4. If you notice he symptoms please call office Discharge Disposition: HOME SELF-CARE
== END 2022-07-05 15:18 | disposition home health service (06) | DRG 39 ==
LOC: 2ORMAIN 08:47 → 3SCARD 14:58
PROVIDERS: ADMIT Surgery; ATTEND Surgery
PROC: 03CK0ZZ Extirpation of Matter from Right Internal Carotid Artery, Open Approach (ICD-10-PCS; principal; 2022-07-04 10:30)
PROC: 03UK0KZ Supplement Right Internal Carotid Artery with Nonautologous Tissue Substitute, Open Approach (ICD-10-PCS; principal; 2022-07-04 10:30)
DX: I65.23 Occlusion and stenosis of bilateral carotid arteries (principal); R26.89 Other abnormalities of gait and mobility; I71.40 Abdominal aortic aneurysm, without rupture, unspecified; E03.9 Hypothyroidism, unspecified; I10 Essential (primary) hypertension; E11.51 Type 2 diabetes mellitus with diabetic peripheral angiopathy without gangrene; F31.9 Bipolar disorder, unspecified; E78.5 Hyperlipidemia, unspecified; Z92.3 Personal history of irradiation; Z87.891 Personal history of nicotine dependence; Z85.21 Personal history of malignant neoplasm of larynx; Z85.828 Personal history of other malignant neoplasm of skin; Z79.890 Hormone replacement therapy; Z79.899 Other long term (current) drug therapy; Z79.84 Long term (current) use of oral hypoglycemic drugs; Z88.1 Allergy status to other antibiotic agents; Z88.8 Allergy status to other drugs, medicaments and biological substances; Z86.73 Personal history of transient ischemic attack (TIA), and cerebral infarction without residual deficits; Z98.890 Other specified postprocedural states; Z82.49 Family history of ischemic heart disease and other diseases of the circulatory system; Z83.3 Family history of diabetes mellitus
CPT/HCPCS: 85027; 86850; 86900; 86901; 88304; 88305

== ENCOUNTER → 2022-08-29 | Outpatient (CLI) | payer MEDICARE, BC ==
[2022-08-29 12:29] LABS: African American GFR (CKD) >90 (>60 ml/min/1.73 sqM); Blood Urea Nitrogen 15 mg/dL (9-20); Non-African American GFR(CKD) >90 (>60 ml/min/1.73 sqM)
--- NOTE | 2022-08-29 13:50 | CT ---
EXAMINATION TYPE: CT angio abd aorta w/Runoff DATE OF EXAM: 08/29/2022 COMPARISON: 02/09/2021 INDICATION: Leg cramping, history of AAA repair DLP: 3412 mGycm, Automated exposure control for dose reduction was used. CONTRAST: 125 mL of Isovue 370. Study performed without Oral Contrast TECHNIQUE: Axial images were obtained from above the diaphragm to the pubic rami in the axial plane a t 5 mm thick sections. Reconstructed images are reviewed on the computer in the coronal plane. FINDINGS: Limited CT sections are obtained the lung bases. The lung bases are clear. CT ABDOMEN: Liver: Normal Spleen: Normal Pancreas: Normal Adrenal glands: The adrenal glands are normal. Gallbladder: Normal Kidneys: No masses are evident. No hydronephrosis is present. No cysts are present. No renal stone s are evident Aorta: Vascular calcification is within the aorta. There is aneurysmal dilatation of the abdominal a augie. There is been prior repair of aortic stent placement below the renal arteries. This extends to the common iliac vessels. No endovascular leak is identified. Internal and external iliac vessels are patent proximally. The left internal iliac artery may be obstructed. Inferior vena cava: Normal. CT PELVIS: Loops of bowel within the abdomen and pelvis are normal. This study is without oral contrast limi ting bowel evaluation. Moderate fecal retention appears to be present in the colon. Appendix: Not identified. No dilated tubular structure or inflammatory change is evident. Urinary bladder: Diffusely thickened urinary bladder wall. Correlate for neurogenic bladder or cystit is. Genitourinary structures: Prostate contains calcification. Osseous structures: No suspicious lytic or sclerotic lesions. RUNOFF: Superficial femoral arteries are obstructed near their origins. Profunda femoris vessels are patent. Collateralization extends to the popliteal arteries which are patent bilaterally. Trifurcatio n vessels are patent bilaterally at their origins. The posterior tibial arteries appear diminutive an d obstructed within the midportion of the calf. This is slightly extended greater on the right compar ed to the left. Anterior tibial and peroneal arteries extend to nearly the ankle. These are lost at t he level of the ankle earlier on the left. Anterior tibial arteries are patent bilaterally. IMPRESSIONS: 1. Obstruction of the superficial femoral arteries bilaterally near their origins. 2. Collateralization reconstituting the popliteal arteries bilaterally. Proximal trifurcation vessels are patent. 3. Posterior tibial arteries obstructed within the mid to distal calf, earlier on the left than the r ight. 4. Anterior tibial arteries patent at the level of the ankles. 5. No endovascular leak within the stented aortic aneurysm evident. 6. Diffusely thickened urinary bladder wall. Correlate for neurogenic bladder and cystitis. Neoplasm would be considered less likely. 7. Moderate fecal retention diffusely throughout the colon without obstruction.
== END | disposition home or self-care (01) ==
LOC: RADCTMAIN 11:42
PROVIDERS: ATTEND Surgery
DX: I74.3 Embolism and thrombosis of arteries of the lower extremities (principal); K56.41 Fecal impaction; N32.89 Other specified disorders of bladder
CPT/HCPCS: 82565; 84520; 75635; 36415; Q9967

== ENCOUNTER 2022-10-17 05:54 | Inpatient (IN) | payer MEDICARE, BC ==
[2022-10-17] MEDS ORDERED: HYDROmorphone 0.5 MG/0.5 ML SYRINGE IVP PRN (06:05)
[2022-10-17] MEDS ORDERED: LIDOCAINE 1% (10MG/ML) FOR IV START INTRADERMA PRN (06:05)
[2022-10-17] MEDS ORDERED: ONDANSETRON 4 MG/2 ML VIAL IVP ONE (06:05)
[2022-10-17] MEDS ORDERED: DEXAMETHASONE SOD PHOSPHATE 4 MG/ML 1 ML VIAL IV ONE (06:05)
[2022-10-17 06:53] LABS: Glucose,Whole Blood 140 mg/dL (70-110)
[2022-10-17] MEDS: LACTATED RINGERS 1,000 ML IV SCH (06:53)
[2022-10-17] MEDS ORDERED: MIDAZOLAM 2 MG/2 ML VIAL IVP ONE (07:02)
[2022-10-17 07:14] LABS: HGB 13.2 gm/dL (13.0-17.5); MCH 33.7 pg (25.0-35.0); MCHC 34.7 g/dL (31.0-37.0); MCV 97.2 fL (80.0-100.0); Mean Platelet Volume 7.6; Platelet Count 238 k/uL (150-450); RBC 3.91 m/uL (4.30-5.90); RDW 13.9 % (11.5-15.5); WBC 8.1 k/uL (3.8-10.6)
[2022-10-17] MEDS ORDERED: NEOSTIGMINE 1 MG/ML 10 ML VIAL ONE (07:34)
[2022-10-17] MEDS ORDERED: ePHEDrine 50 MG/ML 1 ML VIAL ONE (07:34)
[2022-10-17] MEDS ORDERED: MIDAZOLAM 2 MG/2 ML VIAL ONE (07:34)
[2022-10-17] MEDS ORDERED: PROPOFOL 10 MG/ML 20 ML VIAL IV ONE (07:34)
[2022-10-17] MEDS ORDERED: ROCURONIUM 10 MG/ML (5 ML VIAL) IV ONE (07:34)
[2022-10-17] MEDS ORDERED: fentaNYL (PF) 50 MCG/ML 2 ML AMP ONE (07:34)
[2022-10-17] MEDS ORDERED: HEPARIN SODIUM,PORCINE 10,000 UNIT/ML 1 ML VIAL ONE (07:34)
[2022-10-17] MEDS ORDERED: GLYCOPYRROLATE 0.2 MG/ML 2 ML VIAL ONE (07:34)
[2022-10-17] MEDS ORDERED: LIDOCAINE 2% INJ 20 MG/ML (2 ML VIAL) ONE (07:34)
[2022-10-17] MEDS ORDERED: SUCCINYLCHOLINE CHLORIDE 200 MG/10 ML VIAL IV ONE (07:34)
[2022-10-17] MEDS ORDERED: PHENYLEPHRINE-0.9% NACL SYG 1,000 MCG/10 ML SYRINGE ONE (07:34)
[2022-10-17 07:51] LABS: Partial Thromboplastin Time 26.5 sec (22.0-30.0); Prothrombin Time 10.9 sec (9.0-12.0)
[2022-10-17 07:52] LABS: African American GFR (CKD) >90 (>60 ml/min/1.73 sqM); Anion Gap 6 mmol/L; Blood Urea Nitrogen 8 mg/dL (9-20); Calcium 8.9 mg/dL (8.4-10.2); Carbon Dioxide 28 mmol/L (22-30); Chloride 97 mmol/L (98-107); Glucose 131 mg/dL (74-99); Non-African American GFR(CKD) >90 (>60 ml/min/1.73 sqM); Potassium 4.8 mmol/L (3.5-5.1); Sodium 131 mmol/L (137-145)
[2022-10-17] MEDS ORDERED: ceFAZolin 1,000 MG in SODIUM CHLORIDE 0.9% 1,000 ML IRRIGATION ONE (08:19)
[2022-10-17] MEDS ORDERED: HEPARIN SODIUM,PORCINE 10,000 UNIT in SODIUM CHLORIDE 0.9% 1,000 ML IRRIGATION ONE (08:19)
[2022-10-17] MEDS ORDERED: LACTATED RINGERS 1,000 ML IV ONE ×2 (09:46→10:10)
[2022-10-17] MEDS ORDERED: ACETAMINOPHEN TAB 325 MG TAB PO PRN (10:20)
[2022-10-17] MEDS ORDERED: MORPHINE SULFATE 2 MG/ML SYRINGE IVP PRN (10:20)
[2022-10-17] MEDS ORDERED: MAG HYDROX/AL HYDROX/SIMETH 30 ML CUP PO PRN (10:20)
--- NOTE | 2022-10-17 10:32 | P.OP ---
Date of Procedure: 10/17/22 Preoperative Diagnosis: #1: Left superficial femoral artery occlusion. #2: Lifestyle limiting Claudication secondary to #1. Postoperative Diagnosis: Same. Procedure(s) Performed: Left femoral-popliteal bypass graft utilizing 8 mm PTFE graft. Implants: PTFE bypass graft. Anesthesia: GETA Surgeon: Mauro Garcia Estimated Blood Loss (ml): 50 Pathology: none sent Condition: stable Disposition: floor Indications for Procedure: Patient is a 62-year-old male with a history of lifestyle limiting calf claudication. Evaluation demonstrated femoral pulse to be intact on the left lobe the popliteal, DP and PT pulses are absent. Patient did undergo CT angiogram which demonstrated a left SFA occlusion with good popliteal and tibial vessel runoff. Patient was felt to be appropriate candidate for bypass utilizing PTFE as we are able to stay above the knee for the target vessel. The procedure, risk and benefits were discussed. Patient wishes to proceed. Description of Procedure: Description of procedure and findings: Patient was brought the upper and placed in supine position and administered general endotracheal anesthesia delivered by the department of anesthesiology. Moore catheter is placed to gravity drainage. Patient received 2 g of Ancef in the perioperative phase for prophylactic perioperative antibiotic therapy. The left lower extremity was then sterilely prepped and draped in the usual manner. Skin incision was made overlying the femoral artery on the left and carried down through the subcu change tissues. Hemostasis was achieved using electrocautery. Lymphatic layer was divided laterally swept medially exposing the femoral sheath. This was incised and the femoral artery was identified. The artery was dissected free of investing tissues up to the inguinal ligament where a vessel loop was doubly passed around the proximal common femoral artery. The profundus femoris as well as superficial femoral arteries were similarly encircled with vessel loop. The wound was then packed with antibiotic-soaked gauze. Attention was turned to the distal thigh area were skin incision was made medially extended through subcu change tissues. Hemostasis was achieved using electrocautery. Care was taken to avoid the great saphenous vein. The incision was deepened through the subcutaneous tissues and the popliteal space was entered. The distal SFA and proximal popliteal arterial segments were dissected free of investing tissues and encircled Vesseloops. An 8 mm PTFE graft was selected and tunneled between the 2 incisions. The patient was systemically heparinized and after adequate circulation time vessel loops surrounding the superficial femoral and fundus femoris arteries were drawn closed and a clamp was placed at the proximal common femoral level. Arteriotomy in the common femoral artery was made and carried proximally and distally. Good backbleeding through the profundus was identified. The profundus was flushed with heparinized saline solution. The graft was spatulated match arteriotomy and an end-to-side anastomosis between the graft and the artery was completed with 6-0 Prolene suture. Just prior to completion of the anastomotic line the graft was clamped and ba ckbleeding through the profundus and superficial femoral arteries were allowed to occur and finally through the common femoral artery. No thrombus was retrieved in the anastomotic line was completed. The artery was once again clamped and hemostatic agent was placed about the anastomotic line to help with hemostasis. Antibiotic soaked gauze was placed within the wound. Attention was turned to the thigh incision. The Vesseloops surrounding the distal SFA/popliteal artery were drawn closed and arteriotomy was made and extended with Pott Paredes scissors. Backbleeding through the popliteal artery was confirmed and the artery was flushed with heparinized saline solution. The graft was cut the appropriate length and spatulated. End-to-side anastomosis between the graft and the artery was performed with 6-0 Prolene suture. Just prior to completion of the anastomotic line the artery was backbled and the graft was flushed and no thrombus was retrieved. The anastomotic line was then completed and flow restored through the graft. Excellent pulse in the artery distal to the anastomotic line was noted. The patient received 25 mg of protamine to help reverse the heparin effect. Both wounds were inspected for hemostasis and hemostasis was judged be adequate. Both wounds were then irrigated with antibiotic containing solution. Both wounds were closed in multiple layers with 3-0 Vicryl suture and 4-0 Monocryl was placed within the dermal level placed in a running fashion. Skin glue was then applied to both wounds. Patient tolerated the procedure well and had a palpable dorsalis pedis pulse at the completion of the surgery. He awoke without apparent complication and was transferred to the recovery area satisfactory and stable condition.
[2022-10-17 10:44] LABS: Glucose,Whole Blood 193 mg/dL (70-110)
[2022-10-17] MEDS ORDERED: hydrALAZINE HCL 20 MG/ML 1 ML VIAL IV ONE (11:23)
[2022-10-17] MEDS ORDERED: HYDROmorphone 0.5 MG/0.5 ML SYRINGE IVP ONE (12:55)
[2022-10-17] MEDS ORDERED: ATORVASTATIN 80 MG TAB PO SCH ×2 (14:45→21:00)
[2022-10-17 16:31] LABS: Glucose,Whole Blood 228 mg/dL (70-110)
[2022-10-17] MEDS: glipiZIDE 5 MG TAB PO SCH (17:46)
[2022-10-17] MEDS: ASPIRIN 81 MG PO SCH (17:46)
[2022-10-17] MEDS: metFORMIN 500 MG TAB PO SCH (17:46)
[2022-10-17] MEDS: HYDROcodone/APAP 5-325MG 1 EACH TAB PO PRN ×2 (17:46→23:25)
[2022-10-17] MEDS: CLOPIDOGREL 75 MG TAB PO SCH (17:46)
[2022-10-17] MEDS: ALPRAZolam 0.5 MG TAB PO SCH (17:46)
[2022-10-17] MEDS: NICOTINE 7MG/24HR PATCH TRANSDERM SCH (18:06)
[2022-10-17 19:44] LABS: Glucose,Whole Blood 231 mg/dL (70-110)
[2022-10-17 19:54] VITALS: RESP 16
[2022-10-17] MEDS: DIVALPROEX ER 500 MG TAB.ER.24H PO SCH (20:24)
[2022-10-17] MEDS: TAMSULOSIN 0.4 MG CAP.ER.24H PO SCH (20:24)
[2022-10-17] MEDS ORDERED: MELATONIN 5 MG TABLET PO SCH (21:00)
[2022-10-17] MEDS ORDERED: metFORMIN 500 MG TAB PO SCH (21:00)
[2022-10-18] MEDS: HYDROcodone/APAP 5-325MG 1 EACH TAB PO PRN ×2 (03:42→08:23)
[2022-10-18] MEDS: LACTATED RINGERS 1,000 ML IV SCH (03:44)
[2022-10-18 06:02] LABS: Glucose,Whole Blood 169 mg/dL (70-110)
[2022-10-18] MEDS: glipiZIDE 5 MG TAB PO SCH ×3 (06:07→17:24)
[2022-10-18] MEDS: metFORMIN 500 MG TAB PO SCH ×2 (06:08→17:24)
[2022-10-18] MEDS ORDERED: LEVOTHYROXINE 25 MCG TAB PO SCH ×2 (06:30→09:00)
[2022-10-18] MEDS ORDERED: glipiZIDE 5 MG TAB PO SCH (07:30)
[2022-10-18] MEDS ORDERED: ONDANSETRON 4 MG/2 ML VIAL IVP PRN (08:19)
[2022-10-18] MEDS: ALPRAZolam 0.5 MG TAB PO SCH (08:25)
[2022-10-18] MEDS: CLOPIDOGREL 75 MG TAB PO SCH (08:25)
[2022-10-18] MEDS: ASPIRIN 81 MG PO SCH (08:25)
[2022-10-18] MEDS: DIVALPROEX ER 500 MG TAB.ER.24H PO SCH (08:25)
[2022-10-18] MEDS: NICOTINE 7MG/24HR PATCH TRANSDERM SCH (08:25)
[2022-10-18] MEDS ORDERED: METOPROLOL SUCCINATE (ER) 25 MG TAB.ER.24H PO SCH (09:00)
[2022-10-18] MEDS ORDERED: buPROPion XL 300 MG TAB.ER.24H PO SCH (09:00)
[2022-10-18] MEDS ORDERED: ASPIRIN 81 MG PO SCH (09:00)
[2022-10-18] MEDS ORDERED: lisinopriL 10 MG TAB PO SCH (09:00)
[2022-10-18] MEDS ORDERED: PANTOPRAZOLE 40 MG TABLET PO SCH (09:00)
[2022-10-18] MEDS ORDERED: DOCUSATE 100 MG CAP PO SCH (09:00)
[2022-10-18] MEDS ORDERED: TAMSULOSIN 0.4 MG CAP.ER.24H PO STA (10:45)
--- NOTE | 2022-10-18 10:49 | P.DS ---
Providers Date of admission: 10/17/22 05:54 Expected date of discharge: 10/18/22 Attending physician: Mauro Garcia DO Consults: 10/17/22 10:17 Consult Physician Routine Consulting Provider: Marin Eaton Consult Reason/Comments: medical management, status post left fem/pop bypass Do you want consulting provider notified?: Yes Primary care physician: Marin Angelito [facility] Course: 62-year-old male with a history of lifestyle limiting claudication with absent popliteal DP and PT pulses underwent a CT angiogram that demonstrated a left SFA occlusion with good popliteal and tibial vessel runoff. Patient scheduled for outpatient left femoral to popliteal bypass. He is postop day #1 for left femoral-popliteal bypass graft with PTFE graft. This morning patient did have some vomiting after breakfast. He states that the food and coffee or neck which prompted him to have nausea and vomiting. He otherwise denies any current nausea. No abdominal pain, fevers or chills. His pain has been well-managed of he does have some pain mostly in the left groin. He does have swelling down that left lower extremity. He did have some urinary retention yesterday evening, straight cathed for 800 mL out. This morning a bladder scan shows approximately 100 mL urine. Patient does use Flomax at home. Physical therapy was in to see patient and is recommending a walker. Patient has been up and walking to the bathroom. Patient was still unable to void, urology consulted and has seen patient. He was straight cathed at 12:45 for 800 ML output. Urology recommends home with Moore catheter if patient not able to void in the next 2 hours. Agree with this plan. With follow-up with urology on Monday. Assessment: 1. Left superficial femoral artery occlusion with lifestyle limiting extremity claudication status post left fem-pop bypass 2. Urinary retention Exam: General appearance: The patient is alert, oriented, appears in no acute distress. HET: Head is normocephalic and atraumatic. Neck: Supple without lymphadenopathy. Trachea midline. Heart: Regular. Lungs: Equal expansion, normal respiratory effort. Abdomen: Soft, nontender, nondistended. Extremities: Normal skin color and turgor. Left lower extremity with swelling. Left groin incision well approximated without any hematoma, bruising or drainage. Left bypass incision well approximated. Palpable DP and PT pulses. Neurological: No focal deficits. Strength and sensation are grossly intact. Procedures: Date of Procedure: 10/17/22 Preoperative Diagnosis: #1: Left superficial femoral artery occlusion. #2: Lifestyle limiting Claudication secondary to #1. Postoperative Diagnosis: Same. Procedure(s) Performed: Left femoral-popliteal bypass graft utilizing 8 mm PTFE graft. Implants: PTFE bypass graft. Patient Condition at Discharge: Stable Plan - Discharge Summary Discharge Rx Participant: No New Discharge Prescriptions: New Nicotine 7Mg/24Hr Patch [Habitrol] 1 patch TRANSDERM DAILY patch HYDROcodone/APAP 5-325MG [[place] 5-325] 1 each PO Q4HR PRN #18 tab PRN Reason: Pain Scale 8 To 10 Metoprolol Succinate (ER) [Toprol XL] 25 mg PO DAILY tab Continue glipiZIDE [Glucotrol] 5 mg PO TID Levothyroxine Sodium [Synthroid] 25 mcg PO QAM Divalproex ER [Depakote ER] 500 mg PO BID buPROPion XL [Wellbutrin XL] 300 mg PO QAM ALPRAZolam [Xanax] 0.5 mg PO DAILY Pantoprazole [Protonix] 40 mg PO QAM lisinopriL [Zestril] 10 mg PO DAILY metFORMIN HCL 1,000 mg PO BID Melatonin [Melatonin Dissolving Tablet] 10 mg PO HS Ticagrelor [Brilinta] 90 mg PO DAILY Atorvastatin [Lipitor] 80 mg PO DAILY Aspirin 81 mg PO DAILY Tamsulosin HCl [Flomax] 0.4 mg PO Discontinued Metoprolol Succinate (? Dose) 25 mg PO DAILY Discharge Medication List Levothyroxine Sodium [Synthroid] 25 mcg PO QAM 08/07/19 [History] glipiZIDE [Glucotrol] 5 mg PO TID 08/07/19 [History] ALPRAZolam [Xanax] 0.5 mg PO DAILY 05/04/22 [History] Divalproex ER [Depakote ER] 500 mg PO BID 05/04/22 [History] Melatonin [Melatonin Dissolving Tablet] 10 mg PO HS 05/04/22 [History] buPROPion XL [Wellbutrin XL] 300 mg PO QAM 05/04/22 [History] metFORMIN HCL 1,000 mg PO BID 05/04/22 [History] Aspirin 81 mg PO DAILY 06/29/22 [History] Atorvastatin [Lipitor] 80 mg PO DAILY 06/29/22 [History] Pantoprazole [Protonix] 40 mg PO QAM 06/29/22 [History] Ticagrelor [Brilinta] 90 mg PO DAILY 06/29/22 [History] lisinopriL [Zestril] 10 mg PO DAILY 07/04/22 [History] Tamsulosin HCl [Flomax] 0.4 mg PO 10/17/22 [History] HYDROcodone/APAP 5-325MG [[place] 5-325] 1 each PO Q4HR PRN #18 tab 10/18/22 [Rx] Metoprolol Succinate (ER) [Toprol XL] 25 mg PO DAILY tab 10/18/22 [Rx] Nicotine 7Mg/24Hr Patch [Habitrol] 1 patch TRANSDERM DAILY patch 10/18/22 [Rx] Follow up Appointment(s)/Referral(s): [facility], [NON-STAFF] - Marin Eaton MD [Primary Care Provider] - 1 Week Mauro Garcia DO [Doctor of Osteopathic Medicine] - 2 Weeks Patient Instructions/Handouts: Femoropopliteal Bypass (DC) Activity/Diet/Wound Care/Special Instructions: No driving for 3-4 days. Avoid heavy lifting greater than 10 lbs , pushing, pulling, straining, flights of stairs for three days. ok to shower tomorrow but no baths, pools, soaking in tubs for three days to avoid risk of infection. signs of infection ie: fever, rash, drainage from puncture site, swelling contact doctor or return to ER immediately. Heavy bleeding from puncture site apply firm direct pressure and return to ER. Do not attempt to drive self. low sodium/low fat diet Smoking cessation Discharge Disposition: HOME WITH HOME HEALTH SERVICES
[2022-10-18 11:34] LABS: Glucose,Whole Blood 204 mg/dL (70-110)
--- NOTE | 2022-10-18 14:59 | P.GSCN ---
History of Present Illness Consult date: 10/18/22 Reason for Consult: Urinary retention Requesting physician: Purvi Justin History of present illness: The patient is a 66-year-old male with a past medical history significant for diabetes mellitus, hypertension, skin cancer, hypothyroid, and pancreatitis. The patient had a left superficial femoral artery occlusion and underwent a femoral popliteal bypass graft on 10/17/[address] Espinosa. The patient was unable to void once his Moore catheter was discontinued. He was straight catheterized for 825 ml and 800 mls. He has a history of BPH and has been taking Flomax that was prescribed by Dr. Eaton. Review of Systems - Constitutional Denies chills, Denies fever - EENT Ears, nose, mouth and throat: Denies headache - Cardiovascular Denies chest pain - Respiratory Denies cough - Gastrointestinal Denies abdominal pain, Denies nausea, Denies vomiting - Genitourinary Reports urinary hesitancy, Denies dysuria, Denies urinary frequency - Neurological Denies confusion Past Medical History Past Medical History: Cancer, CVA/TIA, Diabetes Mellitus, Hyperlipidemia, Hypertension, Thyroid Disorder, Vascular Disorder Additional Past Medical History / Comment(s): Current pain in calves. 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 No residual effects from CVA. Hx skin and throat cancer. Hx pancreatitis in 2012. "abdominal pain and nausea from medications, better since taking Pantoprazole". 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, colonoscopy, AAA REPAIR.rt carotid endartectomy 07/2022 Past Anesthesia/Blood Transfusion Reactions: No Reported Reaction Smoking Status: Former smoker - Past Family History Mother Family Medical History: No Reported History Medications and Allergies Home Medications Medication Instructions Recorded Confirmed Type Levothyroxine Sodium [Synthroid] 25 mcg PO QAM 08/07/19 10/17/22 History glipiZIDE [Glucotrol] 5 mg PO TID 08/07/19 10/17/22 History ALPRAZolam [Xanax] 0.5 mg PO DAILY 05/04/22 10/17/22 History Divalproex ER [Depakote ER] 500 mg PO BID 05/04/22 10/17/22 History Melatonin [Melatonin Dissolving 10 mg PO HS 05/04/22 10/17/22 History Tablet] buPROPion XL [Wellbutrin XL] 300 mg PO QAM 05/04/22 10/17/22 History metFORMIN HCL 1,000 mg PO BID 05/04/22 10/17/22 History Aspirin 81 mg PO DAILY 06/29/22 10/17/22 History Atorvastatin [Lipitor] 80 mg PO DAILY 06/29/22 10/17/22 History Pantoprazole [Protonix] 40 mg PO QAM 06/29/22 10/17/22 History Ticagrelor [Brilinta] 90 mg PO DAILY 06/29/22 10/17/22 History lisinopriL [Zestril] 10 mg PO DAILY 07/04/22 10/17/22 History Tamsulosin HCl [Flomax] 0.4 mg PO 10/17/22 History HYDROcodone/APAP 5-325MG [[place] 1 each PO Q4HR PRN #18 tab 10/18/22 Rx 5-325] Metoprolol Succinate (ER) [Toprol 25 mg PO DAILY tab 10/18/22 Rx XL] Nicotine 7Mg/24Hr Patch [Habitrol] 1 patch TRANSDERM DAILY patch 10/18/22 Rx Allergies Allergy/AdvReac Type Severity Reaction Status Date / Time levofloxacin [From Levaquin] Allergy Unknown Verified 10/17/22 06:21 pioglitazone [From Actos] Allergy Unknown Verified 10/17/22 06:21 tetracycline [Tetracycline] Allergy Rash/Hives Verified 10/17/22 06:21 Surgical - Exam Vital Signs Temp Pulse Resp BP Pulse Ox 97.0 F L 81 15 140/67 97 10/17/22 06:56 10/17/22 06:56 10/17/22 06:56 10/17/22 06:56 10/17/22 06:56 General: Well developed, well nourished. No acute distress. Chronically ill appearing HEENT: Head is atraumatic, normocephalic. Lungs:Respirations even and nonlabored. On RA Abdomen/GI: Soft.No guarding, rigidity, or abdominal tenderness. : No suprapubic tenderness. Skin: Warm and dry Neurologic: Awake, alert and oriented times 3. CN II-XII grossly intact. No focal deficits. Psychiatric: Appropriate mood and affect. Results - Labs 10/17/22 06:40 10/17/22 07:30 Abnormal Lab Results - Last 24 Hours (Table) 10/17/22 10/17/22 10/18/22 Range/Units 16:29 19:42 06:00 POC Glucose (mg/dL) 228 H 231 H 169 H (70-110) mg/dL 10/18/22 Range/Units 11:32 POC Glucose (mg/dL) 204 H (70-110) mg/dL Assessment and Plan Assessment: The patient's son was present during examination. The patient denies any history of kidney stones, kidney surgeries, bladder surgeries. He states that he has a history of an enlarged prostate and has been taking Flomax for a long time. He denies any dysuria or hematuria. He does have occasional nocturia. He has been unable to urinate since his Moore catheter has been removed requiring straight catheterization. The patient's son states that this has happened a couple times before postoperatively. The patient has just recently been straight catheterized. He was encouraged to increase his fluid intake. He will attempt to void in a couple hours. Nursing staff was instructed to bladder scan. He will either be able to void, or have to be sent home with a Moore catheter. Plan: - Continue Flomax - Discharge home with Moore catheter - Patient's son was instructed to remove Moore catheter 10/20 pm, and patient will follow up with Dr. Stevenson on Saturday 10/21 at 8:50 AM. Impression and plan of care have been directed as dictated by the signing physician. Cony Bell nurse practitioner acting as scribe for signing physician. Cony Bell [facility] Palliative Care/Urology Spectralink [phone] Email: [email or web address] I have personally seen and examined the patient, reviewed the documentation and agree with the assessment and plan as written. Number of minutes spent on the visit: 35. Ton Stevenson MD
[2022-10-18 15:48] VITALS: BP 156/71; PULSE 86; TEMP 98.1
[2022-10-18 16:27] LABS: Glucose,Whole Blood 213 mg/dL (70-110)
[2022-10-18] MEDS ORDERED: ALPRAZolam 0.5 MG TAB PO PRN (17:12)
--- NOTE | 2022-10-18 17:29 | P.CONS ---
History of Present Illness - Reason for Consult Consult date: 10/17/22 - History of Present Illness Sumit Yang, is a 62-year-old male who was admitted to [facility] by Dr. Espinosa and underwent left femoral popliteal bypass graft surgery due to left superficial femoral artery occlusion. Patient was admitted to medical floor post surgery consultation was requested for medical management while hospitalized. 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 Zavala, history of bipolar disorder, history of gastroesophageal reflux disease, and history of tobacco a buse. On review of systems patient is alert and oriented 3 in no apparent distress there is no fever or chills no headache or dizziness no chest pain no shortness of breath no cough no nausea or vomiting no abdominal pain no diarrhea no blood in the stools no burning with urination no frequency or urgency no hematuria. Past Medical History Past Medical History: Cancer, CVA/TIA, Diabetes Mellitus, Hyperlipidemia, Hypertension, Thyroid Disorder, Vascular Disorder Additional Past Medical History / Comment(s): Current pain in calves. 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 No residual effects from CVA. Hx skin and throat cancer. Hx pancreatitis in 2012. "abdominal pain and nausea from medications, better since taking Pantoprazole". 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, colonoscopy, AAA REPAIR.rt carotid endartectomy 07/2022 Past Anesthesia/Blood Transfusion Reactions: No Reported Reaction Smoking Status: Former smoker - Past Family History Mother Family Medical History: No Reported History Medications and Allergies Home Medications Medication Instructions Recorded Confirmed Type Levothyroxine Sodium [Synthroid] 25 mcg PO QAM 08/07/19 10/17/22 History glipiZIDE [Glucotrol] 5 mg PO TID 08/07/19 10/17/22 History ALPRAZolam [Xanax] 0.5 mg PO DAILY 05/04/22 10/17/22 History Divalproex ER [Depakote ER] 500 mg PO BID 05/04/22 10/17/22 History Melatonin [Melatonin Dissolving 10 mg PO HS 05/04/22 10/17/22 History Tablet] buPROPion XL [Wellbutrin XL] 300 mg PO QAM 05/04/22 10/17/22 History metFORMIN HCL 1,000 mg PO BID 05/04/22 10/17/22 History Aspirin 81 mg PO DAILY 06/29/22 10/17/22 History Atorvastatin [Lipitor] 80 mg PO DAILY 06/29/22 10/17/22 History Pantoprazole [Protonix] 40 mg PO QAM 06/29/22 10/17/22 History Ticagrelor [Brilinta] 90 mg PO DAILY 06/29/22 10/17/22 History lisinopriL [Zestril] 10 mg PO DAILY 07/04/22 10/17/22 History Tamsulosin HCl [Flomax] 0.4 mg PO 10/17/22 History HYDROcodone/APAP 5-325MG [[place] 1 each PO Q4HR PRN #18 tab 10/18/22 Rx 5-325] Metoprolol Succinate (ER) [Toprol 25 mg PO DAILY tab 10/18/22 Rx XL] Nicotine 7Mg/24Hr Patch [Habitrol] 1 patch TRANSDERM DAILY patch 10/18/22 Rx Allergies Allergy/AdvReac Type Severity Reaction Status Date / Time levofloxacin [From Levaquin] Allergy Unknown Verified 10/17/22 06:21 pioglitazone [From Actos] Allergy Unknown Verified 10/17/22 06:21 tetracycline [Tetracycline] Allergy Rash/Hives Verified 10/17/22 06:21 Physical Exam Vitals: Vital Signs Temp Pulse Resp BP BP Pulse Ox 10/17/22 14:27 96 16 149/63 98 10/17/22 13:53 96 16 135/62 98 10/17/22 13:30 99 16 135/69 98 10/17/22 13:03 97 16 117/57 98 10/17/22 12:30 97 16 122/57 98 10/17/22 12:15 102 H 16 123/58 100 10/17/22 12:00 98 16 143/64 99 10/17/22 11:45 94 16 153/70 92 L 10/17/22 11:30 93 16 165/77 100 01/16/23 11:15 85 16 186/86 100 10/17/22 11:00 83 16 189/87 100 10/17/22 10:45 82 16 176/84 100 10/17/22 10:31 97.1 F L 97 16 177/75 100 10/17/22 07:15 70 15 138/70 97 10/17/22 06:56 97.0 F L 81 15 81/49 140/67 97 Intake and Output 10/16/22 10/17/22 10/17/22 22:59 06:59 14:59 Intake Total 150 2202 Output Total 550 Balance 150 1652 Intake: IV 150 2202 Output: Urine 500 Estimated Blood Loss 50 Other: Weight 80.9 kg In general patient is alert and oriented x 3 in no distress HEENT head normocephalic and atraumatic Neck is supple no JVD no goiter no lymphadenopathy no carotid bruit Chest examination is clear to auscultation no crackles no wheezing Cardiac exam reveals regular heart sounds S1 and S2 no gallops no murmurs Abdomen is soft nontender no organomegaly with normal bowel sounds Extremity exam reveals no edema no cyanosis or clubbing Neurological examination reveals no gross focal deficits Results CBC & Chem 7: 10/17/22 06:40 10/17/22 07:30 Labs: Abnormal Lab Results - Last 24 Hours (Table) 10/17/22 10/17/22 10/17/22 Range/Units 06:40 06:48 07:30 RBC 3.91 L (4.30-5.90) m/uL Hct 38.0 L (39.0-53.0) % Sodium 131 L (137-145) mmol/L Chloride 97 L (98-107) mmol/L BUN 8 L (9-20) mg/dL Glucose 131 H (74-99) mg/dL POC Glucose (mg/dL) 140 H (70-110) mg/dL 10/17/22 Range/Units 10:38 RBC (4.30-5.90) m/uL Hct (39.0-53.0) % Sodium (137-145) mmol/L Chloride (98-107) mmol/L BUN (9-20) mg/dL Glucose (74-99) mg/dL POC Glucose (mg/dL) 193 H (70-110) mg/dL Assessment and Plan Plan: Superficial femoral artery occlusion status post left femoral-popliteal bypass g raft surgery Underlying history of hypertension Underlying history of hypothyroidism Underlying history of benign prostatic hypertrophy Underlying history of gzr-gfapycy-yrdkjwfcv diabetes mellitus Underlying history of bipolar disorder with anxiety Underlying history of tobacco abuse At this time patient was seen and examined on the medical floor Home medications reviewed and reordered Patient was counseled to quit smoking Pain medications and DVT prophylaxis per surgical protocol Will follow during this admission
--- NOTE | 2022-10-18 17:32 | P.PN ---
Subjective Progress Note Date: 10/18/22 Sumit Yang, is a 62-year-old male who was admitted to [facility] by Dr. Espinosa and underwent left femoral popliteal bypass graft surgery due to left superficial femoral artery occlusion. Patient was admitted to medical floor post surgery consultation was requested for medical management while hospitalized. 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 Zavala, history of bipolar disorder, history of gastroesophageal reflux disease, and history of tobacco abuse. On review of systems patient is alert and oriented 3 in no apparent distress there is no fever or chills no headache or dizziness no chest pain no shortness of breath no cough no nausea or vomiting no abdominal pain no diarrhea no blood in the stools no burning with urination no frequency or urgency no hematuria.. On 10/18/2022 patient was seen and examined on the medical floor he is alert and oriented 3 in no apparent distress there is no fever or chills no headache or dizziness no chest pain no shortness of breath no cough no nausea or vomiting no abdominal pain no diarrhea and no blood in the stools, patient was having symptoms of urinary retention, he was cleared for discharge by surgery, he will have a Moore catheter in, we will continue to use Flomax he will follow-up with neurology on Monday. Objective - Vital Signs Vital signs: Vital Signs Temp 98.1 F 10/18/22 15:42 Pulse 86 10/18/22 15:42 Resp 16 10/18/22 15:42 BP 156/71 10/18/22 15:42 Pulse Ox 99 10/18/22 15:42 FiO2 Intake & Output 10/17/22 10/18/22 10/18/22 18:59 06:59 18:59 Intake Total 2202 506 Output Total 132 840 9669 Balance 1402 -825 -604 Intake: IV 2202 Oral 506 Output: Urine 401 941 2466 Straight 825 800 Estimated Blood Loss 50 Other: Voiding Method Urinal Urinal # Voids 1 - Exam In general patient is alert and oriented x 3 in no distress HEENT head normocephalic and atraumatic Neck is supple no JVD no goiter no lymphadenopathy no carotid bruit Chest examination is clear to auscultation no crackles no wheezing Cardiac exam reveals regular heart sounds S1 and S2 no gallops no murmurs Abdomen is soft nontender no organomegaly with normal bowel sounds Extremity exam reveals no edema no cyanosis or clubbing Neurological examination reveals no gross focal deficits - Labs CBC & Chem 7: 10/17/22 06:40 10/17/22 07:30 Labs: Abnormal Lab Results - Last 24 Hours (Table) 10/17/22 10/18/22 10/18/22 Range/Units 19:42 06:00 11:32 POC Glucose (mg/dL) 231 H 169 H 204 H (70-110) mg/dL 10/18/22 Range/Units 16:26 POC Glucose (mg/dL) 213 H (70-110) mg/dL Assessment and Plan Plan: Superficial femoral artery occlusion status post left femoral-popliteal bypass graft surgery Underlying history of hypertension Underlying history of hypothyroidism Underlying history of benign prostatic hypertrophy Underlying history of [id number] diabetes mellitus Underlying history of bipolar disorder with anxiety Underlying history of tobacco abuse Plan by surgery is for discharge to home today Continue home medications as prior to admission Pain medication prescription was given by surgery Patient will have Moore catheter in not the time of discharge he will continue to use Flomax and follow-up with urology on Monday He was instructed to call our office for any medication needs
[2022-10-18] MEDS: TAMSULOSIN 0.4 MG CAP.ER.24H PO SCH (18:08)
[2022-10-18] MEDS ORDERED: TAMSULOSIN 0.4 MG CAP.ER.24H PO SCH (20:00)
== END 2022-10-18 18:25 | disposition home health service (06) | DRG 254 ==
LOC: 2ORMAIN 05:54 → 3SCARD 13:40
PROVIDERS: ADMIT Surgery; ATTEND Surgery
PROC: 041L0JL Bypass Left Femoral Artery to Popliteal Artery with Synthetic Substitute, Open Approach (ICD-10-PCS; principal; 2022-10-17 07:30)
DX: E11.51 Type 2 diabetes mellitus with diabetic peripheral angiopathy without gangrene (principal); E03.9 Hypothyroidism, unspecified; F31.9 Bipolar disorder, unspecified; I70.212 Atherosclerosis of native arteries of extremities with intermittent claudication, left leg; I10 Essential (primary) hypertension; N40.1 Benign prostatic hyperplasia with lower urinary tract symptoms; R33.8 Other retention of urine; F41.9 Anxiety disorder, unspecified; E78.5 Hyperlipidemia, unspecified; R35.1 Nocturia; Z87.891 Personal history of nicotine dependence; Z79.84 Long term (current) use of oral hypoglycemic drugs; Z79.890 Hormone replacement therapy; Z79.82 Long term (current) use of aspirin; Z79.899 Other long term (current) drug therapy; Z79.02 Long term (current) use of antithrombotics/antiplatelets; Z88.8 Allergy status to other drugs, medicaments and biological substances; Z88.1 Allergy status to other antibiotic agents; Z85.828 Personal history of other malignant neoplasm of skin; Z86.73 Personal history of transient ischemic attack (TIA), and cerebral infarction without residual deficits; Z85.819 Personal history of malignant neoplasm of unspecified site of lip, oral cavity, and pharynx; Z86.79 Personal history of other diseases of the circulatory system
CPT/HCPCS: 80048; 85027; 85610; 85730

== ENCOUNTER 2023-01-05 05:48 | Inpatient (IN) | payer MEDICARE, BC ==
[~2023-01-05 05:48] MED LIST changes: +ENOXAPARIN 30 MG/0.3 ML SYRINGE SQ PRN; -HYDROmorphone 0.5 MG/0.5 ML SYRINGE IVP PRN; -LACTATED RINGERS 1,000 ML IV SCH; -LIDOCAINE 1% (10MG/ML) FOR IV START INTRADERMA PRN; -ONDANSETRON 4 MG/2 ML VIAL IVP ONE
[2023-01-05] MEDS ORDERED: LACTATED RINGERS 1,000 ML IV SCH (06:07)
[2023-01-05] MEDS ORDERED: ONDANSETRON 4 MG/2 ML VIAL ONE (06:28)
[2023-01-05 06:36] LABS: Glucose,Whole Blood 153 mg/dL (70-110)
[2023-01-05] MEDS ORDERED: DEXAMETHASONE SOD PHOSPHATE 4 MG/ML 1 ML VIAL IVP ONE (06:52)
[2023-01-05] MEDS ORDERED: MIDAZOLAM 2 MG/2 ML VIAL IVP ONE (06:57)
[2023-01-05] MEDS ORDERED: PROTAMINE SULFATE 10 MG/ML 5 ML VIAL IV ONE (07:05)
[2023-01-05] MEDS ORDERED: ETOMIDATE 2 MG/ML 10 ML VIAL ONE (07:05)
[2023-01-05] MEDS ORDERED: METOPROLOL TARTRATE 5 MG/5 ML VIAL IVP ONE (07:05)
[2023-01-05] MEDS ORDERED: PHENYLEPHRINE-0.9% NACL SYG 1,000 MCG/10 ML SYRINGE ONE (07:05)
[2023-01-05] MEDS ORDERED: GLYCOPYRROLATE 0.2 MG/ML 2 ML VIAL ONE (07:05)
[2023-01-05] MEDS ORDERED: LABETALOL 5 MG/ML VIAL MDV ONE (07:05)
[2023-01-05] MEDS ORDERED: NEOSTIGMINE 1 MG/ML 10 ML VIAL ONE (07:05)
[2023-01-05] MEDS ORDERED: HEPARIN SODIUM,PORCINE 10,000 UNIT/ML 1 ML VIAL ONE (07:05)
[2023-01-05] MEDS ORDERED: ROCURONIUM 10 MG/ML (5 ML VIAL) IV ONE (07:05)
[2023-01-05] MEDS ORDERED: hydrALAZINE HCL 20 MG/ML 1 ML VIAL ONE (07:05)
[2023-01-05] MEDS ORDERED: SUCCINYLCHOLINE CHLORIDE 200 MG/10 ML VIAL IV ONE (07:05)
[2023-01-05] MEDS ORDERED: SODIUM BICARB 8.4% 50 ML SYR (1 MEQ/ML) ONE (07:05)
[2023-01-05] MEDS ORDERED: fentaNYL (PF) 50 MCG/ML 2 ML AMP ONE (07:05)
[2023-01-05] MEDS ORDERED: LIDOCAINE 2% INJ 20 MG/ML (2 ML VIAL) ONE (07:05)
[2023-01-05] MEDS ORDERED: MIDAZOLAM 2 MG/2 ML VIAL ONE (07:05)
[2023-01-05] MEDS ORDERED: HEPARIN SODIUM (1,000 UNIT/ML) 10,000 UNIT in SODIUM CHLORIDE 0.9% 1,000 ML IRRIGATION ONE (08:12)
[2023-01-05] MEDS ORDERED: ceFAZolin 4,000 MG in SODIUM CHLORIDE 0.9% 1,000 ML IRRIGATION ONE (08:13)
[2023-01-05 08:14] LABS: Allen Test Performed? Yes
[2023-01-05] MEDS ORDERED: THROMBIN (BOVINE) 5,000 UNIT VIAL TOPICAL ONE (08:14)
[2023-01-05] MEDS ORDERED: GELATIN SPONGE,ABSORB (LARGE) 1 EACH SPONGE TOPICAL ONE (08:15)
[2023-01-05 08:16] LABS: HCT 34.9 % (39.0-53.0); HGB 11.9 gm/dL (13.0-17.5); MCH 32.8 pg (25.0-35.0); MCHC 34.1 g/dL (31.0-37.0); MCV 96.1 fL (80.0-100.0); Mean Platelet Volume 7.6; Platelet Count 250 k/uL (150-450); RBC 3.63 m/uL (4.30-5.90); RDW 13.9 % (11.5-15.5); WBC 6.3 k/uL (3.8-10.6)
[2023-01-05 08:18] LABS: ABG Base Excess -9.2 mmol/L; ABG HCO3 15 mmol/L (21-25); ABG Oxygen Saturation 99.3 % (94-97); ABG PCO2 26 mmHg (35-45); ABG PH 7.37 (7.35-7.45); ABG PO2 233 mmHg (83-108)
[2023-01-05] MEDS ORDERED: LACTATED RINGERS 1,000 ML IV ONE (08:41)
[2023-01-05 09:06] LABS: ALT 20 U/L (4-49); AST 24 U/L (17-59); African American GFR (CKD) >90 (>60 ml/min/1.73 sqM); Albumin 3.2 g/dL (3.5-5.0); Alkaline Phosphatase 44 U/L (38-126); Anion Gap 9 mmol/L; Blood Urea Nitrogen 7 mg/dL (9-20); Calcium 8.3 mg/dL (8.4-10.2); Carbon Dioxide 25 mmol/L (22-30); Chloride 99 mmol/L (98-107); Glucose 138 mg/dL (74-99); Non-African American GFR(CKD) >90 (>60 ml/min/1.73 sqM); Potassium 5.5 mmol/L (3.5-5.1); Sodium 133 mmol/L (137-145); Total Bilirubin 0.4 mg/dL (0.2-1.3); Total Protein 5.8 g/dL (6.3-8.2)
[2023-01-05 09:07] LABS: Glucose,Whole Blood 172 mg/dL (70-110)
[2023-01-05] MEDS ORDERED: MORPHINE SULFATE 2 MG/ML SYRINGE IVP PRN (10:25)
[2023-01-05] MEDS ORDERED: ACETAMINOPHEN TAB 325 MG TAB PO PRN (10:25)
--- NOTE | 2023-01-05 10:25 | P.OP ---
Date of Procedure: 01/05/23 Preoperative Diagnosis: Right femoral occlusion with secondary lifestyle limiting right calf claudication. Postoperative Diagnosis: Same. Procedure(s) Performed: Right femoral to above-knee popliteal bypass graft utilizing 8 mm PTFE. Right common femoral thromboendarterectomy. Anesthesia: GETA Surgeon: Mauro Garcia Estimated Blood Loss (ml): 50 Pathology: other (Right femoral plaque.) Condition: stable Disposition: PACU Indications for Procedure: Patient is a 62-year-old male with a significant history of peripheral vascular disease however undergone abdominal aortic aneurysm repair as well as a carotid endarterectomy, left femoral to popliteal bypass graft who continues to claudicate in the right lower extremity at the calf level. Workup demonstrated a right SFA occlusion which was not felt to be appropriate for percutaneous repair. The patient was offered a femoral-popliteal bypass graft, similar to the procedure performed on the contralateral lower extremity. The procedure, risk and benefits were discussed. All questions answered to patient's satisfact ion. Patient wished to proceed with the procedure. Description of Procedure: Patient is brought the upper and placed in the supine position Mr. general endotracheal anesthesia delivered by the department anesthesiology. Moore catheter is placed to gravity drainage. 2 g of Ancef were administered intravenously for perioperative prophylactic antibiotic therapy. The right lower abdominal area and right lower extremity were sterilely prepped and draped in usual manner. Skin incision was made overlying the common femoral artery on the right. The incision was deepened through the subcutaneous tissues. Hemostasis was achieved using electrocautery. Some scarring of the soft tissues was encountered secondary to the previous angiography as well as percutaneous aneurysm repair. The incision was deepened and the superficial femoral artery was identified, dissected free of investing tissues and encircled Vesseloops. The dissection was then carried cephalad. A high takeoff of the profundus was identified. This artery was encircled Vesseloops after being skeletonized. Finally the dissection was carried down to just above the inguinal ligament where the artery was soft and a palpable pulse was readily identified. This area was dissected free of investing tissues and encircled Vesseloops. Antibiotic soaked gauze was then placed into the wound. Attention was turned to the medial aspect of the distal thigh where a skin incision was made carried down through subcu change tissues. Hemostasis was achieved using electrocautery. Care was taken to avoid the great saphenous vein. Dissection was deepened and entrance was gained into the proximal popliteal space. The distal SFA/proximal popliteal artery was identified dissected free of investing tissues. It was soft and thought to be adequate for outflow purposes. It was then encircled Vesseloops. The wound was packed with antibiotic-soaked gauze. An 8 mm PTFE graft was selected and tunneled between the 2 incisions. The patient was systemically heparinized with 7000 units of heparin and after adequate circulation time ACT is were drawn which demonstrated adequate coagulation. Vesseloops at the femoral level were drawn closed and arteriotomy in the common femoral artery was made and extended cephalad with Pott Paredes scissors to the level of minimal plaque formation. Backbleeding through the profundus was identified and this was flushed with heparinized saline solution. Thromboendarterectomy of the common femoral was then performed. This resulted in improved backbleeding through the profundus and smaller collateral vessels. The PTFE graft was spatulated to match arteriotomy end-to-side anastomosis was created between the graft and the artery with 6-0 Prolene suture. Just prior to completion of the anastomotic line the artery was flushed and no thrombus was retrieved. The anastomotic line was completed and flow restored into the common and profundus femoris segments. Excellent pulsatile flow was identified within the graft and the graft was then occluded. Topical thrombin and Gelfoam were placed about the anastomotic line to help assure hemostasis. One point of b leeding was identified and this was controlled with Prolene suture. The wound was then repacked with antibiotic-soaked gauze. Attention was turned to the distal thigh incision. The Vesseloops surrounding the popliteal artery were drawn closed and arteriotomy was made longitudinally and extended with Pott Paredes scissors. Good backbleeding was identified and the artery was then flushed with heparinized saline solution. The graft was spatulated to match the arteriotomy end-to-side anastomosis was created between the graft and the artery with 6-0 Prolene suture. Just prior to completion of t he anastomotic line the graft was flushed and backbleeding through the popliteal was allowed to occur and no thrombus was retrieved in either situation. The anastomotic line was then completed and flow restored through the graft into the popliteal artery. Excellent pulse within the popliteal artery was identified. 2 areas of anastomotic line leak were identified and these were controlled with Prolene suture. Both wounds were inspected for hemostasis. Hemostasis was judged be adequate. The patient was administered 25 mg protamine to help reverse the heparin effect. Deep tissues were closed with 3-0 Vicryl and dermis was closed with 4-0 Monocryl placed in running intradermal fashion at both wounds. Steri-Strips and appropriate dressings were applied. Patient tolerated the procedure well and was taken to the recovery assessment and stable condition. Palpable dorsalis pedis pulse is identified at the completion of the procedure.
[2023-01-05] MEDS ORDERED: ASPIRIN 325 MG TAB PO SCH (10:30)
[2023-01-05] MEDS: HYDROmorphone 0.5 MG/0.5 ML SYRINGE IVP PRN ×2 (11:02→17:07)
[2023-01-05] MEDS ORDERED: glipiZIDE 5 MG TAB PO PRN (11:10)
[2023-01-05] MEDS ORDERED: HYDROcodone/APAP 7.5-325MG 1 EACH TAB PO PRN (11:10)
[2023-01-05 11:17] LABS: Glucose,Whole Blood 206 mg/dL (70-110)
[2023-01-05 13:43] LABS: Glucose,Whole Blood 200 mg/dL (70-110)
[2023-01-05] MEDS: HYDROcodone/APAP 5-325MG 1 EACH TAB PO PRN (14:05)
[2023-01-05] MEDS: DIVALPROEX ER 500 MG TAB.ER.24H PO SCH ×2 (14:05→20:50)
[2023-01-05] MEDS: lisinopriL 20 MG TAB PO SCH (14:05)
[2023-01-05] MEDS: NICOTINE 7MG/24HR PATCH TRANSDERM SCH (14:06)
[2023-01-05] MEDS ORDERED: DEXTROSE 50% SYRINGE 50 ML IVP PRN ×2 (14:37)
[2023-01-05 16:25] LABS: Glucose,Whole Blood 313 mg/dL (70-110)
[2023-01-05 16:25] LABS: Glucose,Whole Blood 297 mg/dL (70-110)
[2023-01-05] MEDS: metFORMIN 500 MG TAB PO SCH (17:06)
[2023-01-05] MEDS: INSULIN ASPART (NovoLOG) 100 UNIT/ML VIAL SQ SCH ×2 (17:07→20:52)
[2023-01-05 18:41] LABS: Potassium 5.3 mmol/L (3.5-5.1)
[2023-01-05 20:32] LABS: Glucose,Whole Blood 399 mg/dL (70-110)
[2023-01-05] MEDS ORDERED: MELATONIN 5 MG TABLET PO SCH (21:00)
[2023-01-05] MEDS ORDERED: ATORVASTATIN 80 MG TAB PO SCH (21:00)
[2023-01-05] MEDS ORDERED: ALPRAZolam 0.5 MG TAB PO SCH (21:00)
--- NOTE | 2023-01-06 00:01 | CONS ---
CONSULTATION REASON FOR CONSULTATION: Advice regarding diabetes mellitus and other medical issues, requested by Vascular Surgery. HISTORY OF PRESENT ILLNESS: This is a 62-year-old gentleman with a past medical history of diabetes, hypertension, hyperlipidemia, underwent right femoral to above knee popliteal bypass graft and also has right common femoral thromboendarterectomy by Dr. Espinosa. There is no history of any chest pain, palpitation, shortness of breath, or cough at this time. PAST MEDICAL HISTORY: Reviewed include diabetes, hypertension, hyperlipidemia. Rest of the history and rest of the chart is reviewed. HOME MEDICATIONS: Reviewed include metformin, doses and rest of medication noted. ALLERGIES: Tetracycline. FAMILY HISTORY: History of myocardial infarction. SOCIAL HISTORY: Previous history of smoking. REVIEW OF SYSTEMS: A 14-point review is negative except as mentioned earlier. PHYSICAL EXAMINATION: VITAL SIGNS: Pulse 87, blood pressure 130/70, respirations 16. HEENT: Conjunctivae normal. NECK: No JVD. CARDIOVASCULAR: S1, S2 muffled. RESPIRATIONS: Breath sounds diminished at the bases. No rhonchi. No crackles. ABDOMEN: Soft, nontender. LEGS: Status post surgery. NERVOUS SYSTEM: Nonfocal. LABORATORY DATA: Reviewed. Sodium 130, potassium 5.8. ASSESSMENT: 1. Status post right femoral above knee popliteal bypass graft and right common femoral thromboendarterectomy. 2. Diabetes mellitus, type 2. 3. Mild hyperkalemia. 4. History of hypertension. 5. Hyperlipidemia. 6. Multiple medical issues. RECOMMENDATIONS AND DISCUSSION: This is a 62-year-old gentleman, who presented with multiple complex medical issues. We will monitor the patient closely. We will recommend to resume the home medications and monitor blood sugars closely. Recommend repeat lytes and monitor potassium. Otherwise, we will follow the patient closely with you and the patient may be asked to follow with Dr. Eaton after discharge. MMODL / IJN: [id number] /
[2023-01-06 06:27] LABS: Glucose,Whole Blood 156 mg/dL (70-110)
[2023-01-06] MEDS ORDERED: LEVOTHYROXINE 25 MCG TAB PO SCH (06:30)
[2023-01-06] MEDS: INSULIN ASPART (NovoLOG) 100 UNIT/ML VIAL SQ SCH ×2 (06:42→12:25)
[2023-01-06] MEDS: metFORMIN 500 MG TAB PO SCH (06:42)
[2023-01-06] MEDS: HYDROcodone/APAP 5-325MG 1 EACH TAB PO PRN ×2 (06:44→11:50)
[2023-01-06] MEDS ORDERED: PANTOPRAZOLE 40 MG TABLET PO SCH (07:30)
[2023-01-06 07:42] LABS: Basophils % (A) 0 %; Eosinophils # (A) 0.1 k/uL (0-0.7); Eosinophils % (A) 1 %; HCT 29.1 % (39.0-53.0); Lymphocytes # (A) 2.1 k/uL (1.0-4.8); Lymphocytes % (A) 21 %; MCH 32.9 pg (25.0-35.0); MCHC 34.3 g/dL (31.0-37.0); MCV 95.9 fL (80.0-100.0); Mean Platelet Volume 7.9; Monocytes % (A) 10 %; Neutrophils # (A) 6.6 k/uL (1.3-7.7); Neutrophils % (A) 66 %; Platelet Count 215 k/uL (150-450); RBC 3.04 m/uL (4.30-5.90); RDW 14.3 % (11.5-15.5)
[2023-01-06 08:03] LABS: African American GFR (CKD) >90 (>60 ml/min/1.73 sqM); Anion Gap 8 mmol/L; Blood Urea Nitrogen 9 mg/dL (9-20); Calcium 8.4 mg/dL (8.4-10.2); Carbon Dioxide 28 mmol/L (22-30); Chloride 93 mmol/L (98-107); Glucose 98 mg/dL (74-99); Non-African American GFR(CKD) >90 (>60 ml/min/1.73 sqM); Potassium 4.5 mmol/L (3.5-5.1); Sodium 129 mmol/L (137-145)
[2023-01-06] MEDS ORDERED: TAMSULOSIN 0.4 MG CAP.ER.24H PO SCH (09:00)
[2023-01-06] MEDS ORDERED: TICAGRELOR 90 MG TAB PO SCH (09:00)
[2023-01-06] MEDS ORDERED: METOPROLOL SUCCINATE (ER) 25 MG TAB.ER.24H PO SCH (09:00)
[2023-01-06] MEDS ORDERED: ASPIRIN 81 MG PO SCH (09:00)
[2023-01-06] MEDS: DIVALPROEX ER 500 MG TAB.ER.24H PO SCH (09:45)
[2023-01-06] MEDS: lisinopriL 20 MG TAB PO SCH (09:45)
[2023-01-06] MEDS: NICOTINE 7MG/24HR PATCH TRANSDERM SCH (09:46)
[2023-01-06 11:40] VITALS: BP 151/68; PULSE 85; RESP 16; TEMP 97.6
[2023-01-06] MEDS ORDERED: TAMSULOSIN 0.4 MG CAP.ER.24H PO STA (11:53)
[2023-01-06 12:13] LABS: Glucose,Whole Blood 168 mg/dL (70-110)
--- NOTE | 2023-01-06 13:16 | P.GSCN ---
History of Present Illness Consult date: 01/13/23 Reason for Consult: BPH History of present illness: This is a 62-year-old male status post Right femoral to above-knee popliteal bypass graft utilizing 8 mm PTFE, Right common femoral thromboendarterectomy. Developed urinary retention postoperatively, has required straight cath 2. His postvoid residual was persistently elevated after straight cath at 625 mL's. He did develop retention postoperatively back in October after his surgery. At baseline denies any voiding dysfunction, he is on Flomax which was started by Dr. Eaton. Denies any dysuria or gross hematuria. Review of Systems - Constitutional Denies chills, Denies fever - EENT Ears, nose, mouth and throat: Denies dysphagia - Cardiovascular Denies chest pain, Denies shortness of breath - Respiratory Denies cough, Denies 7 - Gastrointestinal Reports as per HPI - Genitourinary Reports urinary retention, Denies dysuria, Denies flank pain - Neurological Denies headaches, Denies syncope Past Medical History Past Medical History: Cancer, CVA/TIA, Diabetes Mellitus, Hyperlipidemia, Hypertension, Thyroid Disorder, Vascular Disorder Additional Past Medical History / Comment(s): Current pain in calves. 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 No residual effects from CVA. Hx skin and throat cance r. Hx pancreatitis in 2012. "abdominal pain and nausea from medications, better since taking Pantoprazole". 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 Smoking Status: Former smoker Additional Past Alcohol Use History / Comment(s): Smoked on and off for many years, currently less than 1/2 pp'day. Used to drink 3 beers nightly, now has 1 every other day. Additional Drug Use History / Comment(s): MARIJUANA USE OCCASSIONALLY-INSTRUCTED TO REFRAIN FROM USE FOR AT LEAST 24 HOURS PRIOR TO PROCEDURE. - Past Family History Mother Family Medical History: CVA/TIA Father Family Medical History: Myocardial Infarction (CT) Additional Family Medical History / Comment(s): CT in 50's. Medications and Allergies Home Medications Medication Instructions Recorded Confirmed Type RX: Levothyroxine Sodium 25 mcg PO QAM 08/07/19 01/05/23 History [Synthroid] RX: glipiZIDE [Glucotrol] 5 mg PO TID PRN 08/07/19 01/05/23 History RX: ALPRAZolam [Xanax] 0.5 mg PO HS 05/04/22 01/05/23 History RX: Divalproex ER [Depakote ER] 500 mg PO BID 05/04/22 01/05/23 History RX: Melatonin [Melatonin 10 mg PO HS 05/04/22 01/05/23 History Dissolving Tablet] RX: metFORMIN HCL 1,000 mg PO BID 05/04/22 01/05/23 History RX: Aspirin 81 mg PO QAM 06/29/22 01/05/23 History RX: Atorvastatin [Lipitor] 80 mg PO 06/29/22 01/05/23 History RX: Pantoprazole [Protonix] 40 mg PO QAM 06/29/22 01/05/23 History RX: Ticagrelor [Brilinta] 90 mg PO QAM 06/29/22 01/05/23 History RX: lisinopriL [Zestril] 20 mg PO QAM 07/04/22 01/05/23 History RX: Tamsulosin HCl [Flomax] 0.4 mg PO QAM 10/17/22 01/05/23 History Hydrocodone/Acetaminophen 1 tab PO Q8H PRN 01/03/23 01/05/23 History [Hydrocodone/Acetaminophen 7.5-325] RX: Metoprolol Succinate (ER) 25 mg PO QAM 01/03/23 01/05/23 History [Toprol XL] RX: Nicotine 7Mg/24Hr Patch 1 patch TRANSDERM QA 01/03/23 01/05/23 History [Habitrol] Allergies Allergy/AdvReac Type Severity Reaction Status Date / Time tetracycline [Tetracycline] Allergy Rash/Hives Verified 01/05/23 06:25 Surgical - Exam Vital Signs Temp Pulse Resp BP Pulse Ox 97.0 F L 81 16 142/67 97 01/05/23 06:45 01/05/23 06:45 01/05/23 06:45 01/05/23 06:45 01/05/23 06:45 - General no distress, no pain - Eyes normal ocular movement, no pale - ENT normal nares, normal mucosa - Respiratory normal expansion, normal respiratory effort - Abdomen Abdomen: soft, non tender - Psychiatric oriented to time, oriented to person, oriented to place Results - Labs 01/06/23 06:18 01/06/23 06:18 Abnormal Lab Results - Last 24 Hours (Table) 01/05/23 01/05/23 01/05/23 Range/Units 08:00 13:42 16:22 RBC (4.30-5.90) m/uL Hgb (13.0-17.5) gm/dL Hct (39.0-53.0) % Sodium (137-145) mmol/L Potassium (3.5-5.1) mmol/L Chloride (98-107) mmol/L POC Glucose (mg/dL) 200 H 313 H (70-110) mg/dL Hemoglobin A1c 7.3 H (0.0-6.0) % 01/05/23 01/05/23 01/05/23 Range/Units 16:24 17:39 20:31 RBC (4.30-5.90) m/uL Hgb (13.0-17.5) gm/dL Hct (39.0-53.0) % Sodium 129 L (137-145) mmol/L Potassium 5.3 H (3.5-5.1) mmol/L Chloride 92 L (98-107) mmol/L POC Glucose (mg/dL) 297 H 399 H (70-110) mg/dL Hemoglobin A1c (0.0-6.0) % 01/06/23 01/06/23 01/06/23 Range/Units 06:18 06:18 06:25 RBC 3.04 L (4.30-5.90) m/uL Hgb 10.0 L D (13.0-17.5) gm/dL Hct 29.1 L (39.0-53.0) % Sodium 129 L (137-145) mmol/L Potassium (3.5-5.1) mmol/L Chloride 93 L (98-107) mmol/L POC Glucose (mg/dL) 156 H (70-110) mg/dL Hemoglobin A1c (0.0-6.0) % 01/06/23 Range/Units 12:05 RBC (4.30-5.90) m/uL Hgb (13.0-17.5) gm/dL Hct (39.0-53.0) % Sodium (137-145) mmol/L Potassium (3.5-5.1) mmol/L Chloride (98-107) mmol/L POC Glucose (mg/dL) 168 H (70-110) mg/dL Hemoglobin A1c (0.0-6.0) % Diabetes panel 01/05/23 01/05/23 01/06/23 Range/Units 08:00 17:39 06:18 Sodium 129 L 129 L (137-145) mmol/L Potassium 5.3 H 4.5 (3.5-5.1) mmol/L Chloride 92 L 93 L (98-107) mmol/L Carbon Dioxide 24 28 (22-30) mmol/L BUN 9 (9-20) mg/dL Creatinine 0.75 (0.66-1.25) mg/dL Glucose 98 (74-99) mg/dL Hemoglobin A1c 7.3 H (0.0-6.0) % Calcium 8.4 (8.4-10.2) mg/dL Calcium panel 01/06/23 Range/Units 06:18 Calcium 8.4 (8.4-10.2) mg/dL Pituitary panel 01/05/23 01/06/23 Range/Units 17:39 06:18 Sodium 129 L 129 L (137-145) mmol/L Potassium 5.3 H 4.5 (3.5-5.1) mmol/L Chloride 92 L 93 L (98-107) mmol/L Carbon Dioxide 24 28 (22-30) mmol/L BUN 9 (9-20) mg/dL Creatinine 0.75 (0.66-1.25) mg/dL Glucose 98 (74-99) mg/dL Calcium 8.4 (8.4-10.2) mg/dL Adrenal panel 01/05/23 01/06/23 Range/Units 17:39 06:18 Sodium 129 L 129 L (137-145) mmol/L Potassium 5.3 H 4.5 (3.5-5.1) mmol/L Chloride 92 L 93 L (98-107) mmol/L Carbon Dioxide 24 28 (22-30) mmol/L BUN 9 (9-20) mg/dL Creatinine 0.75 (0.66-1.25) mg/dL Glucose 98 (74-99) mg/dL Calcium 8.4 (8.4-10.2) mg/dL Assessment and Plan Assessment: 62-year-old male with history of BPH on Flomax at baseline. Developed postoperative urinary retention history of urinary retention postoperatively. M ost likely his retention secondary to underlying BPH worsened by recent surgery. At this point recommend discharging home with a Moore catheter, can follow-up for trial of void 1 week from now. Advised patient to remove the catheter 6 hours prior to his follow-up. Recommend increasing Flomax dose to twice a day until retention resolves
--- NOTE | 2023-01-06 13:31 | P.DS ---
Providers Date of admission: 01/05/23 05:48 Expected date of discharge: 01/06/23 Attending physician: Mauro Garcia DO Consults: 01/05/23 10:32 Consult Physician Routine Consulting Provider: Marin Eaton Consult Reason/Comments: Medical mgt Do you want consulting provider notified?: Yes 01/06/23 07:43 Consult Physician Urgent Consulting Provider: Ton Stevenson Consult Reason/Comments: Post op urinary retention,hx of post op urinary retention Do you want consulting provider notified?: Yes Primary care physician: [facility] Course: 62-year-old male with a significant history of peripheral arterial disease presented for femoral popliteal bypass graft. He is postop day #1 for right femoral to above-knee popliteal bypass graft and right common femoral thrombo- endarterectomy. Today he is seen and evaluated, states that pain is improved. Patient has had postop urinary retention and has required straight catheterization 2. Urology consulted and recommending indwelling Moore catheter and patient to be discharged and follow-up within 1 week. Patient's been up and ambulating. He is eating a regular diet. Denies any shortness of breath or chest pain. No bleeding from surgical sites. Exam: General appearance: The patient is alert, oriented, appears in no acute distress. HET: Head is normocephalic and atraumatic. Pupils are equal and reactive. Neck: Supple without lymphadenopathy. Trachea midline. No audible carotid bruit. Heart: Regular. Lungs: Equal expansion, normal respiratory effort. Abdomen: Soft, nontender, nondistended. Extremities: Normal skin color and turgor. Right lower extremity groin incision site with dressing clean dry and intact, no palpable hematoma surrounding, right lower extremity incision with dressing clean dry and intact. Palpable DP and PT pulse. Sensorimotor intact. Neurological: No focal deficits. Strength and sensation are grossly intact. Assessment Right femoral occlusion with secondary lifestyle limiting right calf claudication status post right femoral to above-knee popliteal bypass and right common femoral thromboendarterectomy Patient was seen and examined by Dr. Lane. He is cleared for discharge. The impression and plan of care has been dictated as directed. Dr. Lane I performed a history and examination of this patient, discussed the same with the dictator. I agree with the dictator's note ,documented as a scribe. Any additional findings or plans will be noted. Procedures: Right femoral to above-knee popliteal bypass graft utilizing 8 mm PTFE Right common femoral thromboendarterectomy Patient Condition at Discharge: Stable Plan - Discharge Summary Discharge Rx Participant: No New Discharge Prescriptions: New Tamsulosin [Flomax] 0.4 mg PO BID #60 cap Continue glipiZIDE [Glucotrol] 5 mg PO TID PRN PRN Reason: IF CBG > 200 Levothyroxine Sodium [Synthroid] 25 mcg PO QAM Divalproex ER [Depakote ER] 500 mg PO BID ALPRAZolam [Xanax] 0.5 mg PO HS Pantoprazole [Protonix] 40 mg PO QAM lisinopriL [Zestril] 20 mg PO QAM Hydrocodone/Acetaminophen [Hydrocodone/Acetaminophen 7.5-325] 1 tab PO Q8H PRN PRN Reason: Pain Metoprolol Succinate (ER) [Toprol XL] 25 mg PO QAM metFORMIN HCL 1,000 mg PO BID Melatonin [Melatonin Dissolving Tablet] 10 mg PO HS Ticagrelor [Brilinta] 90 mg PO QAM Atorvastatin [Lipitor] 80 mg PO HS Aspirin 81 mg PO QAM Nicotine 7Mg/24Hr Patch [Habitrol] 1 patch TRANSDERM QAM Discontinued Tamsulosin HCl [Flomax] 0.4 mg PO QAM Discharge Medication List Levothyroxine Sodium [Synthroid] 25 mcg PO QAM 08/07/19 [History] glipiZIDE [Glucotrol] 5 mg PO TID PRN 08/07/19 [History] ALPRAZolam [Xanax] 0.5 mg PO HS 05/04/22 [History] Divalproex ER [Depakote ER] 500 mg PO BID 05/04/22 [History] Melatonin [Melatonin Dissolving Tablet] 10 mg PO HS 05/04/22 [History] metFORMIN HCL 1,000 mg PO BID 05/04/22 [History] Aspirin 81 mg PO QAM 06/29/22 [History] Atorvastatin [Lipitor] 80 mg PO HS 06/29/22 [History] Pantoprazole [Protonix] 40 mg PO QAM 06/29/22 [History] Ticagrelor [Brilinta] 90 mg PO QAM 06/29/22 [History] lisinopriL [Zestril] 20 mg PO QAM 07/04/22 [History] Hydrocodone/Acetaminophen [Hydrocodone/Acetaminophen 7.5-325] 1 tab PO Q8H PRN 01/03/23 [History] Metoprolol Succinate (ER) [Toprol XL] 25 mg PO QAM 01/03/23 [History] Nicotine 7Mg/24Hr Patch [Habitrol] 1 patch TRANSDERM QAM 01/03/23 [History] Tamsulosin [Flomax] 0.4 mg PO BID #60 cap 01/06/23 [Rx] Follow up Appointment(s)/Referral(s): [facility], [NON-STAFF] - Willy Clifton MD [STAFF PHYSICIAN] - 1 Week Mauro Garcia DO [Doctor of Osteopathic Medicine] - 2 Weeks Activity/Diet/Wound Care/Special Instructions: Discontinue urinary catheter 6hr prior to apt with Dr. Clifton. No driving until cleared by surgeon Avoid heavy lifting greater than 10 lbs , pushing, pulling, straining, flights of stairs for three days. ok to shower tomorrow but no baths, pools, soaking in tubs for three days to avoid risk of infection. signs of infection ie: fever, rash, drainage from puncture site, swelling contact doctor or return to ER immediately. Heavy bleeding from puncture site apply firm direct pressure and return to ER. Do not attempt to drive self. low sodium/low fat diet Discharge Disposition: HOME WITH HOME HEALTH SERVICES
--- NOTE | 2023-01-07 04:10 | PN ---
PROGRESS NOTE DATE OF SERVICE: 01/06/2023 SUBJECTIVE: This is a 62-year-old gentleman who was admitted after vascular surgery is being closely monitored. No chest pain, no palpitations, no fever. OBJECTIVE: VITAL SIGNS: Pulse is 85, blood pressure 150/69, and respirations 16. CHEST: Clear to auscultation. CARDIOVASCULAR: S1, S2. ABDOMEN: Soft. LEGS: Status post surgery. LABORATORY DATA: Reviewed. ASSESSMENT: 1. Status post right femoral above-knee popliteal bypass graft and right femoral thromboendarterectomy. 2. Diabetes mellitus, type 2. 3. Mild hyperkalemia, improved. 4. Hypertension. 5. Multiple medical issues. RECOMMENDATIONS: Recommended to continue current management, continue symptomatic treatment. Otherwise, close followup with primary physician in outpatient setting and rest of the recommendations per vascular surgery. Further recommendations for incentive spirometry. MMODL / IJN: [id number] /
[2023-01-07] MEDS ORDERED: TAMSULOSIN 0.4 MG CAP.ER.24H PO SCH (08:30)
== END 2023-01-06 15:41 | disposition home health service (06) | DRG 254 ==
LOC: 2ORMAIN 05:48 → 3SCARD 12:51
PROVIDERS: ADMIT Surgery; ATTEND Surgery
PROC: 04CK0ZZ Extirpation of Matter from Right Femoral Artery, Open Approach (ICD-10-PCS; 2023-01-05)
PROC: 041K0JL Bypass Right Femoral Artery to Popliteal Artery with Synthetic Substitute, Open Approach (ICD-10-PCS; principal; 2023-01-05 07:30)
DX: I70.212 Atherosclerosis of native arteries of extremities with intermittent claudication, left leg (principal); E11.51 Type 2 diabetes mellitus with diabetic peripheral angiopathy without gangrene; E78.5 Hyperlipidemia, unspecified; I10 Essential (primary) hypertension; E87.5 Hyperkalemia; I70.201 Unspecified atherosclerosis of native arteries of extremities, right leg; N40.1 Benign prostatic hyperplasia with lower urinary tract symptoms; R33.8 Other retention of urine; Z79.02 Long term (current) use of antithrombotics/antiplatelets; Z79.82 Long term (current) use of aspirin; Z79.84 Long term (current) use of oral hypoglycemic drugs; Z79.899 Other long term (current) drug therapy; Z85.819 Personal history of malignant neoplasm of unspecified site of lip, oral cavity, and pharynx; Z86.73 Personal history of transient ischemic attack (TIA), and cerebral infarction without residual deficits; Z87.891 Personal history of nicotine dependence; Z88.1 Allergy status to other antibiotic agents
CPT/HCPCS: 80048; 80051; 80053; 82805; 83036; 85025; 85027; 86850; 86900; 86901; 88304

== ENCOUNTER 2023-06-10 07:40 | Inpatient (IN) | payer MEDICARE, BC ==
[2023-06-10] MEDS ORDERED: SODIUM CHLORIDE 0.9% 1,000 ML IV STA ×2 (07:55→10:33)
[2023-06-10] MEDS ORDERED: ONDANSETRON 4 MG/2 ML VIAL IVP STA ×2 (07:55→10:33)
[2023-06-10] MEDS ORDERED: FAMOTIDINE 20 MG/2 ML VIAL IV STA (07:56)
[2023-06-10] MEDS ORDERED: HYDROmorphone 1 MG/ML 1 ML SYRINGE IVP STA ×2 (07:56→10:33)
--- NOTE | 2023-06-10 07:58 | ED ---
General Adult HPI - General Stated complaint: Abd pain Time Seen by Provider: 06/10/23 07:44 Source: patient, RN notes reviewed Limitations: no limitations - History of Present Illness Initial comments: Patient is a pleasant 62-year-old male presenting to the emergency department with concerns with abdominal discomfort. Onset of symptoms was close to 2 weeks ago. Symptoms have worsened this past week. Patient has decreased appetite. Patient has some nausea with occasional vomiting. No constipation or diarrhea. No history of similar symptoms previously. No fever. Discomfort is mostly balbina Umbilical. - Related Data Home Medications Medication Instructions Recorded Confirmed Levothyroxine Sodium [Synthroid] 25 mcg PO QAM 08/07/19 01/05/23 glipiZIDE [Glucotrol] 5 mg PO TID PRN 08/07/19 01/05/23 ALPRAZolam [Xanax] 0.5 mg PO HS 05/04/22 01/05/23 Divalproex ER [Depakote ER] 500 mg PO BID 05/04/22 01/05/23 Melatonin [Melatonin Dissolving 10 mg PO HS 05/04/22 01/05/23 Tablet] metFORMIN HCL 1,000 mg PO BID 05/04/22 01/05/23 Aspirin 81 mg PO QAM 06/29/22 01/05/23 Atorvastatin [Lipitor] 80 mg PO HS 06/29/22 01/05/23 Pantoprazole [Protonix] 40 mg PO QAM 06/29/22 01/05/23 lisinopriL [Zestril] 20 mg PO QAM 07/04/22 01/05/23 Hydrocodone/Acetaminophen 1 tab PO Q8H PRN 01/03/23 01/05/23 [Hydrocodone/Acetaminophen 7.5-325] Metoprolol Succinate (ER) [Toprol 25 mg PO QAM 01/03/23 01/05/23 XL] Nicotine 7Mg/24Hr Patch [Habitrol] 1 patch TRANSDERM QAM 01/03/23 01/05/23 Previous Rx's Medication Instructions Recorded Tamsulosin [Flomax] 0.4 mg PO BID #60 cap 01/06/23 Ticagrelor [Brilinta] 90 mg PO BID #0 tab 01/06/23 Allergies Allergy/AdvReac Type Severity Reaction Status Date / Time tetracycline [Tetracycline] Allergy Rash/Hives Verified 06/10/23 08:05 Review of Systems ROS Statement: Those systems with pertinent positive or pertinent negative responses have been documented in the HPI. ROS Other: All systems not noted in ROS Statement are negative. Constitutional: Denies: fever Eyes: Denies: eye pain ENT: Denies: ear pain Respiratory: Denies: cough Cardiovascular: Denies: chest pain Endocrine: Denies: fatigue Gastrointestinal: Reports: as per HPI, abdominal pain, nausea, vomiting Musculoskeletal: Denies: back pain Past Medical History Past Medical History: Cancer, CVA/TIA, Diabetes Mellitus, Hyperlipidemia, Hypertension, Thyroid Disorder, Vascular Disorder Additional Past Medical History / Comment(s): Current pain in calves. 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 No residual effects from CVA. Hx skin and throat cancer. Hx pancreatitis in 2012. "abdominal pain and nausea from medications, better since taking Pantoprazole". 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, colonoscopy, AAA REPAIR.rt carotid endartectomy 07/2022 Past Anesthesia/Blood Transfusion Reactions: No Reported Reaction Additional Past Anesthesia/Blood Transfusion Reaction / Comment(s): Pt has never had a blood transfusion. Smoking Status: Former smoker Additional Past Alcohol Use History / Comment(s): Smoked on and off for many years, currently less than 1/2 pp'day. Used to drink 3 beers nightly, now has 1 every other day. Additional Drug Use History / Comment(s): MARIJUANA USE OCCASSIONALLY-INSTRUCTED TO REFRAIN FROM USE FOR AT LEAST 24 HOURS PRIOR TO PROCEDURE. - Past Family History Mother Family Medical History: CVA/TIA Father Family Medical History: Myocardial Infarction (NH) Additional Family Medical History / Comment(s): NH in 50's. General Exam Limitations: no limitations General appearance: alert, in no apparent distress Head exam: Present: normocephalic Eye exam: Present: normal appearance ENT exam: Present: normal oropharynx Neck exam: Present: normal inspection Respiratory exam: Present: normal lung sounds bilaterally Cardiovascular Exam: Present: regular rate, normal rhythm Expanded Peripheral pulses: 2+: Posterior Tibialis (R), Posterior Tibialis (L) GI/Abdominal exam: Present: soft, tenderness (Mild diffuse tenderness), normal bowel sounds. Absent: distended, guarding, rebound, rigid, pulsatile mass Extremities exam: Present: normal inspection Neurological exam: Present: alert Psychiatric exam: Present: normal affect, normal mood Skin exam: Present: normal color Course Vital Signs 06/10/23 07:41 Temperature 97.7 F Pulse Rate 85 Respiratory 18 Rate Blood Pressure 92/70 O2 Sat by Pulse 97 Oximetry EKG Findings - EKG Results: EKG: interpreted by ERMD (LVH with repolarization change.), sinus rhythm, normal axis Medical Decision Making - Medical Decision Making Was pt. sent in by a medical professional or institution (, PA, FINGERPRINT TECHNICIAN, urgent care, hospital, or senior living...) When possible be specific @ -No Did you speak to anyone other than the patient for history (EMS, parent, family, police, friend...)? What history was obtained from this source @ -No Did you review nursing and triage notes (agree or disagree)? Why? @ -I reviewed and agree with nursing and triage notes Were old charts reviewed (outside hosp., previous admission, EMS record, old EKG, old radiological studies, urgent care reports/EKG's, senior living records)? Report findings @ -No old charts were reviewed Differential Diagnosis (chest pain, altered mental status, abdominal pain women, abdominal pain men, vaginal bleeding, weakness, fever, dyspnea, syncope, headache, dizziness, GI bleed, back pain, seizure, CVA, palpatations, mental health, musculoskeletal)? @ -Differential Abdominal Pain Men: Appendicitis, cholecystitis, diverticulosis, ischemic bowel, pancreatitis, hepatitis, UTI, gastroenteritis, AAA, incarcerated hernia, bowel obstruction, constipation, inflammatory bowel, hepatitis, peptic ulcer disease, splenic infarction, perforated viscus, testicular torsion, this is not meant to be an all-inclusive list EKG interpreted by me (3pts min.). @ -As above X-rays interpreted by me (1pt min.). @ -None done CT interpreted by me (1pt min.). @ -Report reviewed U/S interpreted by me (1pt. min.). @ -None done What testing was considered but not performed or refused? (CT, X-rays, U/S, labs)? Why? @ -None What meds were considered but not given or refused? Why? @ -None Did you discuss the management of the patient with other professionals (professionals i.e. DrBladimir, PA, FINGERPRINT TECHNICIAN, lab, RT, psych nurse, geriatric social worker, project analyst, teacher, chief technology officer, manager of case)? Give summary @ -Case was discussed with Dr. Eaton who will admit his patient. Was smoking cessation discussed for >3mins.? @ -No Was critical care preformed (if so, how long)? @ -No Were there social determinants of health that impacted care today? How? (Homelessness, low income, unemployed, alcoholism, drug addiction, tra nsportation, low edu. Level, literacy, decrease access to med. care, assisted, rehab)? @ -No Was there de-escalation of care discussed even if they declined (Discuss DNR or withdrawal of care, Hospice)? DNR status @ -No What co-morbidities impacted this encounter? (DM, HTN, Smoking, COPD, CAD, Cancer, CVA, ARF, Chemo, Hep., AIDS, mental health diagnosis, sleep apnea, morbid obesity)? @ -None Was patient admitted / discharged? Hospital course, mention meds given and route, prescriptions, significant lab abnormalities, going to OR and other pertinent info. @ -Patient presents with diffuse abdominal discomfort and decreased oral intake. Patient has associated hyponatremia with dehydration suspected. Computed tomography scan shows hydronephrosis of uncertain etiology. Urinalysis is still pending. Patient will be admitted with IV fluids and pain and nausea control. Undiagnosed new problem with uncertain prognosis? @ -No Drug Therapy requiring intensive monitoring for toxicity (Heparin, Nitro, Insuli n, Cardizem)? @ -No Were any procedures done? @ -No Diagnosis/symptom? @ -Hyponatremia, hydronephrosis Acute, or Chronic, or Acute on Chronic? @ -Acute, acute Uncomplicated (without systemic symptoms) or Complicated (systemic symptoms)? @ -default Side effects of treatment? @ -No Exacerbation, Progression, or Severe Exacerbation? @ -No Poses a threat to life or bodily function? How? (Chest pain, [place], NH, pneumonia, PE, COPD, DKA, ARF, appy, cholecystitis, CVA, Diverticulitis, Homicidal, Suicidal, threat to staff... and all critical care pts) @ -No - Lab Data Result diagrams: 06/10/23 08:06 06/10/23 08:06 Lab Results 06/10/23 06/10/23 06/10/23 Range/Units 08:06 08:06 08:06 WBC 12.4 H (3.8-10.6) k/uL RBC 4.28 L (4.30-5.90) m/uL Hgb 14.1 (13.0-17.5) gm/dL Hct 41.5 (39.0-53.0) % MCV 96.9 (80.0-100.0) fL MCH 32.8 (25.0-35.0) pg MCHC 33.9 (31.0-37.0) g/dL RDW 13.8 (11.5-15.5) % Plt Count 280 (150-450) k/uL MPV 7.6 Neutrophils % 81 % Lymphocytes % 9 % Monocytes % 9 % Eosinophils % 1 % Basophils % 0 % Neutrophils # 10.1 H (1.3-7.7) k/uL Lymphocytes # 1.1 (1.0-4.8) k/uL Monocytes # 1.1 H (0-1.0) k/uL Eosinophils # 0.1 (0-0.7) k/uL Basophils # 0.0 (0-0.2) k/uL PT 10.5 (9.0-12.0) sec INR 1.0 (<1.2) APTT 26.7 (22.0-30.0) sec Sodium 124 L (137-145) mmol/L Potassium 4.6 (3.5-5.1) mmol/L Chloride 89 L (98-107) mmol/L Carbon Dioxide 26 (22-30) mmol/L Anion Gap 9 mmol/L BUN 7 L (9-20) mg/dL Creatinine 0.72 (0.66-1.25) mg/dL Est GFR (CKD-EPI)AfAm >90 (>60 ml/min/1.73 sqM) Est GFR (CKD-EPI)NonAf >90 (>60 ml/min/1.73 sqM) Glucose 187 H (74-99) mg/dL Calcium 9.0 (8.4-10.2) mg/dL Total Bilirubin 1.0 (0.2-1.3) mg/dL AST 24 (17-59) U/L ALT 17 (4-49) U/L Alkaline Phosphatase 58 (38-126) U/L Troponin I (0.000-0.034) ng/mL Total Protein 7.1 (6.3-8.2) g/dL Albumin 4.0 (3.5-5.0) g/dL Amylase 38 (30-110) U/L Lipase 41 (23-300) U/L 06/10/23 Range/Units 08:06 WBC (3.8-10.6) k/uL RBC (4.30-5.90) m/uL Hgb (13.0-17.5) gm/dL Hct (39.0-53.0) % MCV (80.0-100.0) fL MCH (25.0-35.0) pg MCHC (31.0-37.0) g/dL RDW (11.5-15.5) % Plt Count (150-450) k/uL MPV Neutrophils % % Lymphocytes % % Monocytes % % Eosinophils % % Basophils % % Neutrophils # (1.3-7.7) k/uL Lymphocytes # (1.0-4.8) k/uL Monocytes # (0-1.0) k/uL Eosinophils # (0-0.7) k/uL Basophils # (0-0.2) k/uL PT (9.0-12.0) sec INR (<1.2) APTT (22.0-30.0) sec Sodium (137-145) mmol/L Potassium (3.5-5.1) mmol/L Chloride (98-107) mmol/L Carbon Dioxide (22-30) mmol/L Anion Gap mmol/L BUN (9-20) mg/dL Creatinine (0.66-1.25) mg/dL Est GFR (CKD-EPI)AfAm (>60 ml/min/1.73 sqM) Est GFR (CKD-EPI)NonAf (>60 ml/min/1.73 sqM) Glucose (74-99) mg/dL Calcium (8.4-10.2) mg/dL Total Bilirubin (0.2-1.3) mg/dL AST (17-59) U/L ALT (4-49) U/L Alkaline Phosphatase (38-126) U/L Troponin I <0.012 (0.000-0.034) ng/mL Total Protein (6.3-8.2) g/dL Albumin (3.5-5.0) g/dL Amylase (30-110) U/L Lipase (23-300) U/L Disposition Clinical Impression: Abdominal pain, Hyponatremia, Hydronephrosis Disposition: ADMITTED IP TO THIS HOSP Is patient prescribed a controlled substance at d/c from ED?: No Referrals: Marin Eaton MD [Primary Care Provider] - 1-2 days Time of Disposition: 10:32
[2023-06-10 08:46] LABS: Basophils % (A) 0 %; Eosinophils # (A) 0.1 k/uL (0-0.7); Eosinophils % (A) 1 %; HCT 41.5 % (39.0-53.0); HGB 14.1 gm/dL (13.0-17.5); Lymphocytes # (A) 1.1 k/uL (1.0-4.8); Lymphocytes % (A) 9 %; MCH 32.8 pg (25.0-35.0); MCHC 33.9 g/dL (31.0-37.0); MCV 96.9 fL (80.0-100.0); Mean Platelet Volume 7.6; Monocytes # (A) 1.1 k/uL (0-1.0); Monocytes % (A) 9 %; Neutrophils # (A) 10.1 k/uL (1.3-7.7); Neutrophils % (A) 81 %; Platelet Count 280 k/uL (150-450); RBC 4.28 m/uL (4.30-5.90); RDW 13.8 % (11.5-15.5); WBC 12.4 k/uL (3.8-10.6)
[2023-06-10 09:19] LABS: ALT 17 U/L (4-49); AST 24 U/L (17-59); African American GFR (CKD) >90 (>60 ml/min/1.73 sqM); Alkaline Phosphatase 58 U/L (38-126); Amylase 38 U/L (30-110); Anion Gap 9 mmol/L; Blood Urea Nitrogen 7 mg/dL (9-20); Carbon Dioxide 26 mmol/L (22-30); Chloride 89 mmol/L (98-107); Glucose 187 mg/dL (74-99); Lipase 41 U/L (23-300); Non-African American GFR(CKD) >90 (>60 ml/min/1.73 sqM); Potassium 4.6 mmol/L (3.5-5.1); Sodium 124 mmol/L (137-145); Total Protein 7.1 g/dL (6.3-8.2)
[2023-06-10 09:24] LABS: Partial Thromboplastin Time 26.7 sec (22.0-30.0); Prothrombin Time 10.5 sec (9.0-12.0)
--- NOTE | 2023-06-10 10:22 | CT ---
EXAMINATION TYPE: CT abdomen pelvis w con DATE OF EXAM: 06/10/2023 COMPARISON: None INDICATION: nausea, vomiting, abdominal pain x1 week DLP: 1049.9 mGycm, Automated exposure control for dose reduction was used. CONTRAST: 100 mL of Isovue 300. Study performed without Oral Contrast TECHNIQUE: Axial images were obtained from above the diaphragm to the pubic rami in the axial plane a t 5 mm thick sections. Reconstructed images are reviewed on the computer in the coronal plane. FINDINGS: Limited CT sections are obtained the lung bases. No compressive atelectasis is within the dependent lung bases.. CT ABDOMEN: Liver: Normal Spleen: Normal Pancreas: Normal Adrenal glands: The adrenal glands are normal. Gallbladder: Normal Kidneys: No masses are evident. No hydronephrosis is present. No cysts are present. Nonobstructing punctate renal stones are present bilaterally that are visualized in the coronal plane. Some mild ri ght hydronephrosis and hydroureter is evident. No obstructing etiology is identified. Some free fluid is adjacent to the right kidney. Aorta: Vascular calcification is within the aorta. There is no abdominal aortic aneurysm. This has b een stented. Contrast is within the stent extending into the iliac limbs. No extravasation of contras t is evident. Vascular calcifications within the iliac vessels. Inferior vena cava: Normal. CT PELVIS: Loops of bowel within the abdomen and pelvis are normal. This study is without oral contrast limi ting bowel evaluation Appendix: Normal as visualized. Urinary bladder: Normal. Genitourinary structures: Prostate contains calcification. Osseous structures: No suspicious lytic or sclerotic lesions. IMPRESSION: 1. Fluid adjacent to the right kidney with mild right hydronephrosis and hydroureter without obstruc ting etiology identified. Nonobstructing renal stones are present within the bilateral kidneys. Consi jaci recent passage of a renal/ureteral stone. 2. Stented abdominal aortic aneurysm without evidence of endovascular leak.
[2023-06-10] MEDS ORDERED: NALOXONE 0.4 MG/ML 1 ML VIAL IV PRN (10:35)
[2023-06-10] MEDS ORDERED: ACETAMINOPHEN TAB 325 MG TAB PO PRN (10:35)
[2023-06-10] MEDS ORDERED: ONDANSETRON 4 MG/2 ML VIAL IVP PRN (10:35)
[2023-06-10 11:17] LABS: Appearance,Urine Clear (Clear); Bilirubin,Urine Negative (Negative); Blood,Urine Negative (Negative); Color,Urine Colorless; Glucose,Urine (UA) 1+ (Negative); Ketones,Urine Negative (Negative); Leukocyte Esterase,Urine Negative (Negative); Nitrite,Urine Negative (Negative); PH, Urine 7.5 (5.0-8.0); Protein,Urine Negative (Negative); Specific Gravity,Urine 1.014 (1.001-1.035); Urobilinogen,Urine <2.0 mg/dL (<2.0)
[2023-06-10] MEDS: SODIUM CHLORIDE 0.9% 1,000 ML IV SCH (11:18)
--- NOTE | 2023-06-10 11:29 | US ---
EXAMINATION TYPE: US kidneys/renal and bladder DATE OF EXAM: 06/10/2023 COMPARISON: NONE CLINICAL INDICATION: Male, 62 years old with history of pain, hydronephrosis; EXAM MEASUREMENTS: Right Kidney: 12.0 x 7.0 x 4.8 cm Left Kidney: 10.8 x 4.7 x 4.4 cm Right Kidney: small amount of perinephric fluid. dilated renal pelvis Left Kidney: no evidence of hydronephrosis Bladder: possible debris noted Bilateral Jets seen: no Urinary bladder wall as visualized appears unremarkable. Patient's known renal stones are not identified. IMPRESSION: 1. Small amount of debris within the urinary bladder. Consider cystitis.
[2023-06-10] MEDS: PANTOPRAZOLE 40 MG/10 ML VIAL IV SCH (11:58)
[2023-06-10] MEDS ORDERED: glipiZIDE 5 MG TAB PO PRN (14:01)
[2023-06-10] MEDS: HYDROmorphone 1 MG/ML 1 ML SYRINGE IVP PRN ×3 (14:51→23:54)
--- NOTE | 2023-06-10 16:07 | P.HPIM ---
History of Present Illness H&P Date: 06/10/23 Sumit Yang, is a 62-year-old male who presented to [facility] emergency room with a chief complaint of abdominal pain, patient stated that his pain started about 1 week ago and has been worsening. He was evaluated in the emergency room vital examination on presentation revealed a temperature of 97.7 pulse 85 respiration 18 blood pressure 92/70 pulse ox 97% on room air Laboratory data revealed a white blood count of 12.4 hemoglobin 14.1 platelet count 280 sodium 124 potassium 4.6 chloride 26 BUN 7 creatinine 0.72 glucose level 187 Testing in the emergency room revealed computed tomography scan of the abdomen and pelvis revealed evidence of right kidney hydronephrosis with hydroureter with fluid collection adjacent to the right kidney Patient was admitted to medical floor for further evaluation and treatment Past Medical History Past Medical History: Cancer, CVA/TIA, Diabetes Mellitus, Hyperlipidemia, Hypertension, Thyroid Disorder, Vascular Disorder Additional Past Medical History / Comment(s): Current pain in calves. 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 No residual effects from CVA. Hx skin and throat ca ncer. Hx pancreatitis in 2012. "abdominal pain and nausea from medications, better since taking Pantoprazole". 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, colonoscopy, AAA REPAIR.rt carotid endartectomy 07/2022 Past Anesthesia/Blood Transfusion Reactions: No Reported Reaction Additional Past Anesthesia/Blood Transfusion Reaction / Comment(s): Pt has never had a blood transfusion. Smoking Status: Former smoker Additional Past Alcohol Use History / Comment(s): Smoked on and off for many years, currently less than 1/2 pp'day. Used to drink 3 beers nightly, now has 1 every other day. Additional Drug Use History / Comment(s): MARIJUANA USE OCCASSIONALLY-INSTRUCTED TO REFRAIN FROM USE FOR AT LEAST 24 HOURS PRIOR TO PROCEDURE. - Past Family History Mother Family Medical History: CVA/TIA Father Family Medical History: Myocardial Infarction (MD) Additional Family Medical History / Comment(s): MD in 50's. Medications and Allergies Home Medications Medication Instructions Recorded Confirmed Type Levothyroxine Sodium [Synthroid] 25 mcg PO DAILY 08/07/19 06/10/23 History glipiZIDE [Glucotrol] 5 mg PO TID PRN 08/07/19 06/10/23 History ALPRAZolam [Xanax] 0.5 mg PO BID 05/04/22 06/10/23 History Divalproex ER [Depakote ER] 500 mg PO BID 05/04/22 06/10/23 History Melatonin [Melatonin Dissolving 10 mg PO HS 05/04/22 06/10/23 History Tablet] metFORMIN HCL 1,000 mg PO BID 05/04/22 06/10/23 History Aspirin 81 mg PO DAILY 06/29/22 06/10/23 History Atorvastatin [Lipitor] 80 mg PO HS 06/29/22 06/10/23 History Pantoprazole [Protonix] 40 mg PO BID 06/29/22 06/10/23 History Metoprolol Succinate (ER) [Toprol 25 mg PO DAILY 01/03/23 06/10/23 History XL] Ticagrelor [Brilinta] 90 mg PO BID #0 tab 01/06/23 06/10/23 Rx Tamsulosin [Flomax] 0.4 mg PO DAILY 06/10/23 06/10/23 History lisinopriL [Zestril] 20 mg PO BID 06/10/23 06/10/23 History Allergies Allergy/AdvReac Type Severity Reaction Status Date / Time tetracycline [Tetracycline] Allergy Rash/Hives Verified 06/10/23 11:00 Physical Exam Vitals: Vital Signs Temp Pulse Resp BP Pulse Ox 06/10/23 14:15 87 16 116/96 95 06/10/23 11:19 92 18 97/78 98 06/10/23 07:41 97.7 F 85 18 92/70 97 Intake and Output 06/10/23 06/10/23 06/10/23 06:59 14:59 22:59 Other: Weight 80.739 kg In general patient is alert and oriented ?-3 in no distress HEENT head normocephalic and atraumatic Neck is supple no JVD no goiter no lymphadenopathy no carotid bruit Chest examination is clear to auscultation no crackles no wheezing Cardiac exam reveals regular heart sounds S1 and S2 no gallops no murmurs Abdomen is soft with mild tenderness in the balbina-umbilical area no organomegaly with normal bowel sounds Extremity exam reveals no edema no cyanosis or clubbing Neurological examination reveals no gross focal deficits Results CBC & Chem 7: 06/10/23 08:06 06/10/23 08:06 Labs: Abnormal Lab Results - Last 24 Hours (Table) 06/10/23 06/10/23 06/10/23 Range/Units 08:06 08:06 11:03 WBC 12.4 H (3.8-10.6) k/uL RBC 4.28 L (4.30-5.90) m/uL Neutrophils # 10.1 H (1.3-7.7) k/uL Monocytes # 1.1 H (0-1.0) k/uL Sodium 124 L (137-145) mmol/L Chloride 89 L (98-107) mmol/L BUN 7 L (9-20) mg/dL Glucose 187 H (74-99) mg/dL Urine Glucose (UA) 1+ H (Negative) Assessment and Plan Plan: Abdominal pain Mild leukocytosis, could be reactive no evidence of urinary tract infection on urine analysis, will monitor closely off antibiotics at this time, will recheck CBC in a.m.. Evidence of right kidney hydronephrosis and hydroureter Severe hyponatremia History of abdominal aortic aneurysm with history of stent placement Underlying history of hypertension Underlying history of depression Underlying history of COPD Underlying history of [id number]-nihuukoed diabetes mellitus Previous history of peripheral arterial disease with superficial femoral artery occlusion with history of left femoral popliteal bypass graft surgery Underlying history of hyperlipidemia Underlying history of hypothyroidism Underlying history of benign prostatic hypertrophy At this time patient will be admitted to medical floor He was started on IV normal saline for management of dehydration was severe hyponatremia Urology consultation was requested due to right sided hydronephrosis and hydroureter Patient has been complaining of worsening depression, will check Depakote level and consult psychiatry per his request At this time will hold oral medications for diabetes cover with insulin sliding scale Will continue to follow closely during this admission
--- NOTE | 2023-06-10 18:34 | P.GSCN ---
History of Present Illness Consult date: 06/10/23 Reason for Consult: Right hydronephrosis Requesting physician: Marin Eaton History of present illness: The patient is a 62-year-old white male with no prior history of urolithiasis. He believes he has been treated for a UTI in the past, though he is a vague historian. He presents with a one-week history of periumbilical abdominal pain. He denies back and flank pain. He also denies dysuria and hematuria. Review of Systems - Constitutional Denies chills, Denies fever - Gastrointestinal Reports abdominal pain, Reports nausea, Reports vomiting - Genitourinary Denies dysuria, Denies flank pain, Denies hematuria Past Medical History Past Medical History: Cancer, CVA/TIA, Diabetes Mellitus, Hyperlipidemia, Hypertension, Thyroid Disorder, Vascular Disorder Additional Past Medical History / Comment(s): Current pain in calves. 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 No residual effects from CVA. Hx skin and throat cancer. Hx pancreatitis in 2012. "abdominal pain and nausea from medications, better since taking Pantoprazole". 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 Past Psychological History: Bipolar Additional Psychological History / Comment(s): Depakote is for bipolar. Pt resides alone. Smoking Status: Current every day smoker Past Alcohol Use History: None Reported Additional Past Alcohol Use History / Comment(s): Smoked on and off for many years, currently less than 1/2 pp'day. Used to drink 3 beers nightly, now has 1 every other day. Past Drug Use History: Marijuana Additional Drug Use History / Comment(s): MARIJUANA USE OCCASSIONALLY-INSTRUCTED TO REFRAIN FROM USE FOR AT LEAST 24 HOURS PRIOR TO PROCEDURE. - Past Family History Mother Family Medical History: CVA/TIA Father Family Medical History: Myocardial Infarction ([place]) Additional Family Medical History / Comment(s): [place] in 50's. Medications and Allergies Home Medications Medication Instructions Recorded Confirmed Type Levothyroxine Sodium [Synthroid] 25 mcg PO DAILY 08/07/19 06/10/23 History glipiZIDE [Glucotrol] 5 mg PO TID PRN 08/07/19 06/10/23 History ALPRAZolam [Xanax] 0.5 mg PO BID 05/04/22 06/10/23 History Divalproex ER [Depakote ER] 500 mg PO BID 05/04/22 06/10/23 History Melatonin [Melatonin Dissolving 10 mg PO HS 05/04/22 06/10/23 History Tablet] metFORMIN HCL 1,000 mg PO BID 05/04/22 06/10/23 History Aspirin 81 mg PO DAILY 06/29/22 06/10/23 History Atorvastatin [Lipitor] 80 mg PO HS 06/29/22 06/10/23 History Pantoprazole [Protonix] 40 mg PO BID 06/29/22 06/10/23 History Metoprolol Succinate (ER) [Toprol 25 mg PO DAILY 01/03/23 06/10/23 History XL] Ticagrelor [Brilinta] 90 mg PO BID #0 tab 01/06/23 06/10/23 Rx Tamsulosin [Flomax] 0.4 mg PO DAILY 06/10/23 06/10/23 History lisinopriL [Zestril] 20 mg PO BID 06/10/23 06/10/23 History Allergies Allergy/AdvReac Type Severity Reaction Status Date / Time tetracycline [Tetracycline] Allergy Rash/Hives Verified 06/10/23 11:00 Surgical - Exam Vital Signs Temp Pulse Resp BP Pulse Ox 97.7 F 85 18 92/70 97 06/10/23 07:41 06/10/23 07:41 06/10/23 07:41 06/10/23 07:41 06/10/23 07:41 - General well developed, well nourished, no distress - Neck no masses, trachea midline - Respiratory normal respiratory effort - Abdomen Abdomen: soft, non tender, no guarding, no rigid, no rebound - Genitourinary normal penis with no external lesions, testicles non-tender - Psychiatric oriented to time, oriented to person, oriented to place, speech is normal, memory intact Results - Labs 06/10/23 08:06 06/10/23 08:06 Abnormal Lab Results - Last 24 Hours (Table) 06/10/23 06/10/23 06/10/23 Range/Units 08:06 08:06 11:03 WBC 12.4 H (3.8-10.6) k/uL RBC 4.28 L (4.30-5.90) m/uL Neutrophils # 10.1 H (1.3-7.7) k/uL Monocytes # 1.1 H (0-1.0) k/uL Sodium 124 L (137-145) mmol/L Chloride 89 L (98-107) mmol/L BUN 7 L (9-20) mg/dL Glucose 187 H (74-99) mg/dL Urine Glucose (UA) 1+ H (Negative) Diabetes panel 06/10/23 Range/Units 08:06 Sodium 124 L (137-145) mmol/L Potassium 4.6 (3.5-5.1) mmol/L Chloride 89 L (98-107) mmol/L Carbon Dioxide 26 (22-30) mmol/L BUN 7 L (9-20) mg/dL Creatinine 0.72 (0.66-1.25) mg/dL Glucose 187 H (74-99) mg/dL Calcium 9.0 (8.4-10.2) mg/dL AST 24 (17-59) U/L ALT 17 (4-49) U/L Alkaline Phosphatase 58 (38-126) U/L Total Protein 7.1 (6.3-8.2) g/dL Albumin 4.0 (3.5-5.0) g/dL Calcium panel 06/10/23 Range/Units 08:06 Calcium 9.0 (8.4-10.2) mg/dL Albumin 4.0 (3.5-5.0) g/dL Pituitary panel 06/10/23 Range/Units 08:06 Sodium 124 L (137-145) mmol/L Potassium 4.6 (3.5-5.1) mmol/L Chloride 89 L (98-107) mmol/L Carbon Dioxide 26 (22-30) mmol/L BUN 7 L (9-20) mg/dL Creatinine 0.72 (0.66-1.25) mg/dL Glucose 187 H (74-99) mg/dL Calcium 9.0 (8.4-10.2) mg/dL Adrenal panel 06/10/23 Range/Units 08:06 Sodium 124 L (137-145) mmol/L Potassium 4.6 (3.5-5.1) mmol/L Chloride 89 L (98-107) mmol/L Carbon Dioxide 26 (22-30) mmol/L BUN 7 L (9-20) mg/dL Creatinine 0.72 (0.66-1.25) mg/dL Glucose 187 H (74-99) mg/dL Calcium 9.0 (8.4-10.2) mg/dL Total Bilirubin 1.0 (0.2-1.3) mg/dL AST 24 (17-59) U/L ALT 17 (4-49) U/L Alkaline Phosphatase 58 (38-126) U/L Total Protein 7.1 (6.3-8.2) g/dL Albumin 4.0 (3.5-5.0) g/dL - Imaging CT scan - abdomen: report reviewed, image reviewed US - kidney/bladder: report reviewed Assessment and Plan Assessment: I have reviewed the patient's CT scan, which shows evidence of mild right hydronephrosis. Bilateral perinephric fat stranding is noted, the significance of which is unclear, and there may be a very small amount of fluid surrounding the right kidney. Punctate renal calculi are seen. It is unclear whether these findings are related to the patient's current symptomatology. A recently passed right ureteral calculus could account for the CT scan findings. (1) Hydronephrosis Current Visit: Yes Status: Acute Code(s): N13.30 - UNSPECIFIED HYDRONEPHROSIS SNOMED Code(s): 32534842 Plan: The patient's symptoms fail to improve, will consider cystoscopy, right retrograde pyelogram, right ureteral stent insertion. Time with Patient: Greater than 30
[2023-06-10 19:53] LABS: Glucose,Whole Blood 200 mg/dL (70-110)
[2023-06-10] MEDS ORDERED: DEXTROSE 50% SYRINGE 50 ML IVP PRN ×2 (19:58)
[2023-06-10] MEDS: ALPRAZolam 0.5 MG TAB PO SCH (20:03)
[2023-06-10] MEDS: ATORVASTATIN 80 MG TAB PO SCH ×2 (20:03→21:27)
[2023-06-10] MEDS: TICAGRELOR 90 MG TAB PO SCH ×2 (20:03→21:27)
[2023-06-10] MEDS: MELATONIN 5 MG TABLET PO SCH (20:03)
[2023-06-10] MEDS: DIVALPROEX ER 500 MG TAB.ER.24H PO SCH ×2 (20:03→21:27)
[2023-06-10] MEDS: lisinopriL 20 MG TAB PO SCH ×2 (20:03→21:27)
[2023-06-10] MEDS: INSULIN ASPART (NovoLOG) 100 UNIT/ML VIAL SQ SCH (20:44)
[2023-06-10] MEDS ORDERED: metFORMIN 500 MG TAB PO SCH (21:00)
[2023-06-11] MEDS: SODIUM CHLORIDE 0.9% 1,000 ML IV SCH ×2 (01:02→16:22)
[2023-06-11] MEDS: LEVOTHYROXINE 25 MCG TAB PO SCH (06:30)
[2023-06-11 06:31] LABS: Glucose,Whole Blood 214 mg/dL (70-110)
[2023-06-11] MEDS: INSULIN ASPART (NovoLOG) 100 UNIT/ML VIAL SQ SCH ×4 (06:32→20:09)
[2023-06-11] MEDS: HYDROmorphone 1 MG/ML 1 ML SYRINGE IVP PRN ×3 (06:33→16:24)
[2023-06-11] MEDS: lisinopriL 20 MG TAB PO SCH ×2 (08:34→20:02)
[2023-06-11] MEDS: TICAGRELOR 90 MG TAB PO SCH ×2 (08:34→20:09)
[2023-06-11] MEDS: ASPIRIN 81 MG PO SCH (08:34)
[2023-06-11] MEDS: TAMSULOSIN 0.4 MG CAP.ER.24H PO SCH (08:34)
[2023-06-11] MEDS: ALPRAZolam 0.5 MG TAB PO SCH ×2 (08:34→20:09)
[2023-06-11] MEDS: PANTOPRAZOLE 40 MG/10 ML VIAL IV SCH (08:34)
[2023-06-11] MEDS: DIVALPROEX ER 500 MG TAB.ER.24H PO SCH ×2 (08:34→20:09)
[2023-06-11] MEDS: METOPROLOL SUCCINATE (ER) 25 MG TAB.ER.24H PO SCH (08:37)
[2023-06-11 09:20] LABS: HCT 41.6 % (39.6-50.0); HGB 14.6 d/dL (13.0-17.0); MCH 32.6 pg (27.0-32.0); MCHC 35.1 d/dL (32.0-37.0); MCV 92.9 FL (80.0-97.0); Mean Platelet Volume 9.8 FL (9.5-12.2); NRBC Per 100 WBC 0 X 10*3/uL (0.00-0.01); Platelet Count 278 X 10*3/uL (140-440); RBC 4.48 X 10*6/uL (4.40-5.60); RDW 13.7 % (11.5-14.5); WBC 14.73 X 10*3/uL (4.50-10.00)
[2023-06-11 09:51] LABS: ALT 12 U/L (10-49); AST 21 U/L (14-35); Albumin 4.3 d/dL (3.8-4.9); Albumin/Globulin Ratio 1.87 Ratio (1.60-3.17); Alkaline Phosphatase 56 U/L (41-126); Blood Urea Nitrogen 5.2 mg/dL (9.0-27.0); Calcium 9.8 mg/dL (8.7-10.3); Chloride 92 mmol/L (96-109); Globulin 2.3 d/dL (1.6-3.3); Glucose 158 mg/dL (70-110); Potassium 4.8 mmol/L (3.5-5.5); Sodium 128 mmol/L (135-145); Total Bilirubin 0.8 mg/dL (0.3-1.2); Total Protein 6.6 d/dL (6.2-8.2)
[2023-06-11 09:51] LABS: Basophils # (A) 0.03 X 10*3/uL (0.00-0.10); Basophils % (A) 0.2 %; Crenated RBC 3+; Eosinophils # (A) 0.08 X 10*3/uL (0.04-0.35); Eosinophils % (A) 0.5 %; Lymphocytes # (A) 1.89 X 10*3/uL (0.90-5.00); Lymphocytes % (A) 12.8 %; Monocytes # (A) 1.76 X 10*3/uL (0.20-1.00); Monocytes % (A) 11.9 %; Neutrophils # (A) 10.88 X 10*3/uL (1.80-7.70)
--- NOTE | 2023-06-11 09:53 | P.PN ---
Subjective Progress Note Date: 06/11/23 Principal diagnosis: Right hydronephrosis The patient was admitted with periumbilical abdominal pain. CT scan showed mild right hydronephrosis with perinephric stranding. The patient is irritated and states that he was unable to sleep overnight, mostly due to noise and discomfort to a lesser degree. He states that his pain is improved today. Objective - Vital Signs Vital signs: Vital Signs Temp 98.3 F 06/11/23 07:00 Pulse 93 06/11/23 07:00 Resp 16 06/11/23 07:00 BP 106/74 06/11/23 07:00 Pulse Ox 96 06/11/23 07:00 FiO2 Intake & Output 06/10/23 06/11/23 06/11/23 18:59 06:59 18:59 Intake Total 118 Output Total 750 Balance -750 118 Weight 80.739 kg Intake: Oral 118 Output: Urine 750 Other: Voiding Method Urinal Urinal # Voids 3 - Constitutional General appearance: Present: average body habitus, no acute distress - Gastrointestinal Gastrointestinal Comment(s): Soft, non-tender, non-distended, no mass. - Psychiatric Psychiatric: Present: A&O x's 3 - Labs CBC & Chem 7: 06/11/23 05:18 06/10/23 08:06 Labs: Abnormal Lab Results - Last 24 Hours (Table) 06/10/23 06/10/23 06/11/23 Range/Units 11:03 19:52 05:18 WBC 14.73 H (4.50-10.00) X 10*3/uL MCH 32.6 H (27.0-32.0) pg POC Glucose (mg/dL) 200 H (70-110) mg/dL Urine Glucose (UA) 1+ H (Negative) 06/11/23 Range/Units 06:29 WBC (4.50-10.00) X 10*3/uL MCH (27.0-32.0) pg POC Glucose (mg/dL) 214 H (70-110) mg/dL Urine Glucose (UA) (Negative) Assessment and Plan Assessment: I have reviewed the patient's CT scan, which shows evidence of mild right hydro nephrosis. Bilateral perinephric fat stranding is noted, the significance of which is unclear, and there may be a very small amount of fluid surrounding the right kidney. Punctate renal calculi are seen. It is unclear whether these findings are related to the patient's current symptomatology, as his only pain is periumbilical in location. A recently passed right ureteral calculus could account for the CT scan findings. He states that he is feeling somewhat better today and is interested in discharge home. Consideration is given to performing cystoscopy, right retrograde pyelogram, and right ureteral stent insertion. This was discussed with the patient. As stated, he does not have symptoms which appear to be genitourinary in origin, and his condition is somewhat improved. I am concerned that if a ureteral stent is placed, it may worsen his symptoms. I am also concerned about his compliance, because if a stent is placed it would be necessary for him to follow up so that the stent does not remain in place for an extended time frame. (1) Hydronephrosis Current Visit: Yes Status: Acute Code(s): N13.30 - UNSPECIFIED HYDRONEPHROSIS SNOMED Code(s): 10551216 Plan: - Observe for now. - If the patient's symptoms fail to improve, will consider cystoscopy, right retrograde pyelogram, right ureteral stent insertion. - If patient is discharged (as he desires), he was instructed to follow-up with me in 1-2 weeks.
--- NOTE | 2023-06-11 10:08 | P.PN ---
Subjective Progress Note Date: 06/11/23 Sumit Yang, is a 62-year-old male who presented to [facility] emergency room with a chief complaint of abdominal pain, patient stated that his pain started about 1 week ago and has been worsening. He was evaluated in the emergency room vital examination on presentation revealed a temperature of 97.7 pulse 85 respiration 18 blood pressure 92/70 pulse ox 97% on room air Laboratory data revealed a white blood count of 12.4 hemoglobin 14.1 platelet count 280 sodium 124 potassium 4.6 chloride 26 BUN 7 creatinine 0.72 glucose level 187 Testing in the emergency room revealed computed tomography scan of the abdomen and pelvis revealed evidence of right kidney hydronephrosis with hydroureter with fluid collection adjacent to the right kidney Patient was admitted to medical floor for further evaluation and treatment On 06/11/2023 patient is alert and oriented 3. Patient still complaining of generalized abdominal discomfort. White blood cell elevated at 14.73. UA was negative. We'll order chest x-ray to rule out pneumonia and consult infectious disease services. Discussed case with urology services no presents for cystoscopy at this time will continue to monitor patient. Per nursing staff patient apparently is threatening to leave me if not discharged. At this time patient is not medically cleared for discharge due to continued elevated white blood cell count, abdominal pain hyponatremia Objective - Vital Signs Vital signs: Vital Signs Temp 98.3 F 06/11/23 07:00 Pulse 93 06/11/23 07:00 Resp 16 06/11/23 07:00 BP 106/74 06/11/23 07:00 Pulse Ox 96 06/11/23 07:00 FiO2 Intake & Output 06/10/23 06/11/23 06/11/23 18:59 06:59 18:59 Intake Total 118 Output Total 750 Balance -750 118 Weight 80.739 kg Intake: Oral 118 Output: Urine 750 Other: Voiding Method Urinal Urinal # Voids 3 - Exam In general patient is alert and oriented ?-3 in no distress HEENT head normocephalic and atraumatic Neck is supple no JVD no goiter no lymphadenopathy no carotid bruit Chest examination is clear to auscultation no crackles no wheezing Cardiac exam reveals regular heart sounds S1 and S2 no gallops no murmurs Abdomen is soft with mild tenderness in the [place]-umbilical area no organomegaly with normal bowel sounds Extremity exam reveals no edema no cyanosis or clubbing Neurological examination reveals no gross focal deficits - Labs CBC & Chem 7: 06/11/23 05:18 06/11/23 05:26 Labs: Abnormal Lab Results - Last 24 Hours (Table) 06/10/23 06/10/23 06/11/23 Range/Units 11:03 19:52 05:18 WBC 14.73 H (4.50-10.00) X 10*3/uL MCH 32.6 H (27.0-32.0) pg Neutrophils # 10.88 H (1.80-7.70) X 10*3/uL Monocytes # 1.76 H (0.20-1.00) X 10*3/uL Crenated Cell 3+ A Sodium (135-145) mmol/L Chloride (96-109) mmol/L BUN (9.0-27.0) mg/dL BUN/Creatinine Ratio (12.00-20.00) Ratio Glucose (70-110) mg/dL POC Glucose (mg/dL) 200 H (70-110) mg/dL Urine Glucose (UA) 1+ H (Negative) 06/11/23 06/11/23 Range/Units 05:26 06:29 WBC (4.50-10.00) X 10*3/uL MCH (27.0-32.0) pg Neutrophils # (1.80-7.70) X 10*3/uL Monocytes # (0.20-1.00) X 10*3/uL Crenated Cell Sodium 128 L (135-145) mmol/L Chloride 92 L (96-109) mmol/L BUN 5.2 L (9.0-27.0) mg/dL BUN/Creatinine Ratio 6.50 L (12.00-20.00) Ratio Glucose 158 H (70-110) mg/dL POC Glucose (mg/dL) 214 H (70-110) mg/dL Urine Glucose (UA) (Negative) Assessment and Plan Plan: Abdominal pain Mild leukocytosis, could be reactive no evidence of urinary tract infection on urine analysis, will monitor closely off antibiotics at this time, will recheck CBC in a.m.. Evidence of right kidney hydronephrosis and hydroureter Severe hyponatremia History of abdominal aortic aneurysm with history of stent placement Underlying history of hypertension Underlying history of depression Underlying history of COPD Underlying history of eem-twcuzep-hidkqplza diabetes mellitus Previous history of peripheral arterial disease with superficial femoral artery occlusion with history of left femoral popliteal bypass graft surgery Underlying history of hyperlipidemia Underlying history of hypothyroidism Underlying history of benign prostatic hypertrophy At this time patient will be admitted to medical floor He was started on IV normal saline for management of dehydration was severe hyponatremia Urology consultation was requested due to right sided hydronephrosis and hyd roureter Infectious disease for leukocytosis. Chest x-ray ordered At this time will hold oral medications for diabetes cover with insulin sliding scale Will continue to follow closely during this admission
[2023-06-11] MEDS: NICOTINE 14MG/24HR PATCH TRANSDERM SCH (11:56)
[2023-06-11 12:25] LABS: Glucose,Whole Blood 155 mg/dL (70-110)
--- NOTE | 2023-06-11 13:15 | XR ---
EXAMINATION TYPE: XR chest 2V DATE OF EXAM: 06/11/2023 COMPARISON: 05/04/2022 INDICATION: Leukocytosis TECHNIQUE: Frontal and lateral views of the chest are obtained. FINDINGS: The heart size is normal. The pulmonary vasculature is normal. The lungs are clear. No suspicious consolidations or infiltrates. IMPRESSION: 1. No acute pulmonary process. Follow-up can be performed as clinically indicated
[2023-06-11] MEDS: ONDANSETRON 4 MG/2 ML VIAL IVP PRN (16:23)
[2023-06-11 17:56] LABS: Glucose,Whole Blood 177 mg/dL (70-110)
[2023-06-11 20:05] LABS: Glucose,Whole Blood 271 mg/dL (70-110)
[2023-06-11] MEDS: MELATONIN 5 MG TABLET PO SCH (20:09)
[2023-06-11] MEDS: ATORVASTATIN 80 MG TAB PO SCH (20:09)
[2023-06-12 00:30] LABS: Appearance,Urine Clear (Clear); Bilirubin,Urine Negative (Negative); Blood,Urine Negative (Negative); Color,Urine Colorless; Glucose,Urine (UA) 3+ (Negative); Ketones,Urine Negative (Negative); Leukocyte Esterase,Urine Negative (Negative); Nitrite,Urine Negative (Negative); Protein,Urine Negative (Negative); Specific Gravity,Urine 1.003 (1.001-1.035); Urobilinogen,Urine <2.0 mg/dL (<2.0)
[2023-06-12] MEDS: SODIUM CHLORIDE 0.9% 1,000 ML IV SCH (01:34)
[2023-06-12] MEDS: ONDANSETRON 4 MG/2 ML VIAL IVP PRN (01:48)
[2023-06-12] MEDS: HYDROmorphone 1 MG/ML 1 ML SYRINGE IVP PRN (01:48)
[2023-06-12] MEDS: LEVOTHYROXINE 25 MCG TAB PO SCH (06:17)
[2023-06-12 06:18] LABS: Glucose,Whole Blood 145 mg/dL (70-110)
[2023-06-12] MEDS: INSULIN ASPART (NovoLOG) 100 UNIT/ML VIAL SQ SCH ×2 (06:19→13:08)
--- NOTE | 2023-06-12 07:57 | P.CONS ---
History of Present Illness - Reason for Consult Consult date: 06/11/23 - History of Present Illness Patient is a 62-year-old male with a past medical history significant for diabetes mellitus hypertension hyperlipidemia CVA TIA skin and throat cancer presenting to the hospital for evaluation of abdominal pain along with vomiting patient abdominal pain has been going on for about a 2 weeks with worsening over the week before presentation to the hospital patient described the pain to be more on the right side of the abdominal area colicky with associated vomiting and decreased appetite. Denies having any diarrhea or constipation patient denies any fever or chills and did not have any fever on presentation to the hospital or during this hospital stay patient was not tachycardic hypotensive or hypoxic patient did have white count of 12.4 which is up to 14.73 today creatinine has been normal liver enzymes are normal patient did have a negative UA CT abdominal pelvis fluid adjacent to the right kidney with mild right hydronephrosis and hydroureter without obstructing etiology identified nonobstructive renal stones are present within the bilateral kidneys consider recent passage of a his renal ureteral stone stented abdominal aortic aneurysm without evidence for endovascular leak patient also have abdominal bladder ultrasound small amount of debris's within the urinary bladder consider cystitis patient did have a chest x-ray no acute process because of his elevated white count infectious disease was consulted for further management Past Medical History Past Medical History: Cancer, CVA/TIA, Diabetes Mellitus, Hyperlipidemia, Hypertension, Thyroid Disorder, Vascular Disorder Additional Past Medical History / Comment(s): Current pain in calves. 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 No residual effects from CVA. Hx skin and throat cancer. Hx pancreatitis in 2012. "abdominal pain and nausea from medications, better since taking Pantoprazole". 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 Past Psychological History: Bipolar Additional Psychological History / Comment(s): Depakote is for bipolar. Pt resides alone. Smoking Status: Current every day smoker Past Alcohol Use History: None Reported Additional Past Alcohol Use History / Comment(s): Smoked on and off for many years, currently less than 1/2 pp'day. Used to drink 3 beers nightly, now has 1 every other day. Past Drug Use History: Marijuana Additional Drug Use History / Comment(s): MARIJUANA USE OCCASSIONALLY-INSTRUCTED TO REFRAIN FROM USE FOR AT LEAST 24 HOURS PRIOR TO PROCEDURE. - Past Family History Mother Family Medical History: CVA/TIA Father Family Medical History: Myocardial Infarction ([place]) Additional Family Medical History / Comment(s): [place] in 50's. Medications and Allergies Home Medications Medication Instructions Recorded Confirmed Type Levothyroxine Sodium [Synthroid] 25 mcg PO DAILY 08/07/19 06/10/23 History glipiZIDE [Glucotrol] 5 mg PO TID PRN 08/07/19 06/10/23 History ALPRAZolam [Xanax] 0.5 mg PO BID 05/04/22 06/10/23 History Divalproex ER [Depakote ER] 500 mg PO BID 05/04/22 06/10/23 History Melatonin [Melatonin Dissolving 10 mg PO HS 05/04/22 06/10/23 History Tablet] metFORMIN HCL 1,000 mg PO BID 05/04/22 06/10/23 History Aspirin 81 mg PO DAILY 06/29/22 06/10/23 History Atorvastatin [Lipitor] 80 mg PO HS 06/29/22 06/10/23 History Pantoprazole [Protonix] 40 mg PO BID 06/29/22 06/10/23 History Metoprolol Succinate (ER) [Toprol 25 mg PO DAILY 01/03/23 06/10/23 History XL] Ticagrelor [Brilinta] 90 mg PO BID #0 tab 01/06/23 06/10/23 Rx Tamsulosin [Flomax] 0.4 mg PO DAILY 06/10/23 06/10/23 History lisinopriL [Zestril] 20 mg PO BID 06/10/23 06/10/23 History Allergies Allergy/AdvReac Type Severity Reaction Status Date / Time tetracycline [Tetracycline] Allergy Rash/Hives Verified 06/10/23 11:00 Physical Exam Vitals: Vital Signs Temp Pulse Pulse Resp BP BP BP 06/11/23 07:00 98.3 F 93 16 106/74 06/11/23 00:25 97.7 F 98 13 101/73 06/10/23 20:44 98 06/10/23 19:20 97.4 F L 97 16 122/87 06/10/23 18:02 97.8 F 93 16 105/75 06/10/23 16:23 97.9 F 92 16 106/86 06/10/23 14:15 87 16 116/96 Pulse Ox 06/11/23 07:00 96 06/11/23 00:25 93 L 06/10/23 20:44 06/10/23 19:20 94 L 06/10/23 18:02 94 L 06/10/23 16:23 93 L 06/10/23 14:15 95 Intake and Output 06/10/23 06/11/23 06/11/23 22:59 06:59 14:59 Intake Total 118 Output Total 750 Balance -750 118 Intake: Oral 118 Output: Urine 750 Other: Voiding Method Urinal # Voids 3 Weight 80.739 kg Results CBC & Chem 7: 06/11/23 05:18 06/11/23 05:26 Labs: Abnormal Lab Results - Last 24 Hours (Table) 06/10/23 06/11/23 06/11/23 Range/Units 19:52 05:18 05:18 WBC 14.73 H (4.50-10.00) X 10*3/uL MCH 32.6 H (27.0-32.0) pg Neutrophils # 10.88 H (1.80-7.70) X 10*3/uL Monocytes # 1.76 H (0.20-1.00) X 10*3/uL Crenated Cell 3+ A Sodium (135-145) mmol/L Chloride (96-109) mmol/L BUN (9.0-27.0) mg/dL BUN/Creatinine Ratio (12.00-20.00) Ratio Glucose (70-110) mg/dL POC Glucose (mg/dL) 200 H (70-110) mg/dL Hemoglobin A1c 7.6 H (<=6.0) % Plasma Lactic Acid Gopal (0.7-2.0) mmol/L 06/11/23 06/11/23 06/11/23 Range/Units 05:26 06:29 12:23 WBC (4.50-10.00) X 10*3/uL MCH (27.0-32.0) pg Neutrophils # (1.80-7.70) X 10*3/uL Monocytes # (0.20-1.00) X 10*3/uL Crenated Cell Sodium 128 L (135-145) mmol/L Chloride 92 L (96-109) mmol/L BUN 5.2 L (9.0-27.0) mg/dL BUN/Creatinine Ratio 6.50 L (12.00-20.00) Ratio Glucose 158 H (70-110) mg/dL POC Glucose (mg/dL) 214 H 155 H (70-110) mg/dL Hemoglobin A1c (<=6.0) % Plasma Lactic Acid Gopal (0.7-2.0) mmol/L 06/11/23 Range/Units 12:56 WBC (4.50-10.00) X 10*3/uL MCH (27.0-32.0) pg Neutrophils # (1.80-7.70) X 10*3/uL Monocytes # (0.20-1.00) X 10*3/uL Crenated Cell Sodium (135-145) mmol/L Chloride (96-109) mmol/L BUN (9.0-27.0) mg/dL BUN/Creatinine Ratio (12.00-20.00) Ratio Glucose (70-110) mg/dL POC Glucose (mg/dL) (70-110) mg/dL Hemoglobin A1c (<=6.0) % Plasma Lactic Acid Gopal 3.6 H* (0.7-2.0) mmol/L Assessment and Plan Plan: 1patient with leukocytosis in this patient presenting the hospital with abdominal pain along with nausea or vomiting patient did have abnormal CT scan of abdominal pelvis CT shows right-sided hydronephrosis hydroureter and some fluid surrounding the kidney however the UA was reported to be negative currently do not have any other obvious focus for this elevated white count. 2we will repeat his UA and check his inflammatory markers. 3we will empirically Start the patient on Rocephin 2 g daily. We will follow on clinical condition and cultures to further adjust medication if needed Thank you for this consultation we will follow the patient along with you Dictation was produced using boarding pass dictation software. please excuse any grammatical, word or spelling errors. Time with Patient: Greater than 30
[2023-06-12 08:31] VITALS: BP 161/67; RESP 18; TEMP 98.9
[2023-06-12 08:38] LABS: Basophils # (A) 0.03 X 10*3/uL (0.00-0.10); Basophils % (A) 0.3 %; Eosinophils # (A) 0.15 X 10*3/uL (0.04-0.35); Eosinophils % (A) 1.3 %; HCT 34.6 % (39.6-50.0); HGB 12.1 d/dL (13.0-17.0); Lymphocytes # (A) 2.01 X 10*3/uL (0.90-5.00); Lymphocytes % (A) 17.6 %; MCH 33.7 pg (27.0-32.0); MCV 96.4 FL (80.0-97.0); Mean Platelet Volume 10.2 FL (9.5-12.2); Monocytes # (A) 1.63 X 10*3/uL (0.20-1.00); Monocytes % (A) 14.2 %; NRBC Per 100 WBC 0 X 10*3/uL (0.00-0.01); Neutrophils # (A) 7.57 X 10*3/uL (1.80-7.70); Neutrophils % (A) 66.1 %; Platelet Count 263 X 10*3/uL (140-440); RBC 3.59 X 10*6/uL (4.40-5.60); RDW 14.4 % (11.5-14.5); WBC 11.45 X 10*3/uL (4.50-10.00)
--- NOTE | 2023-06-12 08:40 | P.PN ---
Subjective Progress Note Date: 06/12/23 no acute overnight events, denies any flank pain dysuria or gross hematuria. Indicates abdominal pain improved significantly this morning Objective - Vital Signs Vital signs: Vital Signs Temp 98.9 F 06/12/23 07:00 Pulse 108 H 06/12/23 01:41 Resp 18 06/12/23 07:00 BP 161/67 06/12/23 07:00 Pulse Ox 94 L 06/12/23 07:00 FiO2 Intake & Output 06/11/23 06/12/23 06/12/23 18:59 06:59 18:59 Intake Total 236 Balance 236 Intake: Oral 236 Other: Voiding Method Urinal # Voids 3 3 - Labs CBC & Chem 7: 06/12/23 05:29 06/11/23 05:26 Labs: Abnormal Lab Results - Last 24 Hours (Table) 06/11/23 06/11/23 06/11/23 Range/Units 05:18 05:18 05:26 WBC 14.73 H (4.50-10.00) X 10*3/uL MCH 32.6 H (27.0-32.0) pg Neutrophils # 10.88 H (1.80-7.70) X 10*3/uL Monocytes # 1.76 H (0.20-1.00) X 10*3/uL Crenated Cell 3+ A Sodium 128 L (135-145) mmol/L Chloride 92 L (96-109) mmol/L BUN 5.2 L (9.0-27.0) mg/dL BUN/Creatinine Ratio 6.50 L (12.00-20.00) Ratio Glucose 158 H (70-110) mg/dL POC Glucose (mg/dL) (70-110) mg/dL Hemoglobin A1c 7.6 H (<=6.0) % Plasma Lactic Acid Gopal (0.7-2.0) mmol/L Urine Glucose (UA) (Negative) 06/11/23 06/11/23 06/11/23 Range/Units 12:23 12:56 17:45 WBC (4.50-10.00) X 10*3/uL MCH (27.0-32.0) pg Neutrophils # (1.80-7.70) X 10*3/uL Monocytes # (0.20-1.00) X 10*3/uL Crenated Cell Sodium (135-145) mmol/L Chloride (96-109) mmol/L BUN (9.0-27.0) mg/dL BUN/Creatinine Ratio (12.00-20.00) Ratio Glucose (70-110) mg/dL POC Glucose (mg/dL) 155 H (70-110) mg/dL Hemoglobin A1c (<=6.0) % Plasma Lactic Acid Gopal 3.6 H* (0.7-2.0) mmol/L Urine Glucose (UA) 3+ H (Negative) 06/11/23 06/11/23 06/11/23 Range/Units 17:54 18:59 20:04 WBC (4.50-10.00) X 10*3/uL MCH (27.0-32.0) pg Neutrophils # (1.80-7.70) X 10*3/uL Monocytes # (0.20-1.00) X 10*3/uL Crenated Cell Sodium (135-145) mmol/L Chloride (96-109) mmol/L BUN (9.0-27.0) mg/dL BUN/Creatinine Ratio (12.00-20.00) Ratio Glucose (70-110) mg/dL POC Glucose (mg/dL) 177 H 271 H (70-110) mg/dL Hemoglobin A1c (<=6.0) % Plasma Lactic Acid Gopal 3.3 H* (0.7-2.0) mmol/L Urine Glucose (UA) (Negative) 06/12/23 Range/Units 06:17 WBC (4.50-10.00) X 10*3/uL MCH (27.0-32.0) pg Neutrophils # (1.80-7.70) X 10*3/uL Monocytes # (0.20-1.00) X 10*3/uL Crenated Cell Sodium (135-145) mmol/L Chloride (96-109) mmol/L BUN (9.0-27.0) mg/dL BUN/Creatinine Ratio (12.00-20.00) Ratio Glucose (70-110) mg/dL POC Glucose (mg/dL) 145 H (70-110) mg/dL Hemoglobin A1c (<=6.0) % Plasma Lactic Acid Gopal (0.7-2.0) mmol/L Urine Glucose (UA) (Negative) Assessment and Plan Assessment: 62-year-old male showed mild right hydronephrosis, periumbilical abdominal pain. Indicates pain improved this morning. Kidney function is stable -Urology standpoint he is ok for discharge, -Can follow-up as an outpatient with Dr. Stevenson for his hydronephrosis
[2023-06-12 08:52] LABS: ALT 11 U/L (10-49); AST 14 U/L (14-35); Albumin 3.7 d/dL (3.8-4.9); Albumin/Globulin Ratio 2.06 Ratio (1.60-3.17); Alkaline Phosphatase 46 U/L (41-126); BUN/Creat Ratio 5.62 Ratio (12.00-20.00); Blood Urea Nitrogen 4.5 mg/dL (9.0-27.0); Calcium 8.8 mg/dL (8.7-10.3); Carbon Dioxide 25.9 mmol/L (21.6-31.8); Chloride 96 mmol/L (96-109); Globulin 1.8 d/dL (1.6-3.3); Glucose 136 mg/dL (70-110); Potassium 4.8 mmol/L (3.5-5.5); Sodium 131 mmol/L (135-145); Total Bilirubin 0.7 mg/dL (0.3-1.2); Total Protein 5.5 d/dL (6.2-8.2)
[2023-06-12] MEDS: ALPRAZolam 0.5 MG TAB PO SCH (08:53)
[2023-06-12] MEDS: METOPROLOL SUCCINATE (ER) 25 MG TAB.ER.24H PO SCH (08:53)
[2023-06-12] MEDS: ASPIRIN 81 MG PO SCH (08:53)
[2023-06-12] MEDS: PANTOPRAZOLE 40 MG/10 ML VIAL IV SCH (08:53)
[2023-06-12] MEDS: lisinopriL 20 MG TAB PO SCH (08:53)
[2023-06-12] MEDS: TAMSULOSIN 0.4 MG CAP.ER.24H PO SCH (08:53)
[2023-06-12] MEDS: NICOTINE 14MG/24HR PATCH TRANSDERM SCH (08:53)
[2023-06-12 08:54] VITALS: PULSE 92
[2023-06-12] MEDS: DIVALPROEX ER 500 MG TAB.ER.24H PO SCH (08:54)
[2023-06-12] MEDS: TICAGRELOR 90 MG TAB PO SCH (08:54)
[2023-06-12 11:56] LABS: Glucose,Whole Blood 280 mg/dL (70-110)
--- NOTE | 2023-06-12 17:03 | P.DS ---
Providers Date of admission: 06/11/23 18:08 Expected date of discharge: 06/12/23 Attending physician: Marin Eaton Consults: 06/10/23 10:35 Consult Physician Routine Consulting Provider: Ton Stevenson Consult Reason/Comments: hydronephrosis Do you want consulting provider notified?: Yes 06/11/23 10:04 Consult Physician Routine Consulting Provider: Jaden Panchal Consult Reason/Comments: Leukocytosis Do you want consulting provider notified?: Yes Primary care physician: Marin Angelito Lds Hospital Course: Diagnosis on discharge: Abdominal pain Mild leukocytosis, could be reactive no evidence of urinary tract infection on urine analysis, will monitor closely off antibiotics at this time, will recheck CBC in a.m.. Evidence of right kidney hydronephrosis and hydroureter Severe hyponatremia History of abdominal aortic aneurysm with history of stent placement Underlying history of hypertension Underlying history of depression Underlying history of COPD Underlying history of [id number] diabetes mellitus Previous history of peripheral arterial disease with superficial femoral artery occlusion with history of left femoral popliteal bypass graft surgery Underlying history of hyperlipidemia Underlying history of hypothyroidism Underlying history of benign prostatic hypertrophy Hospital course: Sumit Yang, is a 62-year-old male who presented to [facility] emergency room with a chief complaint of abdominal pain, patient stated that his pain started about 1 week ago and has been worsening. He was evaluated in the emergency room vital examination on presentation revealed a temperature of 97.7 pulse 85 respiration 18 blood pressure 92/70 pulse ox 97% on room air Laboratory data revealed a white blood count of 12.4 hemoglobin 14.1 platelet count 280 sodium 124 potassium 4.6 chloride 26 BUN 7 creatinine 0.72 glucose level 187 Testing in the emergency room revealed computed tomography scan of the abdomen and pelvis revealed evidence of right kidney hydronephrosis with hydroureter with fluid collection adjacent to the right kidney Patient was admitted to medical floor for further evaluation and treatment On 06/11/2023 patient is alert and oriented 3. Patient still complaining of generalized abdominal discomfort. White blood cell elevated at 14.73. UA was n egative. We'll order chest x-ray to rule out pneumonia and consult infectious disease services. Discussed case with urology services no presents for cystoscopy at this time will continue to monitor patient. Per nursing staff patient apparently is threatening to leave me if not discharged. At this time patient is not medically cleared for discharge due to continued elevated white blood cell count, abdominal pain hyponatremia On 06/12/2023 patient was seen and examined on the medical floor he is alert and oriented 3 in no apparent distress, there is no fever or chills no headache or dizziness no chest pain no shortness of breath no cough no nausea or vomiting no abdominal pain no diarrhea and no urinary symptoms, abdominal pain has resolved per patient. No plans per urology for cystoscopy at this time. Patient had significant elevation in white blood count, and elevated lactic acid, all suggestive of sepsis. He was monitored for the first 24 hours without antibiotics and his white blood count went up from 12.4-14.7 patient was started on IV ceftriaxone and improved, he will be discharged to home today, he was given a course of Ceftin at the time of discharge. He will be followed in our office within 1 week, Patient Condition at Discharge: Stable Plan - Discharge Summary Discharge Rx Participant: Yes New Discharge Prescriptions: No Action glipiZIDE [Glucotrol] 5 mg PO TID PRN PRN Reason: IF CBG > 200 Levothyroxine Sodium [Synthroid] 25 mcg PO DAILY Divalproex ER [Depakote ER] 500 mg PO BID ALPRAZolam [Xanax] 0.5 mg PO BID Pantoprazole [Protonix] 40 mg PO BID Metoprolol Succinate (ER) [Toprol XL] 25 mg PO DAILY lisinopriL [Zestril] 20 mg PO BID metFORMIN HCL 1,000 mg PO BID Melatonin [Melatonin Dissolving Tablet] 10 mg PO HS Atorvastatin [Lipitor] 80 mg PO HS Aspirin 81 mg PO DAILY Ticagrelor [Brilinta] 90 mg PO BID #0 tab Tamsulosin [Flomax] 0.4 mg PO DAILY Discharge Medication List Levothyroxine Sodium [Synthroid] 25 mcg PO DAILY 08/07/19 [History] glipiZIDE [Glucotrol] 5 mg PO TID PRN 08/07/19 [History] ALPRAZolam [Xanax] 0.5 mg PO BID 05/04/22 [History] Divalproex ER [Depakote ER] 500 mg PO BID 05/04/22 [History] Melatonin [Melatonin Dissolving Tablet] 10 mg PO HS 05/04/22 [History] metFORMIN HCL 1,000 mg PO BID 05/04/22 [History] Aspirin 81 mg PO DAILY 06/29/22 [History] Atorvastatin [Lipitor] 80 mg PO HS 06/29/22 [History] Pantoprazole [Protonix] 40 mg PO BID 06/29/22 [History] Metoprolol Succinate (ER) [Toprol XL] 25 mg PO DAILY 01/03/23 [History] Ticagrelor [Brilinta] 90 mg PO BID #0 tab 01/06/23 [Rx] Tamsulosin [Flomax] 0.4 mg PO DAILY 06/10/23 [History] lisinopriL [Zestril] 20 mg PO BID 06/10/23 [History] Follow up Appointment(s)/Referral(s): Marin Eaton MD [Primary Care Provider] - 1-2 days Discharge Disposition: HOME SELF-CARE
== END 2023-06-12 13:10 | disposition home or self-care (01) | DRG 694 ==
LOC: EC 07:40 → 6NMEDSUR 10:35 → OBSVTOIN 06-11 18:08
PROVIDERS: ADMIT Internal Medicine; ATTEND Internal Medicine
DX: N13.2 Hydronephrosis with renal and ureteral calculous obstruction (principal); E87.1 Hypo-osmolality and hyponatremia; E03.9 Hypothyroidism, unspecified; I10 Essential (primary) hypertension; E11.51 Type 2 diabetes mellitus with diabetic peripheral angiopathy without gangrene; Z79.890 Hormone replacement therapy; J44.9 Chronic obstructive pulmonary disease, unspecified; E78.5 Hyperlipidemia, unspecified; E86.0 Dehydration; F32.A Depression, unspecified; F17.210 Nicotine dependence, cigarettes, uncomplicated; N40.0 Benign prostatic hyperplasia without lower urinary tract symptoms; Z79.02 Long term (current) use of antithrombotics/antiplatelets; Z79.82 Long term (current) use of aspirin; Z79.84 Long term (current) use of oral hypoglycemic drugs; Z79.899 Other long term (current) drug therapy; Z82.49 Family history of ischemic heart disease and other diseases of the circulatory system; Z86.79 Personal history of other diseases of the circulatory system; Z85.819 Personal history of malignant neoplasm of unspecified site of lip, oral cavity, and pharynx; Z86.73 Personal history of transient ischemic attack (TIA), and cerebral infarction without residual deficits; Z87.440 Personal history of urinary (tract) infections; Z87.442 Personal history of urinary calculi; Z87.01 Personal history of pneumonia (recurrent); Z95.828 Presence of other vascular implants and grafts; Z88.2 Allergy status to sulfonamides; Z87.19 Personal history of other diseases of the digestive system
CPT/HCPCS: 36415; 71046; 74177; 76770; 80053; 80164; 81003; 82150; 83036; 83605; 83690; 84484; 85025; 85610; 85730; 87040; 93005; 96361; 96374; 96375; 96376; 99285